=== PATIENT | female | born 1935 | race Caucasian/White ===

== ENCOUNTER → 2017-03-16 | Outpatient (CLI) | payer MEDICARE, OTHER ==
[2017-03-17 11:25] LABS: ALANINE AMINOTRANSFERASE 33 U/L (9-52); ALBUMIN 4.5 g/dL (3.5-5.0); ALKALINE PHOSPHATASE 106 U/L (38-126); ASPARTATE AMINO TRANSFERASE 22 U/L (14-36); BILIRUBIN,DIRECT 0.3 mg/dL (0.0-0.4); BILIRUBIN,TOTAL 0.6 mg/dL (0.2-1.3); CHOLESTEROL 207.41 mg/dL (0-200); Direct HDL 64 mg/dL (>40); TOTAL PROTEIN 7.5 g/dL (6.3-8.2); TRIGLYCERIDES 169 mg/dL (<150)
[2017-03-17 11:36] LABS: DIRECT LDL 112 mg/dL (<100)
[2017-03-17 11:39] LABS: VLDL CHOLESTEROL 33.8 mg/dL (10-31)
== END ==
LOC: OD 14:00
PROVIDERS: ATTEND Specialist
DX: E78.4 Other hyperlipidemia (principal); I10 Essential (primary) hypertension; I25.2 Old myocardial infarction; I34.0 Nonrheumatic mitral (valve) insufficiency; I42.8 Other cardiomyopathies; I73.9 Peripheral vascular disease, unspecified; E78.5 Hyperlipidemia, unspecified; Z79.899 Other long term (current) drug therapy; R07.9 Chest pain, unspecified; R06.00 Dyspnea, unspecified; I25.10 Atherosclerotic heart disease of native coronary artery without angina pectoris
CPT/HCPCS: 36415; 80061; 80076

== ENCOUNTER → 2017-05-05 | Outpatient (CLI) | payer MEDICARE, OTHER ==
[2017-05-05 09:20] LABS: ABSOLUTE EOSINOPHILS # (AUTO) 0.2 10^3/uL (0.0-0.6); ABSOLUTE LYMPHOCYTES (AUTO) 1.2 10^3/uL (0.5-4.7); ABSOLUTE MONOCYTES (AUTO) 0.5 10^3/uL (0.1-1.4); ABSOLUTE NEUT (AUTO) 4.2 10^3/uL (1.7-8.2); BASOPHILS % (AUTO) 0.8 % (0-2); EOSINOPHILS % (AUTO) 2.6 % (0-6); HEMATOCRIT 39.9 % (36.0-47.0); HEMOGLOBIN 12.8 g/dL (12.0-15.5); HGB HCT DIFFERENCE -1.5; LYMPHOCYTES % (AUTO) 19.3 % (13-45); MEAN CORPUSCULAR HEMOGLOBIN 28.6 pg (27.0-33.4); MEAN CORPUSCULAR HGB CONC 32.1 g/dL (32.0-36.0); MEAN CORPUSCULAR VOLUME 89 fl (80-97); MONOCYTES % (AUTO) 8.5 % (3-13); RED BLOOD COUNT 4.47 10^6/uL (3.72-5.28); RED CELL DISTRIBUTION WIDTH 14.6 % (11.5-14.0); SEGMENTED NEUTROPHILS % (AUTO) 68.8 % (42-78); WHITE BLOOD COUNT 6.2 10^3/uL (4.0-10.5)
[2017-05-05 09:52] LABS: ALANINE AMINOTRANSFERASE 21 U/L (9-52); ALBUMIN 3.9 g/dL (3.5-5.0); ALKALINE PHOSPHATASE 108 U/L (38-126); ANION GAP 10 (5-19); ASPARTATE AMINO TRANSFERASE 19 U/L (14-36); BILIRUBIN,DIRECT 0.4 mg/dL (0.0-0.4); BILIRUBIN,TOTAL 0.6 mg/dL (0.2-1.3); BLOOD UREA NITROGEN 18 mg/dL (7-20); CALCIUM 9.2 mg/dL (8.4-10.2); CARBON DIOXIDE 29 mmol/L (22-30); CHLORIDE 107 mmol/L (98-107); CHOLESTEROL 192.66 mg/dL (0-200); CREATININE RESULT 0.66 mg/dL (0.52-1.25); Direct HDL 52 mg/dL (>40); GLUCOSE 95 mg/dL (75-110); POTASSIUM 3.8 mmol/L (3.6-5.0); SODIUM 145.8 mmol/L (137-145); TOTAL PROTEIN 6.7 g/dL (6.3-8.2); TRIGLYCERIDES 131 mg/dL (<150)
[2017-05-05 10:03] LABS: DIRECT LDL 115 mg/dL (<100)
== END ==
LOC: OD 08:25
PROVIDERS: ATTEND Internal Medicine
DX: E78.2 Mixed hyperlipidemia (principal); R53.83 Other fatigue
CPT/HCPCS: 36415; 80053; 80061; 84443; 85025

== ENCOUNTER → 2017-07-19 | Outpatient (CLI) | payer MEDICARE, OTHER ==
[2017-07-19 14:59] LABS: ABSOLUTE EOSINOPHILS # (AUTO) 0.1 10^3/uL (0.0-0.6); ABSOLUTE LYMPHOCYTES (AUTO) 1.2 10^3/uL (0.5-4.7); ABSOLUTE MONOCYTES (AUTO) 0.5 10^3/uL (0.1-1.4); ABSOLUTE NEUT (AUTO) 3.4 10^3/uL (1.7-8.2); BASOPHILS % (AUTO) 0.9 % (0-2); EOSINOPHILS % (AUTO) 2.1 % (0-6); HEMATOCRIT 38.6 % (36.0-47.0); HEMOGLOBIN 12.9 g/dL (12.0-15.5); HGB HCT DIFFERENCE 0.1; LYMPHOCYTES % (AUTO) 23.6 % (13-45); MEAN CORPUSCULAR HEMOGLOBIN 28.8 pg (27.0-33.4); MEAN CORPUSCULAR HGB CONC 33.3 g/dL (32.0-36.0); MEAN CORPUSCULAR VOLUME 86 fl (80-97); RED BLOOD COUNT 4.46 10^6/uL (3.72-5.28); RED CELL DISTRIBUTION WIDTH 14.9 % (11.5-14.0); SEGMENTED NEUTROPHILS % (AUTO) 64.4 % (42-78); WHITE BLOOD COUNT 5.3 10^3/uL (4.0-10.5)
[2017-07-19 15:04] LABS: PARTIAL THROMBOPLASTIN TIME 27.8 SEC (23.5-35.8); PROTHROMBIN TIME 13.8 SEC (11.4-15.4)
[2017-07-19 15:31] LABS: ANION GAP 13 (5-19); BLOOD UREA NITROGEN 23 mg/dL (7-20); CARBON DIOXIDE 24 mmol/L (22-30); CHLORIDE 109 mmol/L (98-107); CREATININE RESULT 0.71 mg/dL (0.52-1.25); GLUCOSE 87 mg/dL (75-110); MAGNESIUM 1.7 mg/dL (1.6-2.3); POTASSIUM 4.6 mmol/L (3.6-5.0); SODIUM 146.2 mmol/L (137-145)
== END ==
LOC: OD 13:39
PROVIDERS: ATTEND Specialist
DX: E78.4 Other hyperlipidemia (principal); I34.0 Nonrheumatic mitral (valve) insufficiency; R07.9 Chest pain, unspecified; I10 Essential (primary) hypertension; I25.2 Old myocardial infarction; I73.9 Peripheral vascular disease, unspecified; R06.00 Dyspnea, unspecified; Z79.899 Other long term (current) drug therapy
CPT/HCPCS: 36415; 80051; 82565; 82947; 83735; 84520; 85025; 85610; 85730

== ENCOUNTER 2017-11-14 12:50 | Observation (INO) | payer MEDICARE, OTHER ==
[2017-11-14] MEDS ORDERED: ASPIRIN 81 MG TABLET, CHEWABLE PO ONE (13:18)
[2017-11-14] MEDS ORDERED: DILTIAZEM HCL INJ 25 MG/5 ML VIAL IV ONE (13:27)
[2017-11-14] MEDS ORDERED: NORMAL SALINE 1000 ML 1,000 ML IV PRN (13:27)
--- NOTE | 2017-11-14 13:28 | ER Document Report ---
ED General - General Chief Complaint: Chest Pain Stated Complaint: CHEST PAIN, DIZZY Time Seen by Provider: 11/14/17 13:18 Mode of Arrival: Ambulatory Information source: Patient Notes: 82-year-old female history of chest pain on nitroglycerin Nitropatch presents with complaints of chest pain sensation this earlier today. Patient notes she has not been feeling well for the past week. She denies any fevers or chills denies any nausea vomiting admits to some shortness of breath. Upon arrival patient is noted to be in A. fib RVR, she denies any history of atrial fibrillation TRAVEL OUTSIDE OF THE [place] IN LAST 30 DAYS: No - HPI Onset: Last week Onset/Duration: Intermittent Quality of pain: Pressure Severity: Mild Pain Level: 1 Associated symptoms: Chest pain, Other Exacerbated by: Denies Relieved by: Denies Similar symptoms previously: Yes Recently seen / treated by doctor: Yes - Related Data Allergies/Adverse Reactions: No Known Allergies Allergy (Verified 04/29/15 10:31) Past Medical History - Social History Smoking Status: Never Smoker Cigarette use (# per day): No Chew tobacco use (# tins/day): No Smoking Education Provided: No Family History: Reviewed & Not Pertinent - Past Medical History Cardiac Medical History: Reports: Hx Heart Attack, Hx Hypertension - cardiovascular disease/ bp medications Pulmonary Medical History: Denies: Hx Asthma Neurological Medical History: Denies: Hx Cerebrovascular Accident, Hx Seizures GI Medical History: Denies: Hx Hepatitis, Hx Hiatal Hernia, Hx Ulcer Psychiatric Medical History: Reports: Hx Depression Infectious Medical History: Denies: Hx Hepatitis Past Surgical History: Reports: Hx Cardiac Surgery - mitral valve repair,, Hx Cholecystectomy, Hx Hysterectomy, Hx Open Heart Surgery - at least 15 yrs ago ( approx 1984). Denies: Hx Mastectomy, Hx Pacemaker. Comment Only: Hx Vascular Surgery - endarterectomy, subclavian bypass, fem fem bypass Review of Systems - Review of Systems Notes: REVIEW OF SYSTEMS: CONSTITUTIONAL : Denies fever, chills, or sweats. Denies recent illness. EENT: Denies eye, ear, throat, or mouth pain or symptoms. Denies nasal or sinus congestion or discharge. Denies throat, tongue, or mouth swelling or difficulty swallowing. CARDIOVASCULAR: Admits to chest pain RESPIRATORY: Denies cough, cold, or chest congestion. Denies shortness of breath, difficulty breathing, or wheezing. GASTROINTESTINAL: Denies abdominal pain or distention. Denies nausea, vomiting , or diarrhea. Denies blood in vomitus, stools, or per rectum. Denies black, tarry stools. Denies constipation. GENITOURINARY: Denies difficulty urinating, painful urination, burning, frequency, blood in urine, or discharge. FEMALE GENITOURINARY: Denies vaginal bleeding, heavy or abnormal periods, irregular periods. Denies vaginal discharge or odor. MUSCULOSKELETAL: Denies back or neck pain or stiffness. Denies joint pain or swelling. SKIN: Denies rash, lesions or sores. HEMATOLOGIC : Denies easy bruising or bleeding. LYMPHATIC: Denies swollen, enlarged glands. NEUROLOGICAL: Denies confusion or altered mental status. Denies passing out or loss of consciousness. Denies dizziness or lightheadedness. Denies headache. Denies weakness or paralysis or loss of use of either side. Denies problems with gait or speech. Denies sensory loss, numbness, or tingling. Denies seizures. PSYCHIATRIC: Denies anxiety or stress. Denies depression, suicidal ideation, or homicidal ideation. ALL OTHER SYSTEMS REVIEWED AND NEGATIVE. PHYSICAL EXAMINATION: GENERAL: Well-appearing, well-nourished and in no acute distress. HEAD: Atraumatic, normocephalic. EYES: Pupils equal round and reactive to light, extraocular movements intact, conjunctiva are normal. ENT: Nares patent, oropharynx clear without exudates. Moist mucous membranes. NECK: Normal range of motion, supple without lymphadenopathy LUNGS: Breath sounds clear to auscultation bilaterally and equal. No wheezes rales or rhonchi. HEART: A. fib RVR ABDOMEN: Soft, nontender, nondistended abdomen. No guarding, no rebound. No masses appreciated. Female : deferred Musculoskeletal: Normal range of motion, no pitting or edema. No cyanosis. NEUROLOGICAL: Cranial nerves grossly intact. Normal speech, normal gait. Normal sensory, motor exams PSYCH: Normal mood, normal affect. SKIN: Warm, Dry, normal turgor, no rashes or lesions noted. Dictation was performed using [employer] voice recognition software Physical Exam - Vital signs Vitals: Temp Pulse Resp BP Pulse Ox 97.3 F 111 H 18 84/49 L 100 11/14/17 13:09 11/14/17 13:09 11/14/17 13:09 11/14/17 13:09 11/14/17 13:09 Course - Re-evaluation Re-evalutation: 11/14/17 14:04 Patient was in A. fib RVR upon arrival heart rate in the 140s, Cardizem bolus has been ordered, prior to the medication being given the patient converted back to the 70s, no history of A. fib 11/14/17 15:06 Patient blood pressure is improved, overall looks well cardiac enzyme was negative I will admit the patient to the hospitalist service - Vital Signs Vital signs: Temp Pulse Resp BP Pulse Ox 97.3 F 111 H 14 96/70 L 98 11/14/17 13:09 11/14/17 13:09 11/14/17 14:03 11/14/17 14:03 11/14/17 13:18 - Laboratory Result Diagrams: 11/14/17 13:42 11/14/17 13:42 Laboratory results interpreted by me: 11/14/17 11/14/17 13:42 13:42 RDW 15.7 H Seg Neutrophils % 78.1 H Lymphocytes % 12.6 L Chloride 111 H BUN 22 H - Diagnostic Test Radiology reviewed: Image reviewed, Reports reviewed - EKG Interpretation by Me EKG shows normal: [place], Intervals, QRS Complexes Rate: Tachycardia Rhythm: A.Fib Critical Care Note - Critical Care Note Total time excluding time spent on procedures (mins): 55 Comments: 55 minutes of critical care time spent in direct contact evaluating and reevaluating the patient, treating symptoms, reviewing labs and studies and speaking with family and consultants excluding any procedures Discharge - Discharge Clinical Impression: Atrial fibrillation Qualifiers: Atrial fibrillation type: paroxysmal Qualified Code(s): I48.0 - Paroxysmal atrial fibrillation Chest pain Qualifiers: Chest pain type: unspecified Qualified Code(s): R07.9 - Chest pain, unspecified Hypotension Qualifiers: Hypotension type: unspecified hypotension type Qualified Code(s): I95.9 - Hypotension, unspecified Condition: Fair Disposition: ADMITTED INPATIENT Admitting Provider: Hospitalist Unit Admitted: Telemetry Referrals: IVORY TRIVEDI MD [Primary Care Provider] - Follow up as needed
[2017-11-14 13:57] LABS: ABSOLUTE BASOPHILS # (AUTO) 0.1 10^3/uL (0.0-0.2); ABSOLUTE EOSINOPHILS # (AUTO) 0.1 10^3/uL (0.0-0.6); ABSOLUTE MONOCYTES (AUTO) 0.5 10^3/uL (0.1-1.4); ABSOLUTE NEUT (AUTO) 5.9 10^3/uL (1.7-8.2); BASOPHILS % (AUTO) 1.2 % (0-2); EOSINOPHILS % (AUTO) 0.9 % (0-6); HEMATOCRIT 40.4 % (36.0-47.0); HEMOGLOBIN 13.2 g/dL (12.0-15.5); LYMPHOCYTES % (AUTO) 12.6 % (13-45); MEAN CORPUSCULAR HEMOGLOBIN 27.8 pg (27.0-33.4); MEAN CORPUSCULAR HGB CONC 32.8 g/dL (32.0-36.0); MEAN CORPUSCULAR VOLUME 85 fl (80-97); MONOCYTES % (AUTO) 7.2 % (3-13); PLATELET COUNT 223 10^3/uL (150-450); RED BLOOD COUNT 4.77 10^6/uL (3.72-5.28); RED CELL DISTRIBUTION WIDTH 15.7 % (11.5-14.0); SEGMENTED NEUTROPHILS % (AUTO) 78.1 % (42-78); TOTAL CELLS COUNTED % (AUTO) 100 %; WHITE BLOOD COUNT 7.5 10^3/uL (4.0-10.5)
--- NOTE | 2017-11-14 14:07 | RADIOLOGY REPORT (SQ) ---
EXAM DESCRIPTION: CHEST SINGLE VIEW COMPLETED DATE/TIME: 11/14/2017 1:58 pm REASON FOR STUDY: chest pain COMPARISON: None. EXAM PARAMETERS: NUMBER OF VIEWS: One view. TECHNIQUE: Single frontal radiographic view of the chest acquired. RADIATION DOSE: NA LIMITATIONS: None. FINDINGS: LUNGS AND PLEURA: No opacities, masses or pneumothorax. No pleural effusion. MEDIASTINUM AND HILAR STRUCTURES: No masses. Contour normal. HEART AND VASCULAR STRUCTURES: The cardiac silhouette is at the upper limits of normal in size. BONES: No acute findings. HARDWARE: Patient is status post median sternotomy with valvular replacement OTHER: No other significant finding. IMPRESSION: NO ACUTE RADIOGRAPHIC FINDING IN THE CHEST. TECHNICAL DOCUMENTATION: JOB ID: [id number] [employer]- All Rights Reserved Reading location - IP/workstation name: [email or web address]
[2017-11-14 14:15] LABS: ALANINE AMINOTRANSFERASE 27 U/L (9-52); ALBUMIN 4.2 g/dL (3.5-5.0); ALKALINE PHOSPHATASE 118 U/L (38-126); ANION GAP 11 (5-19); ASPARTATE AMINO TRANSFERASE 25 U/L (14-36); BILIRUBIN,DIRECT 0.4 mg/dL (0.0-0.4); BILIRUBIN,TOTAL 0.5 mg/dL (0.2-1.3); BLOOD UREA NITROGEN 22 mg/dL (7-20); CALCIUM 9.7 mg/dL (8.4-10.2); CARBON DIOXIDE 22 mmol/L (22-30); CHLORIDE 111 mmol/L (98-107); CREATINE KINASE 35 U/L (30-135); GLUCOSE 101 mg/dL (75-110); POTASSIUM 4.2 mmol/L (3.6-5.0); SODIUM 143.6 mmol/L (137-145); TOTAL PROTEIN 7.1 g/dL (6.3-8.2)
[2017-11-14 14:27] LABS: CREATINE KINASE MB 0.82 ng/mL (<4.55)
[2017-11-14 14:51] LABS: TROPONIN I < 0.012 ng/mL
[2017-11-14] MEDS ORDERED: NITROGLYCERIN 0.4 MG/TAB 25 TAB/BOTTLE SL PRN (16:12)
[2017-11-14] MEDS ORDERED: ONDANSETRON HCL INJ/PF 4 MG/2 ML SDV IV PRN (16:12)
[2017-11-14] MEDS ORDERED: MAG HYDROX/AL HYDROX/SIMETH SUSP 30 ML UDCUP PO PRN (16:12)
--- NOTE | 2017-11-14 16:45 | PDOC H&P ---
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 Upon arrival to the emergency department she was found to be in A. fib with RVR at a rate of 140. The emergency department physician ordered IV diltiazem, ever , prior to receiving the medication the patient had spontaneously converted to a sinus rhythm with frequent PVCs. She reports resolution of chest pain that time. She denies previous similar episodes. 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 She states that they were in an argument last night and that she did not sleep well. Otherwise, she has had no recent illnesses and denies fever, chills, headaches, dizziness, dyspnea, orthopnea, abdominal pain, nausea vomiting and diarrhea. Evaluation in the emergency department an essentially normal laboratory workup and a normal chest x-ray. She is admitted to the hospitalist service for observational admission for chest pain. Past Medical History Cardiac Medical History: Reports: Myocardial Infarction, Hypertension - cardiovascular disease/ bp medications, Other - Claudication Denies: Pulmonary Embolism, Heart Murmur Pulmonary Medical History: Denies: Asthma, Chronic Obstructive Pulmonary Disease (COPD) EENT Medical History: Reports: None Neurological Medical History: Reports: None Denies: Seizures Endocrine Medical History: Reports: Hypothyroidism Renal/ Medical History: Reports: None Malignancy Medical History: Reports: None GI Medical History: Denies: Hepatitis, Hiatal Hernia Skin Medical History: Reports: None Psychiatric Medical History: Reports: Depression Traumatic Medical History: Reports: None Hematology: Denies: Anemia, Sickle Cell Disease Infectious Medical History: Reports: None Past Surgical History Past Surgical History: Reports: Cholecystectomy, Hysterectomy Denies: Amputation, Mastectomy, Pacemaker Comment Only: Vascular Surgery - endarterectomy, subclavian bypass, fem fem bypass Social History Information Source: Patient Lives with: Family Smoking Status: Never Smoker Frequency of Alcohol Use: None Hx Recreational Drug Use: No Drugs: None Hx Prescription Drug Abuse: No - Advance Directive Resuscitation Status: Full Code Family History Family History: Reviewed & Not Pertinent Parental Family History Reviewed: Yes Children Family History Reviewed: Yes Sibling(s) Family History Reviewed.: Yes Medication/Allergy Allergies/Adverse Reactions: No Known Allergies Allergy (Verified 11/14/17 15:19) Review of Systems Constitutional: PRESENT: fatigue. ABSENT: chills, fever(s), headache(s), weight gain, weight loss Eyes: ABSENT: visual disturbances Ears: ABSENT: hearing changes Cardiovascular: PRESENT: chest pain, palpitations. ABSENT: dyspnea on exertion , edema, orthropnea Respiratory: ABSENT: cough, hemoptysis Gastrointestinal: ABSENT: abdominal pain, constipation, diarrhea, hematemesis, hematochezia, nausea, vomiting Genitourinary: ABSENT: dysuria, hematuria Musculoskeletal: ABSENT: joint swelling Integumentary: ABSENT: rash, wounds Neurological: PRESENT: weakness, other - Near syncope. ABSENT: abnormal gait, abnormal speech, confusion, dizziness, focal weakness, syncope Psychiatric: ABSENT: anxiety, depression, homidical ideation, suicidal ideation Endocrine: ABSENT: cold intolerance, heat intolerance, polydipsia, polyuria Hematologic/Lymphatic: ABSENT: easy bleeding, easy bruising Physical Exam Vital Signs: Temp Pulse Resp BP Pulse Ox 97.3 F 111 H 18 100/75 91 L 11/14/17 13:09 11/14/17 13:09 11/14/17 16:01 11/14/17 16:01 11/14/17 16:01 General appearance: PRESENT: no acute distress, well-developed, well-nourished Head exam: PRESENT: atraumatic, normocephalic Eye exam: PRESENT: conjunctiva pink, EOMI, PERRLA. ABSENT: scleral icterus Ear exam: PRESENT: normal external ear exam Mouth exam: PRESENT: moist, tongue midline Neck exam: ABSENT: carotid bruit, JVD, lymphadenopathy, thyromegaly Respiratory exam: PRESENT: clear to auscultation shay. ABSENT: rales, rhonchi, wheezes Cardiovascular exam: PRESENT: RRR, +S1, +S2. ABSENT: diastolic murmur, rubs, systolic murmur Pulses: PRESENT: normal dorsalis pedis pul Vascular exam: PRESENT: normal capillary refill GI/Abdominal exam: PRESENT: normal bowel sounds, soft. ABSENT: distended, guarding, mass, organolmegaly, rebound, tenderness Rectal exam: PRESENT: deferred Extremities exam: PRESENT: full ROM. ABSENT: calf tenderness, clubbing, pedal edema Neurological exam: PRESENT: alert, awake, oriented to person, oriented to place , oriented to time, oriented to situation, CN II-XII grossly intact. ABSENT: motor sensory deficit Psychiatric exam: PRESENT: anxious, appropriate affect, normal mood. ABSENT: homicidal ideation, suicidal ideation Skin exam: PRESENT: dry, intact, warm. ABSENT: cyanosis, rash Results Impressions: Chest X-Ray 11/14/17 13:18 IMPRESSION: NO ACUTE RADIOGRAPHIC FINDING IN THE CHEST. Assessment & Plan - Diagnosis (1) Chest pain Qualifiers: Chest pain type: unspecified Qualified Code(s): R07.9 - Chest pain, unspecified Is this a current diagnosis for this admission?: Yes Plan: The patient presented with a chest complaint described as pressure radiating to her neck associated with near syncope. She does have a positive cardiac history. Pain may have been related to A. fib with RVR versus acute coronary syndrome. Chest score of moderate probability. The patient reports that she recently had a nuclear stress test at Dr. Boyer's office but she does not know the results; will ask nursing to assist in obtaining records. She is admitted on continuous cardiac telemetry. We will trend troponins. We will obtain an echocardiogram. She will continue her home dose Plavix. Will start on daily aspirin 81 mg. We will plan for stress testing if unable to obtain records. (2) Atrial fibrillation Qualifiers: Atrial fibrillation type: paroxysmal Qualified Code(s): I48.0 - Paroxysmal atrial fibrillation Is this a current diagnosis for this admission?: Yes Plan: The patient presented in A. fib with RVR at rate of 140 which spontaneously converted to a normal sinus rhythm with frequent PVCs. TSH is normal. The patient is placed on Toprol-XL 12.5 mg twice daily. She will be monitored on continuous cardiac telemetry. She does have a CHADS2-vasc score of 3; high risk with recommendation for oral anticoagulation. However, the patient tells me that she has a history of GI bleeding requiring transfusion in the past. Bleed score: Risk is intermediate with a estimated yearly risk of major bleed being 2.5%. Will need to discuss risk/benefits of chronic anticoagulation therapy thoroughly with patient. Continue Plavix and daily aspirin. Cardiology has been consulted; appreciate their evaluation recommendations. (3) Hyperlipidemia Is this a current diagnosis for this admission?: Yes Plan: Simvastatin 20 mg daily. (4) Depression Is this a current diagnosis for this admission?: Yes Plan: Will continue home medications once reconciled. (5) Hypotension Qualifiers: Hypotension type: unspecified hypotension type Qualified Code(s): I95.9 - Hypotension, unspecified Is this a current diagnosis for this admission?: Yes Plan: Secondary to Afib w/RVR. Improved following conversion to NSR. Pt states that she has a dx of orthostatic hypotension. Will monitor closely. She has received a 2L NS bolus by ED; will hold on further maintenance IV fluids as she is unaware of possible CHF diagnosis. Have decreased Nitro-Dur transdermal patch from 0.2mg/Hr to 0.1mg/Hr. - Time Time Spent: 50 to 70 Minutes Medications reviewed and adjusted accordingly: Yes Anticipated discharge: Home Within: within 24 hours
[2017-11-14] MEDS: NITROGLYCERIN 2.5 MG (0.1 MG/HR) PATCH.TD24 TD SCH (18:33)
[2017-11-14] MEDS: SIMVASTATIN 10 MG TABLET PO SCH (18:33)
[2017-11-14] MEDS ORDERED: MAGNESIUM SULFATE/D5W 1 GM/100 ML RTUPB IV ONE (19:00)
[2017-11-14] MEDS ORDERED: METOPROLOL TARTRATE 25 MG TABLET PO SCH (22:00)
[2017-11-14] MEDS: METOPROLOL SUCCINATE 25 MG TAB.SR.24H PO SCH (22:00)
[2017-11-14] MEDS: FAMOTIDINE 20 MG TABLET PO SCH (22:00)
--- NOTE | 2017-11-14 23:40 | EKG REPORT ---
SEVERITY:- ABNORMAL ECG - ATRIAL FIBRILLATION LEFT AXIS DEVIATION LVH WITH SECONDARY REPOLARIZATION ABNORMALITY BORDERLINE PROLONGED QT INTERVAL : Confirmed by: Chavo Mccabe 14-Nov-2017 23:39:16
[2017-11-15 04:42] LABS: ABSOLUTE BASOPHILS # (AUTO) 0.1 10^3/uL (0.0-0.2); ABSOLUTE EOSINOPHILS # (AUTO) 0.1 10^3/uL (0.0-0.6); ABSOLUTE LYMPHOCYTES (AUTO) 1.5 10^3/uL (0.5-4.7); ABSOLUTE MONOCYTES (AUTO) 0.7 10^3/uL (0.1-1.4); ABSOLUTE NEUT (AUTO) 5.2 10^3/uL (1.7-8.2); BASOPHILS % (AUTO) 0.7 % (0-2); EOSINOPHILS % (AUTO) 1.6 % (0-6); HEMATOCRIT 35.7 % (36.0-47.0); HEMOGLOBIN 11.7 g/dL (12.0-15.5); MEAN CORPUSCULAR HEMOGLOBIN 27.8 pg (27.0-33.4); MEAN CORPUSCULAR HGB CONC 32.6 g/dL (32.0-36.0); MEAN CORPUSCULAR VOLUME 85 fl (80-97); MONOCYTES % (AUTO) 8.9 % (3-13); PLATELET COUNT 195 10^3/uL (150-450); RED CELL DISTRIBUTION WIDTH 16.3 % (11.5-14.0); SEGMENTED NEUTROPHILS % (AUTO) 68.8 % (42-78); TOTAL CELLS COUNTED % (AUTO) 100 %; WHITE BLOOD COUNT 7.5 10^3/uL (4.0-10.5)
[2017-11-15 05:05] LABS: ANION GAP 10 (5-19); BLOOD UREA NITROGEN 17 mg/dL (7-20); CALCIUM 8.5 mg/dL (8.4-10.2); CARBON DIOXIDE 20 mmol/L (22-30); CHLORIDE 114 mmol/L (98-107); CHOLESTEROL 195.12 mg/dL (0-200); GLUCOSE 80 mg/dL (75-110); POTASSIUM 3.7 mmol/L (3.6-5.0); SODIUM 144.1 mmol/L (137-145); TRIGLYCERIDES 140 mg/dL (<150)
[2017-11-15 05:16] LABS: DIRECT LDL 130 mg/dL (<100)
[2017-11-15] MEDS: CLOPIDOGREL BISULFATE 75 MG TABLET PO SCH (09:32)
[2017-11-15] MEDS: DOCUSATE SODIUM 100 MG CAPSULE PO SCH (09:32)
[2017-11-15] MEDS: ASPIRIN 81 MG TABLET, ENT COATED PO SCH (09:32)
[2017-11-15] MEDS: FAMOTIDINE 20 MG TABLET PO SCH ×2 (09:32→21:43)
--- NOTE | 2017-11-15 09:32 | EKG REPORT ---
SEVERITY:- OTHERWISE NORMAL ECG - SINUS RHYTHM VENTRICULAR PREMATURE COMPLEX : Confirmed by: Chavo Mccabe 15-Nov-2017 09:31:39
[2017-11-15] MEDS: METOPROLOL SUCCINATE 25 MG TAB.SR.24H PO SCH ×2 (09:33→16:13)
[2017-11-15] MEDS: LISINOPRIL 10 MG TABLET PO SCH (09:33)
[2017-11-15] MEDS ORDERED: LISINOPRIL 5 MG TABLET PO SCH (10:00)
--- NOTE | 2017-11-15 17:14 | PDOC PROGRESS REPORT ---
Subjective Progress Note for:: 11/15/17 Subjective:: Patient is a 82-year-old female that was admitted with chest pain. She was also found to have multiple PVCs and she has been seen by Dr. Mccabe. Echocardiogram is pending today and patient is scheduled for stress test in a.m. She denies any significant complaints. Reason For Visit: CHEST PAIN,PAF Physical Exam Vital Signs: Temp Pulse Resp BP Pulse Ox 98.0 F 72 21 H 124/75 94 11/15/17 07:26 11/15/17 14:17 11/15/17 07:26 11/15/17 07:26 11/15/17 07:26 Intake & Output 11/14/17 11/15/17 11/16/17 06:59 06:59 06:59 Intake Total 775 Balance 775 Weight 56.3 kg General appearance: PRESENT: no acute distress Head exam: PRESENT: atraumatic, normocephalic Neck exam: ABSENT: carotid bruit, JVD, lymphadenopathy, thyromegaly Respiratory exam: PRESENT: clear to auscultation shay. ABSENT: rales, rhonchi, wheezes Cardiovascular exam: PRESENT: irregular rhythm, +S1, +S2 Pulses: PRESENT: normal dorsalis pedis pul GI/Abdominal exam: PRESENT: normal bowel sounds, soft. ABSENT: distended, guarding, mass, organolmegaly, rebound, tenderness Rectal exam: PRESENT: deferred Extremities exam: PRESENT: full ROM. ABSENT: calf tenderness, clubbing, pedal edema Neurological exam: PRESENT: alert, awake, oriented to place, oriented to time, oriented to situation Psychiatric exam: PRESENT: appropriate affect, normal mood. ABSENT: homicidal ideation, suicidal ideation Results Laboratory Results: 11/15/17 04:20 11/15/17 04:20 11/15/17 11/15/17 04:20 04:20 WBC 7.5 RBC 4.20 Hgb 11.7 L Hct 35.7 L MCV 85 MCH 27.8 MCHC 32.6 RDW 16.3 H Plt Count 195 Seg Neutrophils % 68.8 Lymphocytes % 20.0 Monocytes % 8.9 Eosinophils % 1.6 Basophils % 0.7 Absolute Neutrophils 5.2 Absolute Lymphocytes 1.5 Absolute Monocytes 0.7 Absolute Eosinophils 0.1 Absolute Basophils 0.1 Sodium 144.1 Potassium 3.7 Chloride 114 H Carbon Dioxide 20 L Anion Gap 10 BUN 17 Creatinine 0.58 Est GFR ( Amer) > 60 Est GFR (Non-Af Amer) > 60 Glucose 80 Calcium 8.5 Triglycerides 140 Cholesterol 195.12 LDL Cholesterol Direct 130 H VLDL Cholesterol 28.0 HDL Cholesterol 47 11/14/17 11/14/17 11/15/17 16:53 22:11 04:20 Troponin I < 0.012 < 0.012 < 0.012 Impressions: Chest X-Ray 11/14/17 13:18 IMPRESSION: NO ACUTE RADIOGRAPHIC FINDING IN THE CHEST. Assessment & Plan - Plan Summary Plan Summary: 1,Chest pain probably related to her palpitations. Stress test was scheduled for tomorrow and if this is negative patient can likely be discharged home 2. Atrial fibrillation with a rapid ventricular response. She apparently converted spontaneously to sinus rhythm but she remains with frequent PVCs 3. Hyperlipidemia chronic on simvastatin 4. Hypotension probably associated with atrial fibrillation. Resolved 5.PVC's - cont to monitor
[2017-11-15] MEDS: NITROGLYCERIN 2.5 MG (0.1 MG/HR) PATCH.TD24 TD SCH (17:18)
[2017-11-15] MEDS: SIMVASTATIN 10 MG TABLET PO SCH (17:19)
--- NOTE | 2017-11-15 18:32 | XCELERA REPORT ---
[address] [address] Transthoracic Echocardiogram Report Name: MAINE OLIVEIRA Age: 82 yrs Gender: Female : 1935 Patient Status: Inpatient Patient Location: [address] [place] [address] Study Date: 11/15/2017 01:40 PM Height: 59 in Weight: 124 lb BSA: 1.5 m2 Procedure: A complete two-dimensional transthoracic echocardiogram was performed (2D, M-mode, spectral and color flow Doppler). The study was technically difficult with many images being suboptimal in quality. Reason For Study: Chest pain Ordering Physician: WES STEPHENC Performed By: Catherine Banda Interpretation Summary Left ventricular systolic function is mildly reduced. The Ejection Fraction estimate is 40-45% There is borderline concentric left ventricular hypertrophy. The left ventricle is grossly normal size. Doppler measurements suggest pseudonormalized left ventricular relaxation, which is associated with grade II/IV or mild to moderate diastolic dysfunction Regional wall motion abnormalities cannot be excluded due to limited visualization. The right ventricular systolic function is normal. The left atrium is moderately dilated. The right atrium is normal in size There is moderate mitral leaflet calcification. There is moderate to severe mitral annular calcification. There is moderate mitral stenosis There is a mild amount of mitral regurgitation No aortic regurgitation is present. There is no aortic valve stenosis There is a trace or physiologic amount of tricuspid regurgitation Tricuspid regurgitation jet envelope not well defined to measure RV systolic pressure accurately. The inferior vena cava appeared normal and decreased > 50% with respiration (RAP 5-10 mmHg) There is no pericardial effusion. MMode/2D Measurements & Calculations RVDd: 2.2 cm LVIDd: 5.2 cm FS: 17.2 % EPSS: 1.5 cm IVSd: 1.00 cm LVIDs: 4.3 cm EDV(Teich): 131.3 ml LVPWd: 0.96 cm ESV(Teich): 84.5 ml EF(Teich): 35.7 % Ao root diam: 2.6 cm LVOT diam: 1.8 cm Ao root area: 5.5 cm2 LVOT area: 2.7 cm2 LA dimension: 4.1 cm Doppler Measurements & Calculations MV E max huan: MV V2 max: MV P1/2t max huan: Ao V2 max: 160.4 cm/sec 208.5 cm/sec 161.0 cm/sec 128.6 cm/sec MV A max huan: MV max PG: MV P1/2t: 94.3 msec Ao max P.0 cm/sec 17.4 mmHg MVA(P1/2t): 2.3 cm2 6.6 mmHg MV E/A: 2.2 MV V2 mean: MV dec slope: Ao V2 mean: 96.7 cm/sec 500.4 cm/sec2 93.4 cm/sec MV mean PG: Ao mean P.9 mmHg 3.8 mmHg MV V2 VTI: Ao V2 VTI: 30.6 cm 51.4 cm QUINTEN(I,D): 1.9 cm2 MVA(VTI): 1.2 cm2 QUINTEN(V,D): 1.8 cm2 LV V1 max PG: SV(LVOT): 59.1 mlPA V2 max: PI end-d huan: 3.0 mmHg 76.5 cm/sec 161.9 cm/sec LV V1 mean PG: PA max P.3 mmHg 1.7 mmHg LV V1 max: 86.4 cm/sec LV V1 mean: 62.2 cm/sec LV V1 VTI: 22.1 cm LV dP/dt: 909.0 mmHg/s TR max huan: 239.8 cm/sec TR max P.0 mmHg Left Ventricle The left ventricle is grossly normal size. There is borderline concentric left ventricular hypertrophy. Left ventricular systolic function is mildly reduced. The Ejection Fraction estimate is 40-45%. Doppler measurements suggest pseudonormalized left ventricular relaxation, which is associated with grade II/IV or mild to moderate diastolic dysfunction. Regional wall motion abnormalities cannot be excluded due to limited visualization. Right Ventricle The right ventricle is grossly normal size. There is normal right ventricular wall thickness. The right ventricular systolic function is normal. Atria The right atrium is normal in size. The left atrium is moderately dilated. Interarterial septum not well visualized and not well dopplered. Cannot comment on ASD/PFO presence. Mitral Valve There is moderate mitral leaflet calcification. There is moderate to severe mitral annular calcification. There is moderate mitral stenosis. There is a mild amount of mitral regurgitation. Aortic Valve The aortic valve is not well visualized secondary to technical limitations. There is no aortic valve stenosis. No aortic regurgitation is present. Tricuspid Valve The tricuspid valve is not well visualized secondary to technical limitations. There is no tricuspid stenosis. There is a trace or physiologic amount of tricuspid regurgitation. Tricuspid regurgitation jet envelope not well defined to measure RV systolic pressure accurately. Great Vessels The aortic root is not well visualized. The inferior vena cava appeared normal and decreased > 50% with respiration (RAP 5-10 mmHg). Effusions There is no pericardial effusion. : JULIANA STEPHEN > Chavo Mccabe
[2017-11-16] MEDS ORDERED: OLANZAPINE 5 MG TABLET PO PRN (02:15)
--- NOTE | 2017-11-16 08:59 | EKG REPORT ---
SEVERITY:- ABNORMAL ECG - SINUS RHYTHM PROBABLE LVH WITH SECONDARY REPOL ABNRM : Confirmed by: Chavo Mccabe 16-Nov-2017 08:58:59
[2017-11-16] MEDS: METOPROLOL SUCCINATE 25 MG TAB.SR.24H PO SCH ×3 (11:27→21:20)
[2017-11-16] MEDS: ASPIRIN 81 MG TABLET, ENT COATED PO SCH (11:28)
[2017-11-16] MEDS: FAMOTIDINE 20 MG TABLET PO SCH ×2 (11:28→21:21)
[2017-11-16] MEDS: DOCUSATE SODIUM 100 MG CAPSULE PO SCH (11:28)
[2017-11-16] MEDS: CLOPIDOGREL BISULFATE 75 MG TABLET PO SCH (11:29)
[2017-11-16] MEDS: LISINOPRIL 10 MG TABLET PO SCH (11:29)
--- NOTE | 2017-11-16 11:38 | PDOC CONSULTATION ---
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 Upon arrival to the emergency department she was found to be in A. fib with RVR at a rate of 140. The emergency department physician ordered IV diltiazem, ever , prior to receiving the medication the patient had spontaneously converted to a sinus rhythm with frequent PVCs. She reports resolution of chest pain that time. She denies previous similar episodes. 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 She states that they were in an argument last night and that she did not sleep well. Otherwise, she has had no recent illnesses and denies fever, chills, headaches, dizziness, dyspnea, orthopnea, abdominal pain, nausea vomiting and diarrhea. Evaluation in the emergency department an essentially normal laboratory workup and a normal chest x-ray. She is admitted to the hospitalist service for observational admission for chest pain. This history obtained by the hospitalist was reviewed and confirmed. Patient tells me in addition that she has a history of mitral valve repair. She has a questionable history of stent placement in her heart in the coronaries. Patient denied any exertional chest pain. Patient has noted some generalized weakness. Patient denied prior history of strokes or mini strokes. Past Medical History Cardiac Medical History: Reports: Myocardial Infarction, Hypertension - cardiovascular disease/ bp medications, Other - Claudication Denies: Pulmonary Embolism, Heart Murmur Pulmonary Medical History: Denies: Asthma, Chronic Obstructive Pulmonary Disease (COPD) EENT Medical History: Reports: None Neurological Medical History: Reports: None Denies: Seizures Endocrine Medical History: Reports: None, Hypothyroidism Renal/ Medical History: Reports: None Malignancy Medical History: Reports: None GI Medical History: Denies: Hepatitis, Hiatal Hernia Skin Medical History: Reports: None Psychiatric Medical History: Reports: Depression Traumatic Medical History: Reports: None Hematology: Denies: Anemia, Sickle Cell Disease Infectious Medical History: Reports: None Past Surgical History Past Surgical History: Reports: Cholecystectomy, Hysterectomy, Valve Replacement - Mitral valve repair Denies: Amputation, Mastectomy, Pacemaker Comment Only: Vascular Surgery - endarterectomy, subclavian bypass, fem fem bypass Social History Information Source: Patient Lives with: Family Smoking Status: Never Smoker Frequency of Alcohol Use: None Hx Recreational Drug Use: No Drugs: None Hx Prescription Drug Abuse: No - Advance Directive Resuscitation Status: Full Code Surrogate healthcare decision maker:: Patient's is the surrogate decision-maker Family History Family History: Hypertension Parental Family History Reviewed: Yes Children Family History Reviewed: Yes Sibling(s) Family History Reviewed.: Yes Medication/Allergy Home Medications: Atenolol [Tenormin 50 mg Tablet] 50 mg PO DAILY 11/14/17 Cholecalciferol (Vitamin D3) [Vitamin D3 1000 Unit Tablet] 2,000 unit PO DAILY 11/14/17 Clopidogrel Bisulfate [Plavix 75 mg Tablet] 75 mg PO DAILY 11/14/17 Hyoscyamine Sulfate [Levsin 0.125 Tablet] 0.125 mg SL Q6HP PRN 11/14/17 Lisinopril [Prinivil 5 mg Tablet] 2.5 mg PO QPM 11/14/17 Lisinopril [Prinivil 5 mg Tablet] 5 mg PO QAM 11/14/17 Nitroglycerin [Nitro-Dur 5 mg (0.2 mg/Hr) Transdermal Patch] 1 patch TOP DAILY 11/14/17 Rosuvastatin Calcium [Crestor] 5 mg PO QHS 11/14/17 Felodipine [Plendil] 5 mg PO DAILY 11/16/17 Meclizine HCl 12.5 mg PO Q12H PRN 11/16/17 Aspirin [Ecotrin 81 mg EC Tablet] 81 mg PO DAILY tabec 11/19/17 Lidocaine [Lidoderm 5% (700 mg) Transdermal Patch] 1 patch TP DAILY PRN 30 Days #30 adh..patch 11/19/17 Sertraline HCl [Zoloft 50 mg Tablet] 100 mg PO DAILY tablet 11/19/17 Allergies/Adverse Reactions: No Known Allergies Allergy (Verified 11/14/17 15:19) Review of Systems Review of Systems: Please see history of present illness and past medical history as wall. Constitutional: No fever or chills reported. Head : No recent chronic headaches, recent head injury. Eyes: No recent eye pain, diplopia, redness, discharge, acute visual changes. Ears: No recent chronic ear pain, acute hearing loss, ear discharge. Oral cavity: No recent ulcerations, bleeding, oral cavity discomfort. Neck: No recent acute neck pain reported. Hematologic: No recent easy bruising or bleeding or hematologic malignancy reported. Lymphatic: No recent lymphatic malignancy, chronic lymphadenopathy reported yet Cardiovascular system review: See history of present illness. Respiratory system review: No recent chronic cough, hemoptysis, blood clots in the lungs reported. Mild Shortness of breath on exertion Gastrointestinal system review: Negative for any recent acute or chronic abdominal pain, hematemesis, melena, recent change in bowel habits. Genitourinary system review: No recent acute or chronic hematuria, flank pain, UTI etc. reported. Skin system review: Negative for any recent abnormal bruising, no rash, no pruritus reported. Neurologic: No prior history of strokes, mini strokes, seizure disorder. Psychologic: No history of major psychosis or major depression reported. Musculoskeletal: Minor aches and pains reported. No acute joint swelling reported. Endocrine: No recent polyuria, polydipsia, recent heat or cold intolerance. Physical Exam Vital Signs: Temp Pulse Resp BP Pulse Ox 98.3 F 71 18 118/55 L 96 11/14/17 20:00 11/14/17 20:00 11/14/17 20:00 11/14/17 20:00 11/14/17 20:00 Exam: GENERAL: well-nourished and in no acute distress. Alert and oriented x3 HEAD: Atraumatic, normocephalic. EYES: Pupils equal round and reactive to light, extraocular movements intact, sclera anicteric, conjunctiva are normal. ENT: TMs normal, nares patent, oropharynx clear without exudates. Moist mucous membranes. No oral ulcerations or bleeding gums noted NECK: supple without lymphadenopathy. Trachea is central. No cervical or axillary lymphadenopathy noted. Carotids are 2+, JVD WNL LUNGS: Respiration seems nonlabored, no significant accessory muscle action noted. Breath sounds clear to auscultation bilaterally and equal noted. No wheezes rales or rhonchi noted. No significant dullness noted on percussion. CHEST: Palpation of the chest wall shows no significant chest wall tenderness. No other significant abnormalities noted. 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 ABDOMEN: Soft, no significant tenderness appreciated, normoactive bowel sounds. No guarding, no rebound. No rigidity noted . No masses appreciated. EXTREMITIES: Pedal pulses are 1-2+, no calf tenderness noted. No clubbing or cyanosis. Negative pedal edema noted NEUROLOGICAL: Focused neurological exam showed no significant neurologic deficit. Normal speech, no focal weakness appreciated. PSYCH: Normal mood, normal affect. Judgment and insight within normal limits. SKIN: No significant ecchymosis, skin is noted to be warm. MUSCULOSKELETAL EXAM: No significant acute joint swelling noted. Results Laboratory Results: 11/14/17 16:53 Troponin I < 0.012 EKG Comments: Atrial fibrillation with rapid ventricular response. Minor nonspecific ST-T wave changes noted. Impressions: Chest X-Ray 11/14/17 13:18 IMPRESSION: NO ACUTE RADIOGRAPHIC FINDING IN THE CHEST. Assessment & Plan - Diagnosis (1) Atrial fibrillation Qualifiers: Atrial fibrillation type: paroxysmal Qualified Code(s): I48.0 - Paroxysmal atrial fibrillation Is this a current diagnosis for this admission?: Yes (2) Chest pain Qualifiers: Chest pain type: unspecified Qualified Code(s): R07.9 - Chest pain, unspecified Is this a current diagnosis for this admission?: Yes (3) Hyperlipidemia Is this a current diagnosis for this admission?: Yes (4) Hypotension Qualifiers: Hypotension type: unspecified hypotension type Qualified Code(s): I95.9 - Hypotension, unspecified Is this a current diagnosis for this admission?: Yes (5) S/P MVR (mitral valve repair) Is this a current diagnosis for this admission?: Yes (6) Hypertension Qualifiers: Hypertension type: essential hypertension Qualified Code(s): I10 - Essential (primary) hypertension Is this a current diagnosis for this admission?: Yes - Notes Notes: Atrial fibrillation paroxysmal: Patient converted spontaneously to sinus rhythm. Currently on aspirin and Plavix therapy. Patient does have history of mitral valve repair. Patient would benefit from chronic anticoagulation if there are no contraindication. However this decision may be best left to patient's public health sanitarian and office correspondent. If Eliquis is used, the correct dose would be 2.5 mg p.o. twice daily. In the absence of mechanical mitral valve and significant mitral stenosis, Eliquis should be adequate. Will discuss this further with the patient. At this point agree either continuing Cardizem/beta-blockers for both rate control should patient go back into atrial fibrillation. Patient may benefit from a event monitor after discharge to look for any recurrence of atrial fibrillation. Chest pain: Most likely precipitated by atrial fibrillation. Patient has significant peripheral vascular disease. Therefore would be a candidate for nuclear stress test. This will be scheduled. Dyslipidemia: Recommend high potency statin therapy. Hypotension: Resolved by normal saline bolus. Patient was possibly volume depleted. Atrial fibrillation could have contributed to it. Hypertension: Resume patient's home antihypertensive once blood pressure has stabilized. LUNA inhibitor/ARB preferred in presence of PVD and possible underlying CAD. Status post mitral valve repair: A 2D echocardiogram ordered will be reviewed. Patient to report any further problems. - Time Time Spent: 30 to 50 Minutes - CODE STATUS was discussed, patient remains full code. Surrogate decision-maker unchanged. Multiple medical problems were addressed. More than 50% of the time spent coordinating care, discussing management plans with involved caregivers. Management plans discussed with involved personnels. Medical decision making was of moderate to high complexity , patient's has multiple comorbidities. Medications reviewed and adjusted accordingly: Yes
--- NOTE | 2017-11-16 11:47 | PDOC PROGRESS REPORT ---
Subjective Progress Note for:: 11/15/17 Subjective:: Patient seems to be doing better with gradual improvement. Pt is denying any chest arm or neck discomfort. Patient denying any PND, orthopnea. Patient denied any sustained palpitations, dizziness, syncope, near syncope. Patient denying any fever chills. Patient denying any other significant discomfort. Patient is maintaining sinus rhythm. Review of systems: Rest review of systems negative. Medications: Medications have been reviewed. Reason For Visit: CHEST PAIN,PAF Physical Exam Vital Signs: Temp Pulse Resp BP Pulse Ox 97.5 F 70 16 101/77 97 11/15/17 15:23 11/15/17 15:23 11/15/17 15:23 11/15/17 15:23 11/15/17 15:23 Intake & Output 11/14/17 11/15/17 11/16/17 06:59 06:59 06:59 Intake Total 775 360 Balance 775 360 Weight 56.3 kg Exam: GENERAL: well-nourished and in no acute distress. Alert and oriented x3 HEAD: Atraumatic, normocephalic. EYES: Pupils equal round and reactive to light, extraocular movements intact, sclera anicteric, conjunctiva are normal. ENT: TMs normal, nares patent, oropharynx clear without exudates. Moist mucous membranes. No oral ulcerations or bleeding gums noted NECK: supple without lymphadenopathy. Trachea is central. No cervical or axillary lymphadenopathy noted. Carotids are 2+, JVD WNL LUNGS: Respiration seems nonlabored, no significant accessory muscle action noted. Breath sounds clear to auscultation bilaterally and equal noted. No wheezes rales or rhonchi noted. No significant dullness noted on percussion. CHEST: Palpation of the chest wall shows no significant chest wall tenderness. No other significant abnormalities noted. 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 ABDOMEN: Soft, no significant tenderness appreciated, normoactive bowel sounds. No guarding, no rebound. No rigidity noted . No masses appreciated. EXTREMITIES: Pedal pulses are 1-2+, no calf tenderness noted. No clubbing or cyanosis. negative pedal edema noted NEUROLOGICAL: Focused neurological exam showed no significant neurologic deficit. Normal speech, no focal weakness appreciated. PSYCH: Normal mood, normal affect. Judgment and insight within normal limits. SKIN: No significant ecchymosis, skin is noted to be warm. MUSCULOSKELETAL EXAM: No significant acute joint swelling noted. Results Laboratory Results: 11/15/17 04:20 11/15/17 04:20 11/15/17 11/15/17 04:20 04:20 WBC 7.5 RBC 4.20 Hgb 11.7 L Hct 35.7 L MCV 85 MCH 27.8 MCHC 32.6 RDW 16.3 H Plt Count 195 Seg Neutrophils % 68.8 Lymphocytes % 20.0 Monocytes % 8.9 Eosinophils % 1.6 Basophils % 0.7 Absolute Neutrophils 5.2 Absolute Lymphocytes 1.5 Absolute Monocytes 0.7 Absolute Eosinophils 0.1 Absolute Basophils 0.1 Sodium 144.1 Potassium 3.7 Chloride 114 H Carbon Dioxide 20 L Anion Gap 10 BUN 17 Creatinine 0.58 Est GFR ( Amer) > 60 Est GFR (Non-Af Amer) > 60 Glucose 80 Calcium 8.5 Triglycerides 140 Cholesterol 195.12 LDL Cholesterol Direct 130 H VLDL Cholesterol 28.0 HDL Cholesterol 47 11/14/17 11/14/17 11/15/17 16:53 22:11 04:20 Troponin I < 0.012 < 0.012 < 0.012 EKG Comments: Twelve-lead EKG reviewed shows patient maintaining sinus rhythm. Impressions: Chest X-Ray 11/14/17 13:18 IMPRESSION: NO ACUTE RADIOGRAPHIC FINDING IN THE CHEST. Assessment & Plan - Diagnosis (1) Atrial fibrillation Qualifiers: Atrial fibrillation type: paroxysmal Qualified Code(s): I48.0 - Paroxysmal atrial fibrillation Is this a current diagnosis for this admission?: Yes (2) Chest pain Qualifiers: Chest pain type: unspecified Qualified Code(s): R07.9 - Chest pain, unspecified Is this a current diagnosis for this admission?: Yes (3) Hyperlipidemia Is this a current diagnosis for this admission?: Yes (4) Hypertension Qualifiers: Hypertension type: essential hypertension Qualified Code(s): I10 - Essential (primary) hypertension Is this a current diagnosis for this admission?: Yes (5) Hypotension Qualifiers: Hypotension type: unspecified hypotension type Qualified Code(s): I95.9 - Hypotension, unspecified Is this a current diagnosis for this admission?: Yes (6) S/P MVR (mitral valve repair) Is this a current diagnosis for this admission?: Yes - Notes Notes: Atrial fibrillation paroxysmal: Patient converted spontaneously to sinus rhythm. So far there has been no recurrences. Currently on aspirin and Plavix therapy. Patient does have history of mitral valve repair. Patient would benefit from chronic anticoagulation if there are no contraindication. 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 If Eliquis is used, the correct dose would be 2.5 mg p.o. twice daily. In the absence of mechanical mitral valve and significant mitral stenosis, Eliquis should be adequate. Will discuss this further with the patient. At this point agree either continuing Cardizem/beta-blockers for both rate control should patient go back into atrial fibrillation. Patient may benefit from a event monitor after discharge to look for any recurrence of atrial fibrillation. Chest pain: Most likely precipitated by atrial fibrillation. Patient has significant peripheral vascular disease. Therefore would be a candidate for nuclear stress test. Nuclear stress test scheduled. Dyslipidemia: Recommend high potency statin therapy. Hypotension: Resolved by normal saline bolus. Patient was possibly volume depleted. Atrial fibrillation could have contributed to it. Hypertension: Resume patient's home antihypertensive once blood pressure has stabilized. LUNA inhibitor/ARB preferred in presence of PVD and possible underlying CAD. Status post mitral valve repair: 2D echocardiogram reviewed. It shows residual mitral stenosis in a previously repaired valve, which is felt to be mild to moderate. Patient to report any further problems. - Time Time with patient: Greater than 35 minutes - CODE STATUS was discussed, patient remains full code. Surrogate decision-maker unchanged. Multiple medical problems were addressed. More than 50% of the time spent coordinating care, discussing management plans with involved caregivers. Management plans discussed with involved personnels. Medical decision making was of moderate to high complexity, patient's has multiple comorbidities. Medications reviewed and adjusted accordingly: Yes
--- NOTE | 2017-11-16 12:59 | DRAGON STRESS TEST REPORT ---
INTRAVENOUS LEXISCAN CARDIOLITE STRESS TEST USING SINGLE PHOTON EMMISION COMPUTERIZED TOMOGRAPHIC. DATE OF PROCEDURE: November 16, 2017, INDICATION : Chest pain CARDIAC RISK FACTORS: Peripheral vascular disease, hypertension, dyslipidemia, atrial fibrillation with rapid response on presentation RESTING EKG: Sinus rhythm, nonspecific ST-T wave changes possibly LVH related, APCs and VPCs noted. STRESS EKG: No significant ST segment changes noted with LexiScan bolus REASON FOR TERMINATION: Protocol. PROCEDURE REPORT: Baseline heart rate 94 beats per minute with blood pressure of 127/67. Patient had no significant complaints. Patient was bolused with Lexiscan 0.4 mg intravenously followed by saline bolus. Heart rate at 2 minutes post bolus 106 with a blood pressure of 137/61. 3 minutes post bolus heart rate 100 with blood pressure of 135/59. No significant EKG changes were noted. Patient had no significant complaints during the procedure or postprocedure. Patient injected with Aminophyllin 75 mg at 3 minutes or later after Lexiscan bolus. CONCLUSIONS: Normal EKG and hemodynamic response to IV LexiScan. NUCLEAR DATA: At rest the patient was given 10.82 millicuries of technetium 99 sestamibi injected intravenously. As per protocol rest gated SPECT images were obtained. On day of stress test, the patient was given intravenous LexiScan at a dose of 0.4 mg in 5 mL intravenously, followed by flush with normal saline. Subsequently the stress dose of 30.8 millicuries of technetium 99 sestamibi was injected intravenously. As per protocol stress gated images were obtained. NUCLEAR INTERPRETATION: Both raw and processed data were used for interpretation. Visual, qualitative, computer-generated quantitative data was used. There was good myocardial uptake of technetium compound. Motion artifact and soft tissue attenuations were noted. Increased visceral uptake was noted. No definitive areas of transient perfusion defect noted, No definitive areas of fixed perfusion defect or scars noted. EKG gated imaging showed LV EF at 26 %, rest and stress gated EF similar visually. T. I D. ratio was 1.13. Lung heart ratio noted to be within normal limits 0.30. No significant extracardiac and abnormal radiotracer activities were noted. RV free wall uptake was noted to be WNL. IMPRESSION: Also refer to comments under nuclear interpretation. Also test results needs to be interpreted in the context of pretest probability. 1. No definitive areas of transient perfusion defect noted. 2. There is no definitive scintigraphic evidence of myocardial infarction/scar. 3. EKG gated imaging shows left ventricular ejection fraction of approx. 26 %. Possibly falsely low EF but correlate with echocardiogram derived LVEF. 4. Clinical correlation requested as occasionally single vessel disease or balanced ischemia could be missed. In approximately 10% of the cases Lexiscan may not cause adequate vasodilatory stress. RECOMMENDATIONS: Aggressive risk factor modification and medical management. Further evaluation may be needed if continued symptoms or other high risk indicators are noted on clinical evaluation. Close cardiology follow-up is also recommended. Clinical correlation with echocardiogram derived ejection fraction. Inability to exercise by itself can lead to increased cardiovascular event risks. Consider cardiology consultation and or follow-up if clinically indicated. I am available for cardiology evaluation and consultation if requested by the first officer and flight instructor, unless patient already has a cigar tobacco rehandler. PARAM
--- NOTE | 2017-11-16 14:25 | PDOC PROGRESS REPORT ---
Subjective Progress Note for:: 11/16/17 Subjective:: Patient's nurse describes delirium overnight with visual hallucinations. Patient has just returned from Cardiolite testing, patient awake and alert and hypomanic, quite talkative in no acute distress. Patient denies pain. Reason For Visit: CHEST PAIN,PAF Physical Exam Vital Signs: Temp Pulse Resp BP Pulse Ox 97.5 F 98 18 142/74 H 96 11/16/17 07:26 11/16/17 07:26 11/16/17 07:26 11/16/17 07:26 11/16/17 07:26 Intake & Output 11/15/17 11/16/17 11/17/17 11:59 11:59 11:59 Intake Total 775 505 Balance 775 505 Weight 56.3 kg 56.3 kg General appearance: PRESENT: cooperative, mild distress, other - Hypomanic Head exam: PRESENT: atraumatic, normocephalic Eye exam: PRESENT: conjunctiva pink, EOMI, PERRLA. ABSENT: scleral icterus Ear exam: PRESENT: normal external ear exam Mouth exam: PRESENT: moist, tongue midline Neck exam: ABSENT: carotid bruit, JVD, lymphadenopathy, thyromegaly Respiratory exam: PRESENT: clear to auscultation shay. ABSENT: rales, rhonchi, wheezes Cardiovascular exam: PRESENT: RRR, tachycardia. ABSENT: diastolic murmur, rubs , systolic murmur Vascular exam: PRESENT: normal capillary refill GI/Abdominal exam: PRESENT: normal bowel sounds, soft. ABSENT: distended, guarding, mass, organolmegaly, rebound, tenderness Rectal exam: PRESENT: deferred Extremities exam: PRESENT: full ROM. ABSENT: calf tenderness, clubbing, pedal edema Neurological exam: PRESENT: alert, altered, awake, oriented to person, oriented to place, oriented to time, CN II-XII grossly intact. ABSENT: motor sensory deficit Psychiatric exam: PRESENT: manic Focused psych exam: PRESENT: euphoric, restlessness Skin exam: PRESENT: dry, intact, warm. ABSENT: cyanosis, rash Results Laboratory Results: 11/15/17 04:20 11/15/17 04:20 11/14/17 11/14/17 11/15/17 16:53 22:11 04:20 Troponin I < 0.012 < 0.012 < 0.012 Impressions: Chest X-Ray 11/14/17 13:18 IMPRESSION: NO ACUTE RADIOGRAPHIC FINDING IN THE CHEST. 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 Trial trazodone - Time Time Spent with patient: 25-34 minutes - Inpatient Certification Medical Necessity: Need Close Monitoring Due to Risk of Patient Decompensation
[2017-11-16] MEDS ORDERED: (PENDING PHARMACY ID) (Sertraline Hcl [Zoloft] 50 MG) PO SCH (14:45)
--- NOTE | 2017-11-16 14:59 | PDOC PROGRESS REPORT ---
Subjective Reason For Visit: CHEST PAIN,PAF Physical Exam Vital Signs: Temp Pulse Resp BP Pulse Ox 97.5 F 98 18 142/74 H 96 11/16/17 07:26 11/16/17 07:26 11/16/17 07:26 11/16/17 07:26 11/16/17 07:26 Intake & Output 11/15/17 11/16/17 11/17/17 11:59 11:59 11:59 Intake Total 775 505 Balance 775 505 Weight 56.3 kg 56.3 kg Results Laboratory Results: 11/15/17 04:20 11/15/17 04:20 11/14/17 11/14/17 11/15/17 16:53 22:11 04:20 Troponin I < 0.012 < 0.012 < 0.012 Impressions: Chest X-Ray 11/14/17 13:18 IMPRESSION: NO ACUTE RADIOGRAPHIC FINDING IN THE CHEST. 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 Trial trazodone continue Zoloft Patient's pharmacy confirms Zoloft and atenolol prescription not filled leading to the most likely explanation of decompensated atrial fibrillation and Depression (3) Chest pain Qualifiers: Chest pain type: unspecified Qualified Code(s): R07.9 - Chest pain, unspecified Is this a current diagnosis for this admission?: Yes Plan: Cardiolite stress test and cardiac workup is negative. Continue Plavix, aspirin and increased Coreg dose. - Time Time Spent with patient: 15-24 minutes
[2017-11-16] MEDS ORDERED: SERTRALINE HCL 50 MG TABLET PO ONE (15:30)
[2017-11-16] MEDS ORDERED: REGADENOSON INJ 0.4 MG/5 ML DISP.SYRIN IV ONE (15:50)
[2017-11-16] MEDS ORDERED: AMINOPHYLLINE INJ/PF 250 MG/10 ML SDV IV ONE (15:50)
[2017-11-16] MEDS: NITROGLYCERIN 2.5 MG (0.1 MG/HR) PATCH.TD24 TD SCH (17:58)
[2017-11-16] MEDS: TRAZODONE HCL 50 MG TABLET PO SCH (17:59)
--- NOTE | 2017-11-16 20:18 | PDOC PROGRESS REPORT ---
Subjective Progress Note for:: 11/16/17 Subjective:: Pt is denying any chest arm or neck discomfort. Patient denying any PND, orthopnea. Patient denied any sustained palpitations, dizziness, syncope, near syncope. Patient denying any fever chills. Patient denying any other significant discomfort. Patient is maintaining sinus rhythm. Telemetry strips were reviewed. No atrial fibrillation noted but patient has APCs and VPCs. Patient today underwent nuclear stress test without any complications. Review of systems: Rest review of systems negative. Medications: Medications have been reviewed. Reason For Visit: CHEST PAIN,PAF Physical Exam Vital Signs: Temp Pulse Resp BP Pulse Ox 98.3 F 96 20 141/78 H 99 11/16/17 16:00 11/16/17 16:00 11/16/17 16:00 11/16/17 16:00 11/16/17 16:00 Intake & Output 11/15/17 11/16/17 11/17/17 06:59 06:59 06:59 Intake Total 775 505 540 Balance 775 505 540 Weight 56.3 kg 56.3 kg Exam: GENERAL: well-nourished and in no acute distress. Alert and oriented x3 HEAD: Atraumatic, normocephalic. EYES: Pupils equal round and reactive to light, extraocular movements intact, sclera anicteric, conjunctiva are normal. ENT: TMs normal, nares patent, oropharynx clear without exudates. Moist mucous membranes. No oral ulcerations or bleeding gums noted NECK: supple without lymphadenopathy. Trachea is central. No cervical or axillary lymphadenopathy noted. Carotids are 2+, JVD WNL LUNGS: Respiration seems nonlabored, no significant accessory muscle action noted. Breath sounds clear to auscultation bilaterally and equal noted. No wheezes rales or rhonchi noted. No significant dullness noted on percussion. CHEST: Palpation of the chest wall shows no significant chest wall tenderness. No other significant abnormalities noted. HEART: [place] [facility], No PSH, 1/6 SHAYY aortic area, 1/6 herman systolic murmur mitral area, no rubs, no gallops. ABDOMEN: Soft, no significant tenderness appreciated, normoactive bowel sounds. No guarding, no rebound. No rigidity noted . No masses appreciated. EXTREMITIES: Pedal pulses are 1-2+, no calf tenderness noted. No clubbing or cyanosis. Negative pedal edema noted NEUROLOGICAL: Focused neurological exam showed no significant neurologic deficit. Normal speech, no focal weakness appreciated. PSYCH: Normal mood, normal affect. I am told that patient has been noted to be wandering on the floor. SKIN: No significant ecchymosis, skin is noted to be warm. MUSCULOSKELETAL EXAM: No significant acute joint swelling noted. Results Laboratory Results: 11/15/17 04:20 11/15/17 04:20 11/14/17 11/14/17 11/15/17 16:53 22:11 04:20 Troponin I < 0.012 < 0.012 < 0.012 EKG Comments: Telemetry strips shows sinus rhythm with occasional APCs and VPCs. Impressions: Chest X-Ray 11/14/17 13:18 IMPRESSION: NO ACUTE RADIOGRAPHIC FINDING IN THE CHEST. Assessment & Plan - Diagnosis (1) Atrial fibrillation Qualifiers: Atrial fibrillation type: paroxysmal Qualified Code(s): I48.0 - Paroxysmal atrial fibrillation Is this a current diagnosis for this admission?: Yes (2) Chest pain Qualifiers: Chest pain type: unspecified Qualified Code(s): R07.9 - Chest pain, unspecified Is this a current diagnosis for this admission?: Yes (3) Hyperlipidemia Is this a current diagnosis for this admission?: Yes (4) Hypertension Qualifiers: Hypertension type: essential hypertension Qualified Code(s): I10 - Essential (primary) hypertension Is this a current diagnosis for this admission?: Yes (5) Hypotension Qualifiers: Hypotension type: unspecified hypotension type Qualified Code(s): I95.9 - Hypotension, unspecified Is this a current diagnosis for this admission?: Yes (6) S/P MVR (mitral valve repair) Is this a current diagnosis for this admission?: Yes - Notes Notes: Atrial fibrillation paroxysmal: Patient converted spontaneously to sinus rhythm. So far there has been no recurrences. Currently on aspirin and Plavix therapy. Patient does have history of mitral valve repair. Patient would benefit from chronic anticoagulation if there are no contraindication. However this decision may be best left to patient's floor refinisher and nailhead setter. If Eliquis is used, the correct dose would be 2.5 mg p.o. twice daily. In the absence of mechanical mitral valve and significant mitral stenosis, Eliquis should be adequate. Will discuss this further with the patient. At this point agree either continuing Cardizem/beta-blockers for both rate control should patient go back into atrial fibrillation. I have discussed chronic anticoagulation therapy with the patient. Patient does not want to start chronic anticoagulation at this point but will discuss this with her primary floor refinisher. At this point therefore continue aspirin and Plavix. Chest pain: Most likely precipitated by atrial fibrillation. Patient has significant peripheral vascular disease. Therefore would be a candidate for nuclear stress test. Nuclear stress test was performed and was negative for pharmacologic stress-induced ischemia. These results were discussed in detail. Dyslipidemia: Recommend high potency statin therapy. Hypotension: Resolved by normal saline bolus. Patient was possibly volume depleted. Atrial fibrillation could have contributed to it. This is no longer an active problem. Hypertension: Resume patient's home antihypertensive once blood pressure has stabilized. LUNA inhibitor/ARB preferred in presence of PVD and possible underlying CAD. Status post mitral valve repair: 2D echocardiogram reviewed. It shows residual mitral stenosis in a previously repaired valve, which is felt to be mild to moderate. - Time Time Spent with patient: Patient was seen multiple times. Total time exceeds 40 minutes. In the morning nuclear stress test procedure, risks benefits, alternatives were discussed. Patient seen during the stress test. Patient also seen after stress test when results were discussed with the patient in detail. Patient's questions were answered. Nuclear stress test results were discussed with the patient. Patient was informed that no definitive evidence of pharmacologic stress- induced ischemia noted. No definite fixed defects were noted. Patient informed that occasionally significant single vessel disease or balanced ischemia could be missed. However based on the current study results, would recommend aggressive risk factor modification and medical therapy. It may also be worthwhile to consider evaluation or empiric management of other causes of chest pain. Should no other cause be found and if persistent in having chest pain, then cardiac catheterization should be considered. Right now, recommendations are for aggressive risk factor modification and medical management. Time with patient: Greater than 35 minutes - CODE STATUS was discussed, patient remains full code. Surrogate decision-maker unchanged. Multiple medical problems were addressed. More than 50% of the time spent coordinating care, discussing management plans with involved caregivers. Management plans discussed with involved personnels. Medical decision making was of moderate to high complexity, patient's has multiple comorbidities.
[2017-11-16] MEDS: SIMVASTATIN 10 MG TABLET PO SCH (20:23)
[2017-11-17] MEDS: TRAZODONE HCL 50 MG TABLET PO SCH ×2 (06:27→17:06)
[2017-11-17] MEDS: METOPROLOL SUCCINATE 25 MG TAB.SR.24H PO SCH ×3 (06:27→17:06)
[2017-11-17] MEDS: DOCUSATE SODIUM 100 MG CAPSULE PO SCH (09:45)
[2017-11-17] MEDS: LISINOPRIL 10 MG TABLET PO SCH (09:45)
[2017-11-17] MEDS: FAMOTIDINE 20 MG TABLET PO SCH ×2 (09:45→21:51)
[2017-11-17] MEDS: ASPIRIN 81 MG TABLET, ENT COATED PO SCH (09:45)
[2017-11-17] MEDS: CLOPIDOGREL BISULFATE 75 MG TABLET PO SCH (09:45)
[2017-11-17] MEDS ORDERED: SERTRALINE HCL 50 MG TABLET PO SCH (10:00)
--- NOTE | 2017-11-17 13:56 | PDOC PROGRESS REPORT ---
Subjective Progress Note for:: 11/17/17 Subjective:: Pt is denying any chest arm or neck discomfort. Patient denying any PND, orthopnea. Patient denied any sustained palpitations, dizziness, syncope, near syncope. Patient denying any fever chills. Patient denying any other significant discomfort. Patient is maintaining sinus rhythm. Telemetry strips were reviewed. No atrial fibrillation noted but patient has APCs and VPCs. Nuclear stress test results were again reviewed with the patient. Review of systems: Rest review of systems negative. Medications: Medications have been reviewed. Reason For Visit: CHEST PAIN,PAF Physical Exam Vital Signs: Temp Pulse Resp BP Pulse Ox 98.2 F 95 18 115/53 L 93 11/17/17 08:00 11/17/17 08:00 11/17/17 08:00 11/17/17 08:00 11/17/17 08:00 Intake & Output 11/16/17 11/17/17 11/18/17 06:59 06:59 06:59 Intake Total 505 540 Balance 505 540 Weight 56.3 kg 57.2 kg Exam: GENERAL: well-nourished and in no acute distress. Alert and oriented x3. Patient did seem somewhat lethargic. HEAD: Atraumatic, normocephalic. EYES: Pupils equal round and reactive to light, extraocular movements intact, sclera anicteric, conjunctiva are normal. ENT: TMs normal, nares patent, oropharynx clear without exudates. Moist mucous membranes. No oral ulcerations or bleeding gums noted NECK: supple without lymphadenopathy. Trachea is central. No cervical or axillary lymphadenopathy noted. Carotids are 2+, JVD WNL LUNGS: Respiration seems nonlabored, no significant accessory muscle action noted. Breath sounds clear to auscultation bilaterally and equal noted. No wheezes rales or rhonchi noted. No significant dullness noted on percussion. CHEST: Palpation of the chest wall shows no significant chest wall tenderness. No other significant abnormalities noted. HEART: [place] [facility], No PSH, 1/6 SHAYY aortic area, 1/6 herman systolic murmur mitral area, no rubs, no gallops. ABDOMEN: Soft, no significant tenderness appreciated, normoactive bowel sounds. No guarding, no rebound. No rigidity noted . No masses appreciated. EXTREMITIES: Pedal pulses are 1-2+, no calf tenderness noted. No clubbing or cyanosis.trace to 1+ pedal edema noted NEUROLOGICAL: Focused neurological exam showed no significant neurologic deficit. Normal speech, no focal weakness appreciated. PSYCH: Normal mood, normal affect. SKIN: No significant ecchymosis, skin is noted to be warm. MUSCULOSKELETAL EXAM: No significant acute joint swelling noted. Results Laboratory Results: 11/15/17 04:20 11/15/17 04:20 11/14/17 11/14/17 11/15/17 16:53 22:11 04:20 Troponin I < 0.012 < 0.012 < 0.012 Impressions: Chest X-Ray 11/14/17 13:18 IMPRESSION: NO ACUTE RADIOGRAPHIC FINDING IN THE CHEST. Assessment & Plan - Diagnosis (1) Atrial fibrillation Qualifiers: Atrial fibrillation type: paroxysmal Qualified Code(s): I48.0 - Paroxysmal atrial fibrillation Is this a current diagnosis for this admission?: Yes (2) Chest pain Qualifiers: Chest pain type: unspecified Qualified Code(s): R07.9 - Chest pain, unspecified Is this a current diagnosis for this admission?: Yes (3) Hyperlipidemia Is this a current diagnosis for this admission?: Yes (4) Hypertension Qualifiers: Hypertension type: essential hypertension Qualified Code(s): I10 - Essential (primary) hypertension Is this a current diagnosis for this admission?: Yes (5) Hypotension Qualifiers: Hypotension type: unspecified hypotension type Qualified Code(s): I95.9 - Hypotension, unspecified Is this a current diagnosis for this admission?: Yes (6) S/P MVR (mitral valve repair) Is this a current diagnosis for this admission?: Yes - Notes Notes: Atrial fibrillation paroxysmal: Patient converted spontaneously to sinus rhythm. So far there has been no recurrences. Currently on aspirin and Plavix therapy. Patient does have history of mitral valve repair. Patient would benefit from chronic anticoagulation if there are no contraindication. Patient does not want to start chronic anticoagulation at this point but will discuss this with her primary wet press tender on discharge regarding this. At this point therefore continue aspirin and Plavix. Chest pain: Most likely precipitated by atrial fibrillation. Patient has significant peripheral vascular disease. Therefore would be a candidate for nuclear stress test. Nuclear stress test was performed and was negative for pharmacologic stress-induced ischemia. These results were discussed in detail. Dyslipidemia: Recommend high potency statin therapy. Hypotension: Resolved by normal saline bolus. Patient was possibly volume depleted. Atrial fibrillation could have contributed to it. This is no longer an active problem. Hypertension: Resume patient's home antihypertensive once blood pressure has stabilized. LUNA inhibitor/ARB preferred in presence of PVD and possible underlying CAD. Status post mitral valve repair: 2D echocardiogram reviewed. It shows residual mitral stenosis in a previously repaired valve, which is felt to be mild to moderate. Nuclear stress test results again were reviewed with the patient. At this point patient seems relatively stable. Will sign off. Please reconsult if needed. - Time Time with patient: 15-25 minutes - CODE STATUS was discussed, patient remains full code. Surrogate decision-maker unchanged. Multiple medical problems were addressed. More than 50% of the time spent coordinating care, discussing management plans with involved caregivers. Management plans discussed with involved personnels. Medical decision making was of moderate to high complexity , patient's has multiple comorbidities. Medications reviewed and adjusted accordingly: Yes
--- NOTE | 2017-11-17 16:16 | PDOC PROGRESS REPORT ---
Subjective Subjective:: Patient's nurse describes less delirium overnight with visual hallucinations. patient awake and alert and hypomanic, quite talkative in no acute distress. Patient denies pain. Patient reluctant to interact with . expresses anger and hostility towards staff. Reason For Visit: CHEST PAIN,PAF Physical Exam Vital Signs: Temp Pulse Resp BP Pulse Ox 98.5 F 101 H 18 132/54 H 93 11/17/17 12:00 11/17/17 14:00 11/17/17 12:00 11/17/17 12:00 11/17/17 12:00 Intake & Output 11/16/17 11/17/17 11/18/17 11:59 11:59 11:59 Intake Total 505 540 Balance 505 540 Weight 56.3 kg 57.2 kg General appearance: PRESENT: no acute distress, cooperative, disheveled, well- developed, well-nourished Head exam: PRESENT: atraumatic, normocephalic Eye exam: PRESENT: conjunctiva pink, EOMI, PERRLA. ABSENT: scleral icterus Ear exam: PRESENT: normal external ear exam Mouth exam: PRESENT: moist, tongue midline Neck exam: ABSENT: carotid bruit, JVD, lymphadenopathy, thyromegaly Respiratory exam: PRESENT: clear to auscultation shay. ABSENT: rales, rhonchi, wheezes Cardiovascular exam: PRESENT: RRR. ABSENT: diastolic murmur, rubs, systolic murmur Pulses: PRESENT: normal dorsalis pedis pul Vascular exam: PRESENT: normal capillary refill GI/Abdominal exam: PRESENT: normal bowel sounds, soft. ABSENT: distended, guarding, mass, organolmegaly, rebound, tenderness Rectal exam: PRESENT: deferred Extremities exam: PRESENT: full ROM. ABSENT: calf tenderness, clubbing, pedal edema Neurological exam: PRESENT: alert, altered, awake, oriented to person, CN II- XII grossly intact. ABSENT: motor sensory deficit Psychiatric exam: PRESENT: manic. ABSENT: homicidal ideation, suicidal ideation Focused psych exam: PRESENT: delusional, euphoric Skin exam: PRESENT: dry, intact, warm. ABSENT: cyanosis, rash Results Laboratory Results: 11/15/17 04:20 11/15/17 04:20 11/14/17 11/14/17 11/15/17 16:53 22:11 04:20 Troponin I < 0.012 < 0.012 < 0.012 Impressions: Chest X-Ray 11/14/17 13:18 IMPRESSION: NO ACUTE RADIOGRAPHIC FINDING IN THE CHEST. Assessment & Plan - Diagnosis (1) Atrial fibrillation Qualifiers: Atrial fibrillation type: paroxysmal Qualified Code(s): I48.0 - Paroxysmal atrial fibrillation Is this a current diagnosis for this admission?: Yes Plan: Rate controlled on Coreg 25 every 12 hours, pharmacy reveals patient not filling Coreg prescription. 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 Trial trazodone continue Zoloft (3) Chest pain Qualifiers: Chest pain type: unspecified Qualified Code(s): R07.9 - Chest pain, unspecified Is this a current diagnosis for this admission?: Yes Plan: Cardiolite stress test and cardiac workup is negative. Continue Plavix, aspirin and increased Coreg dose. - Time Time Spent with patient: 15-24 minutes
[2017-11-17] MEDS: NITROGLYCERIN 2.5 MG (0.1 MG/HR) PATCH.TD24 TD SCH (17:06)
[2017-11-17] MEDS: ATORVASTATIN CALCIUM 40 MG TABLET PO SCH (21:51)
[2017-11-18] MEDS: TRAZODONE HCL 50 MG TABLET PO SCH ×2 (06:08→19:00)
[2017-11-18] MEDS: METOPROLOL SUCCINATE 25 MG TAB.SR.24H PO SCH ×2 (06:09→19:01)
[2017-11-18] MEDS: SERTRALINE HCL 50 MG TABLET PO SCH (10:21)
[2017-11-18] MEDS: CLOPIDOGREL BISULFATE 75 MG TABLET PO SCH (10:21)
[2017-11-18] MEDS: LISINOPRIL 10 MG TABLET PO SCH (10:21)
[2017-11-18] MEDS: FAMOTIDINE 20 MG TABLET PO SCH ×2 (10:21→22:10)
[2017-11-18] MEDS: DOCUSATE SODIUM 100 MG CAPSULE PO SCH (10:22)
[2017-11-18] MEDS: ASPIRIN 81 MG TABLET, ENT COATED PO SCH (10:22)
[2017-11-18] MEDS ORDERED: ACETAMINOPHEN 325 MG TABLET PO PRN (11:49)
[2017-11-18] MEDS ORDERED: KETOROLAC TROMETHAMINE INJ/PF 30 MG/1 ML SDV IV ONE (12:58)
[2017-11-18] MEDS ORDERED: LIDOCAINE 5% (700 MG) TRANSDERMAL ADH..PATCH TP ONE (14:00)
--- NOTE | 2017-11-18 18:26 | PDOC PROGRESS REPORT ---
Subjective Progress Note for:: 11/18/17 Reason For Visit: 82-year-old female admitted for chest pain and rapid atrial fibrillation. She was started on Coreg 25 mg twice daily. Apparently she was not feeling it as prescribed. Her rapid A. fib resolved. She underwent a stress test which showed no ischemia or infarction. Her hospital stay was complicated by delirium , which also resolved. Physical Exam Vital Signs: Temp Pulse Resp BP Pulse Ox 97.8 F 91 18 123/80 96 11/18/17 12:00 11/18/17 12:00 11/18/17 12:00 11/18/17 12:00 11/18/17 12:00 Intake & Output 11/17/17 11/18/17 11/19/17 06:59 06:59 06:59 Intake Total 540 1705 Balance 540 1705 Weight 57.2 kg 57.3 kg General appearance: PRESENT: no acute distress Head exam: PRESENT: atraumatic, normocephalic Eye exam: PRESENT: EOMI, PERRLA Respiratory exam: PRESENT: clear to auscultation shay. ABSENT: rales, rhonchi, wheezes Cardiovascular exam: PRESENT: irregular rhythm. ABSENT: tachycardia GI/Abdominal exam: PRESENT: normal bowel sounds, soft. ABSENT: distended, guarding, mass, organolmegaly, rebound, tenderness Musculoskeletal exam: PRESENT: ambulatory Neurological exam: PRESENT: alert, awake, oriented to person, oriented to place , oriented to time, oriented to situation, CN II-XII grossly intact. ABSENT: motor sensory deficit Skin exam: PRESENT: dry, intact, warm. ABSENT: cyanosis, rash Results Laboratory Results: 11/15/17 04:20 11/15/17 04:20 11/14/17 11/14/17 11/15/17 16:53 22:11 04:20 Troponin I < 0.012 < 0.012 < 0.012 Impressions: Chest X-Ray 11/14/17 13:18 IMPRESSION: NO ACUTE RADIOGRAPHIC FINDING IN THE CHEST. Assessment & Plan - Diagnosis (1) Atrial fibrillation Qualifiers: Atrial fibrillation type: paroxysmal Qualified Code(s): I48.0 - Paroxysmal atrial fibrillation Is this a current diagnosis for this admission?: Yes Plan: Rate is controlled on Coreg 25 mg every 12 hours. (2) Chest pain Qualifiers: Chest pain type: unspecified Qualified Code(s): R07.9 - Chest pain, unspecified Is this a current diagnosis for this admission?: Yes Plan: Workup was unrevealing. (3) Delirium Is this a current diagnosis for this admission?: Yes Plan: Resolved. (4) Hypertension Qualifiers: Hypertension type: essential hypertension Qualified Code(s): I10 - Essential (primary) hypertension Is this a current diagnosis for this admission?: Yes Plan: BP okay. Continue current meds. - Time Time Spent with patient: 15-24 minutes Medications reviewed and adjusted accordingly: Yes Anticipated discharge: Home Within: within 24 hours - Inpatient Certification Based on my medical assessment, after consideration of the patient's comorbidities, presenting symptoms, or acuity I expect that the services needed warrant INPATIENT care.: Yes I certify that my determination is in accordance with my understanding of Medicare's requirements for reasonable and necessary INPATIENT services [42 CFR 412.3e].: Yes Medical Necessity: Need Close Monitoring Due to Risk of Patient Decompensation
[2017-11-18] MEDS ORDERED: KETOROLAC TROMETHAMINE INJ/PF 30 MG/1 ML SDV IV PRN (18:27)
[2017-11-18] MEDS: NITROGLYCERIN 2.5 MG (0.1 MG/HR) PATCH.TD24 TD SCH (19:03)
[2017-11-18] MEDS: ATORVASTATIN CALCIUM 40 MG TABLET PO SCH (22:10)
[2017-11-19] MEDS: TRAZODONE HCL 50 MG TABLET PO SCH (05:55)
[2017-11-19] MEDS: METOPROLOL SUCCINATE 25 MG TAB.SR.24H PO SCH (05:55)
[2017-11-19 08:30] VITALS: BP 129/51
[2017-11-19] MEDS ORDERED: LIDOCAINE 5% (700 MG) TRANSDERMAL ADH..PATCH TP SCH (10:00)
[2017-11-19] MEDS: ASPIRIN 81 MG TABLET, ENT COATED PO SCH (10:23)
[2017-11-19] MEDS: CLOPIDOGREL BISULFATE 75 MG TABLET PO SCH (10:23)
[2017-11-19] MEDS: DOCUSATE SODIUM 100 MG CAPSULE PO SCH (10:24)
[2017-11-19] MEDS: FAMOTIDINE 20 MG TABLET PO SCH (10:24)
[2017-11-19] MEDS: LISINOPRIL 10 MG TABLET PO SCH (10:25)
[2017-11-19] MEDS: SERTRALINE HCL 50 MG TABLET PO SCH (10:25)
== END 2017-11-19 11:35 | disposition home health service (06) ==
LOC: ER 12:50 → EH 15:33 → INTOOBSV 15:33 → 5 16:41
PROVIDERS: ADMIT Family Medicine; ATTEND Family Medicine
DX: R07.9 Chest pain, unspecified (principal); I10 Essential (primary) hypertension; E78.4 Other hyperlipidemia; I25.10 Atherosclerotic heart disease of native coronary artery without angina pectoris; I25.2 Old myocardial infarction; E03.9 Hypothyroidism, unspecified; I48.0 Paroxysmal atrial fibrillation; F32.9 Major depressive disorder, single episode, unspecified; I95.9 Hypotension, unspecified
CPT/HCPCS: 93005 ×3; 99291; 96360; 36415 ×2; 82553; 82550; 83735; 84443; 85025 ×2; 80048; 80053; 84484 ×2; 80061; 93306; 93017; 71045; 78452; 93010 ×3; G0378 ×6; A9500; J2785; A9270 ×44; J1885; J3490 ×11; J3475; J7030; J0280; Q9969

== ENCOUNTER 2018-01-13 14:43 | Emergency (ER) | payer MEDICARE, OTHER ==
[2018-01-13] MEDS ORDERED: PANTOPRAZOLE SODIUM 40 MG VIAL IV ONE (16:32)
[2018-01-13] MEDS ORDERED: NORMAL SALINE 1000 ML 1,000 ML IV ONE (16:32)
--- NOTE | 2018-01-13 16:32 | ER Document Report ---
ED General - General Chief Complaint: Rectal Bleeding Stated Complaint: RECTAL BLEEDING Time Seen by Provider: 01/13/18 16:01 Mode of Arrival: Ambulatory Information source: Patient Notes: 82-year-old female presents with complaints of rectal bleeding. Patient notes that she was recently placed on Xarelto after a heart cath one half weeks ago and [facility]. Patient denies any chest pain admits to some abdominal pain denies any history of rectal bleeding recently but did have some bleeding when she was on Coumadin in the past TRAVEL OUTSIDE OF THE [place] IN LAST 30 DAYS: No - HPI Onset: Just prior to arrival Onset/Duration: Sudden Quality of pain: Cramping Severity: Mild Pain Level: 1 Associated symptoms: Other Exacerbated by: Denies Relieved by: Denies Similar symptoms previously: Yes Recently seen / treated by doctor: Yes Notes: Patient last took Xarelto last night - Related Data Allergies/Adverse Reactions: No Known Allergies Allergy (Verified 01/13/18 14:45) Past Medical History - Social History Smoking Status: Never Smoker Cigarette use (# per day): No Chew tobacco use (# tins/day): No Smoking Education Provided: No Family History: Hypertension - Past Medical History Cardiac Medical History: Reports: Hx Heart Attack, Hx Hypertension - cardiovascular disease/ bp medications Denies: Hx Pulmonary Embolism, Hx Heart Murmur Pulmonary Medical History: Denies: Hx Asthma, Hx COPD Neurological Medical History: Denies: Hx Cerebrovascular Accident, Hx Seizures Endocrine Medical History: Reports: Hx Hypothyroidism Renal/ Medical History: Denies: Hx Peritoneal Dialysis GI Medical History: Denies: Hx Hepatitis, Hx Hiatal Hernia, Hx Ulcer Psychiatric Medical History: Reports: Hx Depression Infectious Medical History: Denies: Hx Hepatitis Past Surgical History: Reports: Hx Cardiac Surgery - mitral valve repair,, Hx Cholecystectomy, Hx Hysterectomy, Hx Open Heart Surgery - at least 15 yrs ago ( approx 1984), Hx Valve Replacement - Mitral valve repair. Denies: Hx Mastectomy , Hx Pacemaker. Comment Only: Hx Vascular Surgery - endarterectomy, subclavian bypass, fem fem bypass Review of Systems - Review of Systems Notes: REVIEW OF SYSTEMS: CONSTITUTIONAL : Denies fever, chills, or sweats. Denies recent illness. EENT: Denies eye, ear, throat, or mouth pain or symptoms. Denies nasal or sinus congestion or discharge. Denies throat, tongue, or mouth swelling or difficulty swallowing. CARDIOVASCULAR: Denies chest pain. Denies palpitations or racing or irregular heart beat. Denies ankle edema. RESPIRATORY: Denies cough, cold, or chest congestion. Denies shortness of breath, difficulty breathing, or wheezing. GASTROINTESTINAL: Admits to bright red blood per rectum GENITOURINARY: Denies difficulty urinating, painful urination, burning, frequency, blood in urine, or discharge. FEMALE GENITOURINARY: Denies vaginal bleeding, heavy or abnormal periods, irregular periods. Denies vaginal discharge or odor. MUSCULOSKELETAL: Denies back or neck pain or stiffness. Denies joint pain or swelling. SKIN: Denies rash, lesions or sores. HEMATOLOGIC : Denies easy bruising or bleeding. LYMPHATIC: Denies swollen, enlarged glands. NEUROLOGICAL: Denies confusion or altered mental status. Denies passing out or loss of consciousness. Denies dizziness or lightheadedness. Denies headache. Denies weakness or paralysis or loss of use of either side. Denies problems with gait or speech. Denies sensory loss, numbness, or tingling. Denies seizures. PSYCHIATRIC: Denies anxiety or stress. Denies depression, suicidal ideation, or homicidal ideation. ALL OTHER SYSTEMS REVIEWED AND NEGATIVE. PHYSICAL EXAMINATION: GENERAL: Well-appearing, well-nourished and in no acute distress. HEAD: Atraumatic, normocephalic. EYES: Pupils equal round and reactive to light, extraocular movements intact, conjunctiva are normal. ENT: Nares patent, oropharynx clear without exudates. Moist mucous membranes. NECK: Normal range of motion, supple without lymphadenopathy LUNGS: Breath sounds clear to auscultation bilaterally and equal. No wheezes rales or rhonchi. HEART: Regular rate and rhythm without murmurs ABDOMEN: Soft, nontender, nondistended abdomen. No guarding, no rebound. No masses appreciated. Large amount of bright red blood per rectum Female : deferred Musculoskeletal: Normal range of motion, no pitting or edema. No cyanosis. NEUROLOGICAL: Cranial nerves grossly intact. Normal speech, normal gait. Normal sensory, motor exams PSYCH: Normal mood, normal affect. SKIN: Warm, Dry, normal turgor, no rashes or lesions noted. Dictation was performed using [employer] voice recognition software Physical Exam - Vital signs Vitals: Temp Pulse Resp BP Pulse Ox 97.3 F 97 16 111/79 96 05/18/18 14:56 01/13/18 14:56 01/13/18 14:56 01/13/18 14:56 01/13/18 14:56 Course - Re-evaluation Re-evalutation: Patient's presentation is most consistent with a acute GI bleed on Xarelto, lab work vital signs however are stable IV fluids started Protonix started 01/13/18 16:33 formerly [facility] paged 01/13/18 19:50 Patient has been reevaluated stable at this time she has been accepted for transfer and is awaiting transport - Vital Signs Vital signs: Temp Pulse Resp BP Pulse Ox 97.3 F 97 15 103/51 L 95 01/13/18 14:56 01/13/18 14:56 01/13/18 18:37 01/13/18 16:00 01/13/18 16:01 - Laboratory Result Diagrams: 01/13/18 15:35 01/13/18 15:35 Laboratory results interpreted by me: 01/13/18 01/13/18 01/13/18 15:35 15:35 15:35 Hgb 11.1 L Hct 34.7 L RDW 15.8 H PT 16.2 H Chloride 108 H BUN 28 H Discharge - Discharge 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
[2018-01-13 16:37] LABS: ABSOLUTE BASOPHILS # (AUTO) 0.1 10^3/uL (0.0-0.2); ABSOLUTE EOSINOPHILS # (AUTO) 0.2 10^3/uL (0.0-0.6); ABSOLUTE LYMPHOCYTES (AUTO) 1.4 10^3/uL (0.5-4.7); ABSOLUTE MONOCYTES (AUTO) 0.6 10^3/uL (0.1-1.4); ABSOLUTE NEUT (AUTO) 4.4 10^3/uL (1.7-8.2); EOSINOPHILS % (AUTO) 2.3 % (0-6); HEMATOCRIT 34.7 % (36.0-47.0); HEMOGLOBIN 11.1 g/dL (12.0-15.5); LYMPHOCYTES % (AUTO) 21.4 % (13-45); MEAN CORPUSCULAR HEMOGLOBIN 27.7 pg (27.0-33.4); MEAN CORPUSCULAR HGB CONC 32.1 g/dL (32.0-36.0); MEAN CORPUSCULAR VOLUME 86 fl (80-97); PLATELET COUNT 231 10^3/uL (150-450); RED BLOOD COUNT 4.02 10^6/uL (3.72-5.28); RED CELL DISTRIBUTION WIDTH 15.8 % (11.5-14.0); SEGMENTED NEUTROPHILS % (AUTO) 66.3 % (42-78); TOTAL CELLS COUNTED % (AUTO) 100 %; WHITE BLOOD COUNT 6.6 10^3/uL (4.0-10.5)
[2018-01-13] MEDS ORDERED: PANTOPRAZOLE SODIUM 40 MG VIAL IV PRN (16:37)
[2018-01-13 16:39] LABS: ALANINE AMINOTRANSFERASE 22 U/L (9-52); ALBUMIN 4.2 g/dL (3.5-5.0); ALKALINE PHOSPHATASE 96 U/L (38-126); ANION GAP 11 (5-19); ASPARTATE AMINO TRANSFERASE 22 U/L (14-36); BILIRUBIN,DIRECT 0.3 mg/dL (0.0-0.4); BILIRUBIN,TOTAL 0.3 mg/dL (0.2-1.3); BLOOD UREA NITROGEN 28 mg/dL (7-20); CALCIUM 9.6 mg/dL (8.4-10.2); CARBON DIOXIDE 25 mmol/L (22-30); CHLORIDE 108 mmol/L (98-107); GLUCOSE 81 mg/dL (75-110); POTASSIUM 4.7 mmol/L (3.6-5.0); SODIUM 144.2 mmol/L (137-145); TOTAL PROTEIN 6.9 g/dL (6.3-8.2)
[2018-01-13 17:18] LABS: INTERNATIONAL RATION (INR) 1.23; PROTHROMBIN TIME 16.2 SEC (11.4-15.4)
[2018-01-13 17:31] VITALS: BP 103/51
--- NOTE | 2018-01-13 22:39 | EKG REPORT ---
SEVERITY:- ABNORMAL ECG - SINUS ARRHYTHMIA, RATE 66-104 ABNRM R PROG, CONSIDER ASMI OR LEAD PLACEMENT : Confirmed by: Chavo Mccabe 13-Jan-2018 19:38:42
== END 2018-01-13 20:00 | disposition short-term general hospital (02) ==
LOC: ER 14:43
DX: K62.5 Hemorrhage of anus and rectum (principal); I10 Essential (primary) hypertension; E03.9 Hypothyroidism, unspecified; Z79.02 Long term (current) use of antithrombotics/antiplatelets; I25.2 Old myocardial infarction; Z90.49 Acquired absence of other specified parts of digestive tract; Z90.710 Acquired absence of both cervix and uterus
CPT/HCPCS: 93005; 99285; 96361; 96365; 36415; 85025; 85610; 80053; 93010; C9113; J7030; S0164

== ENCOUNTER → 2018-02-25 | Outpatient (CLI) | payer MEDICARE, OTHER ==
[2018-02-25 10:47] LABS: ABSOLUTE BASOPHILS # (AUTO) 0.1 10^3/uL (0.0-0.2); ABSOLUTE EOSINOPHILS # (AUTO) 0.3 10^3/uL (0.0-0.6); ABSOLUTE LYMPHOCYTES (AUTO) 1.1 10^3/uL (0.5-4.7); ABSOLUTE MONOCYTES (AUTO) 0.7 10^3/uL (0.1-1.4); ABSOLUTE NEUT (AUTO) 4.5 10^3/uL (1.7-8.2); BASOPHILS % (AUTO) 1.2 % (0-2); EOSINOPHILS % (AUTO) 4.9 % (0-6); HEMATOCRIT 33.3 % (36.0-47.0); HEMOGLOBIN 10.9 g/dL (12.0-15.5); LYMPHOCYTES % (AUTO) 16.1 % (13-45); MEAN CORPUSCULAR HEMOGLOBIN 26.6 pg (27.0-33.4); MEAN CORPUSCULAR HGB CONC 32.8 g/dL (32.0-36.0); MEAN CORPUSCULAR VOLUME 81 fl (80-97); MONOCYTES % (AUTO) 10.3 % (3-13); PLATELET COUNT 295 10^3/uL (150-450); RED BLOOD COUNT 4.12 10^6/uL (3.72-5.28); RED CELL DISTRIBUTION WIDTH 16.6 % (11.5-14.0); SEGMENTED NEUTROPHILS % (AUTO) 67.5 % (42-78); TOTAL CELLS COUNTED % (AUTO) 100 %; WHITE BLOOD COUNT 6.6 10^3/uL (4.0-10.5)
[2018-02-25 11:08] LABS: ALANINE AMINOTRANSFERASE 83 U/L (9-52); ALBUMIN 3.7 g/dL (3.5-5.0); ALKALINE PHOSPHATASE 198 U/L (38-126); ANION GAP 15 (5-19); ASPARTATE AMINO TRANSFERASE 106 U/L (14-36); BILIRUBIN,DIRECT 0.4 mg/dL (0.0-0.4); BILIRUBIN,TOTAL 0.5 mg/dL (0.2-1.3); BLOOD UREA NITROGEN 14 mg/dL (7-20); CALCIUM 8.9 mg/dL (8.4-10.2); CARBON DIOXIDE 23 mmol/L (22-30); CHLORIDE 112 mmol/L (98-107); CHOLESTEROL 159.56 mg/dL (0-200); GLUCOSE 103 mg/dL (75-110); POTASSIUM 4.2 mmol/L (3.6-5.0); SODIUM 149.6 mmol/L (137-145); TOTAL PROTEIN 6.2 g/dL (6.3-8.2); TRIGLYCERIDES 140 mg/dL (<150)
[2018-02-25 11:20] LABS: DIRECT LDL 85 mg/dL (<100)
== END ==
LOC: OD 09:42
PROVIDERS: ATTEND Internal Medicine
DX: E78.2 Mixed hyperlipidemia (principal); I10 Essential (primary) hypertension; R53.83 Other fatigue; E55.9 Vitamin D deficiency, unspecified
CPT/HCPCS: 36415; 80053; 80061; 82306; 84443; 85025

== ENCOUNTER 2018-03-13 19:11 | Emergency (ER) | payer OTHER, MEDICARE ==
[2018-03-13] MEDS ORDERED: ONDANSETRON 4 MG TAB.RAPDIS PO ONE (19:43)
--- NOTE | 2018-03-13 19:46 | ER Document Report ---
ED Medical Screen (RME) - General Chief Complaint: Rectal Bleeding Stated Complaint: BLOOD IN STOOL Time Seen by Provider: 03/13/18 19:41 Notes: RAPID MEDICAL EVALUATION DISCLOSURE I have seen this patient as part of a Rapid Medical Evaluation and, if applicable, placed any initially appropriate orders. The patient will be seen and fully evaluated, including a full history and physical exam, by a provider ( in Main ED or Fast Track) when a room becomes available. 83-year-old female PMH GI bleed here with complaints of bright red bloody stools that started today with associated nausea generalized weakness and lightheadedness (but denies abdominal pain vomiting diarrhea fevers chills). She has had the same episode several times this year. She does take Xarelto for cardiac reasons including previous [place]. She does not remember if they have have found the source of the bleeding from previous GI bleeds. EXAM Mild left upper quadrant TTP No peritoneal signs TRAVEL OUTSIDE OF THE [place] IN LAST 30 DAYS: No - Related Data Allergies/Adverse Reactions: acetaminophen [From Percocet] Allergy (Verified 03/13/18 19:12) oxycodone [From Percocet] Allergy (Verified 03/13/18 19:12) Past Medical History - Social History Frequency of alcohol use: None Drug Abuse: None - Past Medical History Cardiac Medical History: Reports: Hx Heart Attack, Hx Hypertension - cardiovascular disease/ bp medications Denies: Hx Pulmonary Embolism, Hx Heart Murmur Pulmonary Medical History: Denies: Hx Asthma, Hx COPD Neurological Medical History: Denies: Hx Cerebrovascular Accident, Hx Seizures Endocrine Medical History: Reports: Hx Hypothyroidism Renal/ Medical History: Denies: Hx Peritoneal Dialysis GI Medical History: Denies: Hx Hepatitis, Hx Hiatal Hernia, Hx Ulcer Psychiatric Medical History: Reports: Hx Depression Infectious Medical History: Denies: Hx Hepatitis Past Surgical History: Reports: Hx Cardiac Surgery - mitral valve repair,, Hx Cholecystectomy, Hx Hysterectomy, Hx Open Heart Surgery - at least 15 yrs ago ( approx 1984), Hx Valve Replacement - Mitral valve repair. Denies: Hx Mastectomy , Hx Pacemaker. Comment Only: Hx Vascular Surgery - endarterectomy, subclavian bypass, fem fem bypass - Immunizations History of Influenza Vaccine for 05/2017 - 10/2017 Season: Refused Physical Exam - Vital signs Vitals: Temp Pulse Resp BP Pulse Ox 97.9 F 91 15 110/55 L 93 03/13/18 19:16 03/13/18 19:16 03/13/18 19:16 03/13/18 19:16 03/13/18 19:16 Course - Vital Signs Vital signs: Temp Pulse Resp BP Pulse Ox 97.9 F 91 15 110/55 L 93 03/13/18 19:16 03/13/18 19:16 03/13/18 19:16 03/13/18 19:16 03/13/18 19:16 Doctor's Discharge - Discharge Referrals: IVORY TRIVEDI MD [Primary Care Provider] - Follow up as needed
--- NOTE | 2018-03-13 20:32 | ER Document Report ---
ED General - General Chief Complaint: Rectal Bleeding Stated Complaint: BLOOD IN STOOL Time Seen by Provider: 03/13/18 19:41 Mode of Arrival: Ambulatory Information source: Patient, [facility] Records, Outside Facility Records Notes: 83-year-old female with hypertension, atrial fibrillation (on Xarelto) IBS, coronary artery disease presents with complaint of bright red blood per rectum that started today. Patient states that earlier this morning she experienced some mild abdominal cramping, nausea and then and proceeded to have a bloody bowel movement. Patient states that her stool was initially dark in color but the blood was bright red. Patient has had prior similar symptoms and has been admitted recently to [facility] for lower GI bleeding. She states she has had an endoscopy and colonoscopy just recently. She reports that these were normal. Patient currently has no abdominal pain. She denies any chest pain, shortness of breath. TRAVEL OUTSIDE OF THE [place] IN LAST 30 DAYS: No - HPI Onset: This morning Onset/Duration: Gradual, Gone Quality of pain: Cramping Associated symptoms: Nausea. denies: Diarrhea, Vomiting, Shortness of breath Exacerbated by: Denies Relieved by: Denies Similar symptoms previously: Yes Recently seen / treated by doctor: Yes - Related Data Allergies/Adverse Reactions: acetaminophen [From Percocet] Allergy (Verified 03/13/18 19:12) oxycodone [From Percocet] Allergy (Verified 03/13/18 19:12) Past Medical History - General Information source: Patient - Social History Smoking Status: Former Smoker Frequency of alcohol use: None Drug Abuse: None Lives with: Spouse/Significant other Family History: Hypertension Patient has suicidal ideation: No Patient has homicidal ideation: No - Past Medical History Cardiac Medical History: Reports: Hx Heart Attack, Hx Hypertension - cardiovascular disease/ bp medications Denies: Hx Pulmonary Embolism, Hx Heart Murmur Pulmonary Medical History: Denies: Hx Asthma, Hx COPD Neurological Medical History: Denies: Hx Cerebrovascular Accident, Hx Seizures Endocrine Medical History: Reports: Hx Hypothyroidism Renal/ Medical History: Denies: Hx Peritoneal Dialysis GI Medical History: Denies: Hx Hepatitis, Hx Hiatal Hernia, Hx Ulcer Psychiatric Medical History: Reports: Hx Depression Infectious Medical History: Denies: Hx Hepatitis Past Surgical History: Reports: Hx Cardiac Surgery - mitral valve repair,, Hx Cholecystectomy, Hx Hysterectomy, Hx Open Heart Surgery - at least 15 yrs ago ( approx 1984), Hx Valve Replacement - Mitral valve repair. Denies: Hx Mastectomy , Hx Pacemaker. Comment Only: Hx Vascular Surgery - endarterectomy, subclavian bypass, fem fem bypass Review of Systems - Review of Systems Notes: REVIEW OF SYSTEMS: CONSTITUTIONAL : Denies fever, chills, or sweats. Denies recent illness. Denies weight loss, recent hospitalizations. EENT: Denies visual changes, eye pain. Denies nasal or sinus congestion or discharge. Denies sore throat, oral lesions, difficulty swallowing. CARDIOVASCULAR: Denies chest pain. Denies palpitations. Denies lower extremity edema. RESPIRATORY: Denies cough, cold, or chest congestion. Denies shortness of breath, wheezing. GASTROINTESTINAL: Denies abdominal pain or distention. Denies vomiting, or diarrhea. Denies blood in vomitus, Denies constipation. GENITOURINARY: Denies difficulty urinating, painful urination, frequency, blood in urine, or vaginal discharge. MUSCULOSKELETAL: Denies back or neck pain or stiffness. Denies joint pain or swelling. SKIN: Denies rash, lesions or sores. HEMATOLOGIC : Denies easy bruising or bleeding. LYMPHATIC: Denies swollen glands. NEUROLOGICAL: Denies confusion or altered mental status. Denies passing out or loss of consciousness. Denies dizziness or lightheadedness. Denies headache. Denies weakness or paralysis. Denies problems difficulty with ambulation, slurred speech. Denies sensory loss, numbness, or tingling. Denies seizures. PSYCHIATRIC: Denies anxiety or stress. Denies depression, suicidal ideation, or homicidal ideation. Denies visual or auditory hallucinations. Physical Exam - Vital signs Vitals: Temp Pulse Resp BP Pulse Ox 97.9 F 91 15 110/55 L 93 03/13/18 19:16 03/13/18 19:16 03/13/18 19:16 03/13/18 19:16 03/13/18 19:16 Interpretation: No: Tachycardic, Febrile - Notes Notes: PHYSICAL EXAMINATION: GENERAL: Well-appearing, well-nourished and in no acute distress. HEAD: Atraumatic, normocephalic. EYES: Pupils equal round and reactive to light, extraocular movements intact, conjunctiva are normal. ENT: Nares patent, oropharynx clear without exudates. Moist mucous membranes. NECK: Normal range of motion, supple without lymphadenopathy LUNGS: Breath sounds clear to auscultation bilaterally and equal. No wheezes rales or rhonchi. HEART: Regular rate and rhythm without murmurs ABDOMEN: Soft, nontender, nondistended abdomen. No guarding, no rebound. No masses appreciated. Rectal: Brown stool, bright red gross blood, Female : deferred Musculoskeletal: Normal range of motion, no pitting or edema. No cyanosis. NEUROLOGICAL: Cranial nerves grossly intact. Normal speech, normal gait. Normal sensory, motor exams PSYCH: Normal mood, normal affect. SKIN: Warm, Dry, normal turgor, no rashes or lesions noted. Course - Re-evaluation Re-evalutation: Laboratory 03/13/18 03/13/18 03/13/18 20:24 20:24 20:24 WBC 6.6 RBC 3.09 L Hgb 7.8 L Hct 24.2 L MCV 78 L MCH 25.3 L MCHC 32.4 RDW 17.5 H Plt Count 335 Seg Neutrophils % 69.0 Lymphocytes % 17.0 Monocytes % 10.4 Eosinophils % 2.2 Basophils % 1.4 Absolute Neutrophils 4.6 Absolute Lymphocytes 1.1 Absolute Monocytes 0.7 Absolute Eosinophils 0.1 Absolute Basophils 0.1 PT Cancelled INR Cancelled APTT Cancelled Sodium 143.3 Potassium 4.4 Chloride 106 Carbon Dioxide 24 Anion Gap 13 BUN 25 H Creatinine 0.93 Est GFR ( Amer) > 60 Est GFR (Non-Af Amer) 57 L Glucose 102 Calcium 9.0 Total Bilirubin 0.6 Direct Bilirubin 0.2 Neonat Total Bilirubin Not Reportable Neonat Direct Bilirubin Not Reportable Neonat Indirect Bili Not Reportable AST 18 ALT 21 Alkaline Phosphatase 101 Total Protein 6.4 Albumin 3.7 Lipase 140.9 Stool Occult Blood Blood Type Antibody Screen Crossmatch 03/13/18 03/13/18 03/13/18 20:41 21:15 21:15 WBC RBC Hgb Hct MCV MCH MCHC RDW Plt Count Seg Neutrophils % Lymphocytes % Monocytes % Eosinophils % Basophils % Absolute Neutrophils Absolute Lymphocytes Absolute Monocytes Absolute Eosinophils Absolute Basophils PT 14.9 INR 1.11 APTT 20.9 L Sodium Potassium Chloride Carbon Dioxide Anion Gap BUN Creatinine Est GFR ( Amer) Est GFR (Non-Af Amer) Glucose Calcium Total Bilirubin Direct Bilirubin Neonat Total Bilirubin Neonat Direct Bilirubin Neonat Indirect Bili AST ALT Alkaline Phosphatase Total Protein Albumin Lipase Stool Occult Blood POSITIVE Blood Type A POSITIVE Antibody Screen NEGATIVE Crossmatch See Detail 2 units of PRBCs ordered. 03/13/18 20:32 [facility] contacted to inquire about patient's recent endoscopy and colonoscopy. 03/13/18 22:32 03/13/18 22:38 83-year-old female on Xarelto presents with bright red blood per rectum that started earlier today. Upon arrival vitals were reviewed. Patient is afebrile , hypotensive but not tachycardic. She does appear pale but not toxic. Exam is significant for bright red blood on rectal exam. Patient found to have a hemoglobin of 7.8. This is a three-point drop in her hemoglobin from lab work that was obtained on February 25, 2018 where her hemoglobin was 10.9. Blood consent obtained. 2 units of PRBCs were ordered. Patient would like to be transferred back to [facility] since that is where she has been receiving her GI care. Patient accepted by Dr. Shaun Del Rio. 03/13/18 22:39 03/13/18 22:42 - Vital Signs Vital signs: Temp Pulse Resp BP Pulse Ox 97.9 F 91 17 99/64 L 95 03/13/18 19:16 03/13/18 19:16 03/13/18 22:12 03/13/18 22:12 03/13/18 22:12 - Laboratory Result Diagrams: 03/13/18 20:24 03/13/18 20:24 Laboratory results interpreted by me: 03/13/18 03/13/18 03/13/18 20:24 20:24 21:15 RBC 3.09 L Hgb 7.8 L Hct 24.2 L MCV 78 L MCH 25.3 L RDW 17.5 H APTT 20.9 L BUN 25 H Est GFR (Non-Af Amer) 57 L Crossmatch 03/13/18 21:15 RBC Hgb Hct MCV MCH RDW APTT BUN Est GFR (Non-Af Amer) Crossmatch See Detail Critical Care Note - Critical Care Note Total time excluding time spent on procedures (mins): 30 - minutes of critical care time spent in direct contact evaluating and reevaluating the patient, treating symptoms, reviewing labs and studies and speaking with family and consultants excluding any procedures Discharge - Discharge Clinical Impression: Lower GI bleed, Bright red blood per rectum Anemia Qualifiers: Anemia type: unspecified type Qualified Code(s): D64.9 - Anemia, unspecified Atrial fibrillation Qualifiers: Atrial fibrillation type: chronic Qualified Code(s): I48.2 - Chronic atrial fibrillation Hypotension Qualifiers: Hypotension type: unspecified hypotension type Qualified Code(s): I95.9 - Hypotension, unspecified Condition: Good Disposition: [facility] Referrals: IVORY TRIVEDI MD [Primary Care Provider] - Follow up as needed
[2018-03-13 20:43] LABS: ABSOLUTE BASOPHILS # (AUTO) 0.1 10^3/uL (0.0-0.2); ABSOLUTE EOSINOPHILS # (AUTO) 0.1 10^3/uL (0.0-0.6); ABSOLUTE LYMPHOCYTES (AUTO) 1.1 10^3/uL (0.5-4.7); ABSOLUTE MONOCYTES (AUTO) 0.7 10^3/uL (0.1-1.4); ABSOLUTE NEUT (AUTO) 4.6 10^3/uL (1.7-8.2); BASOPHILS % (AUTO) 1.4 % (0-2); EOSINOPHILS % (AUTO) 2.2 % (0-6); HEMATOCRIT 24.2 % (36.0-47.0); MEAN CORPUSCULAR HEMOGLOBIN 25.3 pg (27.0-33.4); MEAN CORPUSCULAR HGB CONC 32.4 g/dL (32.0-36.0); MEAN CORPUSCULAR VOLUME 78 fl (80-97); MONOCYTES % (AUTO) 10.4 % (3-13); PLATELET COUNT 335 10^3/uL (150-450); RED BLOOD COUNT 3.09 10^6/uL (3.72-5.28); RED CELL DISTRIBUTION WIDTH 17.5 % (11.5-14.0); TOTAL CELLS COUNTED % (AUTO) 100 %; WHITE BLOOD COUNT 6.6 10^3/uL (4.0-10.5)
[2018-03-13 20:45] LABS: HEMOGLOBIN 7.8 g/dL (12.0-15.5)
[2018-03-13 20:57] LABS: ALANINE AMINOTRANSFERASE 21 U/L (9-52); ALBUMIN 3.7 g/dL (3.5-5.0); ALKALINE PHOSPHATASE 101 U/L (38-126); ANION GAP 13 (5-19); ASPARTATE AMINO TRANSFERASE 18 U/L (14-36); BILIRUBIN,DIRECT 0.2 mg/dL (0.0-0.4); BILIRUBIN,TOTAL 0.6 mg/dL (0.2-1.3); BLOOD UREA NITROGEN 25 mg/dL (7-20); CARBON DIOXIDE 24 mmol/L (22-30); CHLORIDE 106 mmol/L (98-107); GLUCOSE 102 mg/dL (75-110); LIPASE 140.9 U/L (23-300); POTASSIUM 4.4 mmol/L (3.6-5.0); SODIUM 143.3 mmol/L (137-145); TOTAL PROTEIN 6.4 g/dL (6.3-8.2)
[2018-03-13] MEDS ORDERED: NORMAL SALINE 250 ML IV PRN ×2 (21:07)
[2018-03-13] MEDS ORDERED: FUROSEMIDE INJ/PF 20 MG/2 ML SDV IV PRN (21:07)
[2018-03-13] MEDS ORDERED: DIPHENHYDRAMINE HCL 25 MG CAPSULE PO PRN (21:07)
[2018-03-13 21:36] LABS: INTERNATIONAL RATION (INR) 1.11; PARTIAL THROMBOPLASTIN TIME 20.9 SEC (23.5-35.8); PROTHROMBIN TIME 14.9 SEC (11.4-15.4)
[2018-03-13 23:03] VITALS: BP 88/55
== END 2018-03-13 23:11 | disposition short-term general hospital (02) ==
LOC: ER 19:11
DX: K92.2 Gastrointestinal hemorrhage, unspecified (principal); D64.9 Anemia, unspecified; I48.2 Chronic atrial fibrillation; Z79.01 Long term (current) use of anticoagulants; I95.9 Hypotension, unspecified; I10 Essential (primary) hypertension; I25.10 Atherosclerotic heart disease of native coronary artery without angina pectoris; R11.0 Nausea; Z88.6 Allergy status to analgesic agent; Z88.5 Allergy status to narcotic agent; Z87.891 Personal history of nicotine dependence
CPT/HCPCS: 99291; 86900; 86901; 36415; 36430; 86850; 83690; 85025; 85610; 85730; 82272; 80053; 86920; P9016; S0119

== ENCOUNTER 2018-03-18 12:52 | Emergency (ER) | payer OTHER, MEDICARE ==
--- NOTE | 2018-03-18 13:26 | ER Document Report ---
ED Medical Screen (RME) - General Chief Complaint: Contusion Stated Complaint: RIGHT ARM PAIN Time Seen by Provider: 03/18/18 13:10 TRAVEL OUTSIDE OF THE [place] IN LAST 30 DAYS: No - HPI Notes: 03/18/18 13:25 Patient hypotensive in triage area states lightheaded and dizzy placed in the wheelchair. Patient was alert and oriented upon my evaluation recently transferred to [facility] due to GI bleeding released on has a history of atrial fibrillation and is on Xarelto. Patient has 2 hematomas that do not look to be expanding bilateral antecubital fossa is from previous venipunctures due to her hospitalizations. Patient states restarted her Xarelto today. Denies any rectal bleeding - Related Data Allergies/Adverse Reactions: acetaminophen [From Percocet] Allergy (Verified 03/18/18 12:58) oxycodone [From Percocet] Allergy (Verified 03/18/18 12:58) Past Medical History - Social History Chew tobacco use (# tins/day): No Frequency of alcohol use: None Drug Abuse: None - Past Medical History Cardiac Medical History: Reports: Hx Heart Attack, Hx Hypertension - cardiovascular disease/ bp medications Denies: Hx Pulmonary Embolism, Hx Heart Murmur Pulmonary Medical History: Denies: Hx Asthma, Hx COPD Neurological Medical History: Denies: Hx Cerebrovascular Accident, Hx Seizures Endocrine Medical History: Reports: Hx Hypothyroidism Renal/ Medical History: Denies: Hx Peritoneal Dialysis GI Medical History: Denies: Hx Hepatitis, Hx Hiatal Hernia, Hx Ulcer Psychiatric Medical History: Reports: Hx Depression Infectious Medical History: Denies: Hx Hepatitis Past Surgical History: Reports: Hx Cardiac Surgery - mitral valve repair,, Hx Cholecystectomy, Hx Hysterectomy, Hx Open Heart Surgery - at least 15 yrs ago ( approx 1984), Hx Valve Replacement - Mitral valve repair. Denies: Hx Mastectomy , Hx Pacemaker. Comment Only: Hx Vascular Surgery - endarterectomy, subclavian bypass, fem fem bypass - Immunizations History of Influenza Vaccine for 05/2017 - 10/2017 Season: Refused Review of Systems - Review of Systems Constitutional: Weakness, Other - Arm pain Physical Exam - Vital signs Vitals: Temp Pulse Resp BP Pulse Ox 97.5 F 89 20 78/42 L 95 03/18/18 13:06 03/18/18 13:06 03/18/18 13:06 03/18/18 13:06 03/18/18 13:06 - General Notes: Bilateral antecubital hematomas nonpulsatile Course - Vital Signs Vital signs: Temp Pulse Resp BP Pulse Ox 97.5 F 89 20 78/42 L 95 03/18/18 13:06 03/18/18 13:06 03/18/18 13:06 03/18/18 13:06 03/18/18 13:06 Doctor's Discharge - Discharge Referrals: IVORY TRIVEDI MD [Primary Care Provider] - Follow up as needed
[2018-03-18] MEDS ORDERED: NORMAL SALINE 500 ML IV ONE (13:31)
--- NOTE | 2018-03-18 14:09 | ER Document Report ---
ED General - General Chief Complaint: Contusion Stated Complaint: RIGHT ARM PAIN Time Seen by Provider: 03/18/18 13:10 Mode of Arrival: Ambulatory Information source: Patient TRAVEL OUTSIDE OF THE [place] IN LAST 30 DAYS: No - HPI Patient complains to provider of: Right arm hematoma, dizziness Onset/Duration: Persistent Quality of pain: Achy Associated symptoms: None Notes: Patient is an 83-year-old female who presents to the emergency room complaining of right arm hematoma that occurred when she received a blood transfusion last week secondary to GI bleed, the IV infiltrated and caused the hematoma, she is concerned that she is having some pain and swelling there and that the ecchymosis has not yet been absorbed, however she was noted to be quite hypotensive and dizzy in triage area, she denies any abdominal pain, new GI bleeding today, no dysuria or hematuria, denies any pain elsewhere - Related Data Allergies/Adverse Reactions: acetaminophen [From Percocet] Allergy (Verified 03/18/18 12:58) oxycodone [From Percocet] Allergy (Verified 03/18/18 12:58) Past Medical History - General Information source: Patient - Social History Smoking Status: Unknown if Ever Smoked Chew tobacco use (# tins/day): No Frequency of alcohol use: None Drug Abuse: None Family History: Hypertension Patient has suicidal ideation: No Patient has homicidal ideation: No - Past Medical History Cardiac Medical History: Reports: Hx Heart Attack, Hx Hypertension - cardiovascular disease/ bp medications Denies: Hx Pulmonary Embolism, Hx Heart Murmur Pulmonary Medical History: Denies: Hx Asthma, Hx COPD Neurological Medical History: Denies: Hx Cerebrovascular Accident, Hx Seizures Endocrine Medical History: Reports: Hx Hypothyroidism Renal/ Medical History: Denies: Hx Peritoneal Dialysis GI Medical History: Denies: Hx Hepatitis, Hx Hiatal Hernia, Hx Ulcer Psychiatric Medical History: Reports: Hx Depression Infectious Medical History: Denies: Hx Hepatitis Past Surgical History: Reports: Hx Cardiac Surgery - mitral valve repair,, Hx Cholecystectomy, Hx Hysterectomy, Hx Open Heart Surgery - at least 15 yrs ago ( approx 1984), Hx Valve Replacement - Mitral valve repair. Denies: Hx Mastectomy , Hx Pacemaker. Comment Only: Hx Vascular Surgery - endarterectomy, subclavian bypass, fem fem bypass Review of Systems - Review of Systems Constitutional: No symptoms reported EENT: No symptoms reported Cardiovascular: Dizziness Respiratory: No symptoms reported Gastrointestinal: No symptoms reported Genitourinary: No symptoms reported Female Genitourinary: No symptoms reported Musculoskeletal: No symptoms reported Skin: See HPI Hematologic/Lymphatic: No symptoms reported Neurological/Psychological: No symptoms reported -: Yes All other systems reviewed and negative Physical Exam - Vital signs Vitals: Temp Pulse Resp BP Pulse Ox 97.5 F 89 20 78/42 L 95 03/18/18 13:06 03/18/18 13:06 03/18/18 13:06 03/18/18 13:06 03/18/18 13:06 Interpretation: Normal, Hypotensive - General General appearance: Appears well, Alert - HEENT Head: Normocephalic, Atraumatic Eyes: Normal Pupils: PERRL - Respiratory Respiratory status: No respiratory distress Chest status: Nontender Breath sounds: Normal Chest palpation: Normal - Cardiovascular Rhythm: Regular Heart sounds: Normal auscultation Murmur: No - Abdominal Inspection: Normal Distension: No distension Bowel sounds: Normal Tenderness: Nontender Organomegaly: No organomegaly - Back Back: Normal, Nontender - Extremities General upper extremity: Normal ROM, Normal temperature General lower extremity: Normal inspection, Nontender, Normal color, Normal ROM , Normal temperature, Normal weight bearing. No: Opal's sign Elbow: Other - Bilateral antecubital spaces with a large purplish discolored ecchymosis, distal sensation is motor is intact with bilateral 2+ radial pulses and brisk capillary refill - Neurological Neuro grossly intact: Yes Cognition: Normal Orientation: AAOx4 [place] Coma Scale Eye Opening: Spontaneous [place] Coma Scale Verbal: Oriented [place] Coma Scale Motor: Obeys Commands [place] Coma Scale Total: 15 Speech: Normal Motor strength normal: LUE, RUE, LLE, RLE Sensory: Normal - Psychological Associated symptoms: Normal affect, Normal mood - Skin Skin Temperature: Warm Skin Moisture: Dry Skin Color: Normal Course - Re-evaluation Re-evalutation: 03/18/18 17:11 Patient resting comfortably, reports feeling much better, blood pressure is improved, symptoms likely secondary to her having a nitroglycerin patch on for 12 hours a day, she was advised to discontinue using this and she just did not primary care provider or return if symptoms worsen, patient acknowledges understanding and agreement with this plan - Vital Signs Vital signs: Temp Pulse Resp BP Pulse Ox 97.8 F 89 16 98/59 L 96 03/18/18 16:46 03/18/18 13:06 03/18/18 16:46 03/18/18 16:02 03/18/18 16:46 - Laboratory Result Diagrams: 03/18/18 14:06 03/18/18 14:06 Laboratory results interpreted by me: 03/18/18 03/18/18 03/18/18 14:06 14:06 14:06 Hgb 11.0 L Hct 33.6 L MCH 26.6 L RDW 18.1 H PT 15.7 H Sodium 145.5 H Est GFR (Non-Af Amer) 53 L AST 43 H Alkaline Phosphatase 238 H - EKG Interpretation by Me EKG shows normal: Sinus rhythm Rate: Normal Rhythm: NSR Discharge - Discharge Clinical Impression: Dizziness Hematoma of arm Qualifiers: Encounter type: sequela Laterality: unspecified laterality Qualified Code(s): S40.029S - Contusion of unspecified upper arm, sequela Hypotension Qualifiers: Hypotension type: hypotension due to drug Qualified Code(s): I95.2 - Hypotension due to drugs Condition: Stable Disposition: HOME, SELF-CARE Instructions: Hematoma ([facility]), Dizziness ([facility]), Hypotension ([facility]) Additional Instructions: Follow up with 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 Return to the emergency room immediately if symptoms worsen or any additional concerns. Referrals: IVORY TRIVEDI MD [Primary Care Provider] - Follow up as needed
[2018-03-18 14:22] LABS: ABSOLUTE EOSINOPHILS # (AUTO) 0.1 10^3/uL (0.0-0.6); ABSOLUTE LYMPHOCYTES (AUTO) 1.3 10^3/uL (0.5-4.7); ABSOLUTE MONOCYTES (AUTO) 0.8 10^3/uL (0.1-1.4); ABSOLUTE NEUT (AUTO) 6.6 10^3/uL (1.7-8.2); BASOPHILS % (AUTO) 0.3 % (0-2); EOSINOPHILS % (AUTO) 1.4 % (0-6); HEMATOCRIT 33.6 % (36.0-47.0); LYMPHOCYTES % (AUTO) 14.5 % (13-45); MEAN CORPUSCULAR HEMOGLOBIN 26.6 pg (27.0-33.4); MEAN CORPUSCULAR HGB CONC 32.7 g/dL (32.0-36.0); MEAN CORPUSCULAR VOLUME 81 fl (80-97); MONOCYTES % (AUTO) 8.9 % (3-13); PLATELET COUNT 373 10^3/uL (150-450); RED BLOOD COUNT 4.13 10^6/uL (3.72-5.28); RED CELL DISTRIBUTION WIDTH 18.1 % (11.5-14.0); SEGMENTED NEUTROPHILS % (AUTO) 74.9 % (42-78); TOTAL CELLS COUNTED % (AUTO) 100 %; WHITE BLOOD COUNT 8.9 10^3/uL (4.0-10.5)
[2018-03-18 14:38] LABS: INTERNATIONAL RATION (INR) 1.19; PROTHROMBIN TIME 15.7 SEC (11.4-15.4)
[2018-03-18 14:39] LABS: PARTIAL THROMBOPLASTIN TIME 34.1 SEC (23.5-35.8)
[2018-03-18 14:40] LABS: ALANINE AMINOTRANSFERASE 51 U/L (9-52); ALBUMIN 4.1 g/dL (3.5-5.0); ALKALINE PHOSPHATASE 238 U/L (38-126); ANION GAP 17 (5-19); ASPARTATE AMINO TRANSFERASE 43 U/L (14-36); BILIRUBIN,DIRECT 0.3 mg/dL (0.0-0.4); BLOOD UREA NITROGEN 20 mg/dL (7-20); CALCIUM 9.5 mg/dL (8.4-10.2); CARBON DIOXIDE 23 mmol/L (22-30); CHLORIDE 106 mmol/L (98-107); GLUCOSE 100 mg/dL (75-110); POTASSIUM 4.3 mmol/L (3.6-5.0); SODIUM 145.5 mmol/L (137-145); TOTAL PROTEIN 7.1 g/dL (6.3-8.2)
[2018-03-18] MEDS ORDERED: NORMAL SALINE 1000 ML 1,000 ML IV ONE (16:03)
[2018-03-18 17:34] VITALS: BP 106/63
--- NOTE | 2018-03-18 21:58 | EKG REPORT ---
SEVERITY:- ABNORMAL ECG - SINUS RHYTHM LVH WITH SECONDARY REPOLARIZATION ABNORMALITY BORDERLINE PROLONGED QT INTERVAL CONSIDER INF AK AGE INDETERMINATE : Confirmed by: Chavo Mccabe 18-Mar-2018 21:57:54
== END 2018-03-18 17:34 | disposition home or self-care (01) ==
LOC: ER 12:52
DX: R42 Dizziness and giddiness (principal); I95.2 Hypotension due to drugs; S40.0 Contusion of shoulder and upper arm; X58.XXXS Exposure to other specified factors, sequela; Z88.6 Allergy status to analgesic agent; I25.2 Old myocardial infarction; I10 Essential (primary) hypertension; E03.9 Hypothyroidism, unspecified; Z90.49 Acquired absence of other specified parts of digestive tract; Z90.710 Acquired absence of both cervix and uterus
CPT/HCPCS: 93005; 99284; 96360; 86900; 86901; 36415; 86850; 85025; 85610; 85730; 80053; 84484; 93010; J7030; J7040

== ENCOUNTER → 2018-04-13 | Outpatient (CLI) | payer MEDICARE, OTHER ==
[2018-04-13 13:09] LABS: ABSOLUTE EOSINOPHILS # (AUTO) 0.2 10^3/uL (0.0-0.6); ABSOLUTE LYMPHOCYTES (AUTO) 1.1 10^3/uL (0.5-4.7); ABSOLUTE MONOCYTES (AUTO) 0.4 10^3/uL (0.1-1.4); ABSOLUTE NEUT (AUTO) 3.7 10^3/uL (1.7-8.2); BASOPHILS % (AUTO) 0.7 % (0-2); EOSINOPHILS % (AUTO) 3.4 % (0-6); HEMATOCRIT 27.2 % (36.0-47.0); HEMOGLOBIN 8.7 g/dL (12.0-15.5); LYMPHOCYTES % (AUTO) 19.2 % (13-45); MEAN CORPUSCULAR HEMOGLOBIN 24.6 pg (27.0-33.4); MEAN CORPUSCULAR HGB CONC 31.9 g/dL (32.0-36.0); MONOCYTES % (AUTO) 8.2 % (3-13); PLATELET COUNT 274 10^3/uL (150-450); RED BLOOD COUNT 3.53 10^6/uL (3.72-5.28); RED CELL DISTRIBUTION WIDTH 17.5 % (11.5-14.0); SEGMENTED NEUTROPHILS % (AUTO) 68.5 % (42-78); TOTAL CELLS COUNTED % (AUTO) 100 %; WHITE BLOOD COUNT 5.5 10^3/uL (4.0-10.5)
[2018-04-13 13:38] LABS: MEAN CORPUSCULAR VOLUME 77 fl (80-97)
[2018-04-13 13:39] LABS: ALANINE AMINOTRANSFERASE 15 U/L (9-52); ALBUMIN 3.6 g/dL (3.5-5.0); ALKALINE PHOSPHATASE 83 U/L (38-126); ANION GAP 12 (5-19); ASPARTATE AMINO TRANSFERASE 18 U/L (14-36); BILIRUBIN,DIRECT 0.2 mg/dL (0.0-0.4); BILIRUBIN,TOTAL 0.3 mg/dL (0.2-1.3); BLOOD UREA NITROGEN 16 mg/dL (7-20); CALCIUM 8.8 mg/dL (8.4-10.2); CARBON DIOXIDE 25 mmol/L (22-30); CHLORIDE 109 mmol/L (98-107); GLUCOSE 123 mg/dL (75-110); POTASSIUM 4.2 mmol/L (3.6-5.0); SODIUM 145.9 mmol/L (137-145); TOTAL PROTEIN 6.3 g/dL (6.3-8.2)
[2018-04-14 07:42] LABS: HEPATITIS A AB IGM Negative (Negative); HEPATITIS B CORE AB IGM Negative (Negative); HEPATITS B SURFACE ANTIGEN Negative (Negative)
[2018-04-14 16:24] LABS: HEPATITIS C VIRUS ANTIBODY <0.1 s/co ratio (0.0-0.9)
== END ==
LOC: OD 11:21
PROVIDERS: ATTEND Internal Medicine
DX: I10 Essential (primary) hypertension (principal); D50.0 Iron deficiency anemia secondary to blood loss (chronic); R94.5 Abnormal results of liver function studies
CPT/HCPCS: 36415; 80053; 80074; 82728; 85025

== ENCOUNTER 2019-01-24 09:53 | Inpatient (IN) | payer MEDICARE, OTHER ==
[2019-01-24 10:29] LABS: HEMATOCRIT 46.7 % (36.0-47.0); HEMOGLOBIN 14.4 g/dL (12.0-15.5); MEAN CORPUSCULAR HEMOGLOBIN 27.6 pg (27.0-33.4); MEAN CORPUSCULAR HGB CONC 30.8 g/dL (32.0-36.0); MEAN CORPUSCULAR VOLUME 90 fl (80-97); RED BLOOD COUNT 5.21 10^6/uL (3.72-5.28); RED CELL DISTRIBUTION WIDTH 17.1 % (11.5-14.0); WHITE BLOOD COUNT 20.8 10^3/uL (4.0-10.5)
[2019-01-24] MEDS ORDERED: FUROSEMIDE INJ/PF 20 MG/2 ML SDV IV ONE ×3 (10:38→22:33)
--- NOTE | 2019-01-24 10:45 | RADIOLOGY REPORT (SQ) ---
EXAM DESCRIPTION: CHEST SINGLE VIEW COMPLETED DATE/TIME: 01/24/2019 10:28 am REASON FOR STUDY: Dyspnea, rales, A. fib RVR COMPARISON: 11/14/2017 EXAM PARAMETERS: NUMBER OF VIEWS: One view. TECHNIQUE: Single frontal radiographic view of the chest acquired. RADIATION DOSE: NA LIMITATIONS: None. FINDINGS: LUNGS AND PLEURA: Lungs demonstrate bilateral interstitial opacities with associated Kerle y B-lines and peribronchial opacities. No dense focal consolidation. No large effusion. No pneumot horax. MEDIASTINUM AND HILAR STRUCTURES: No discrete mass. HEART AND VASCULAR STRUCTURES: Normal heart size. Aortic atherosclerosis. Evidence of aortic valvul ar prostheses. BONES: No acute findings. Median sternotomy changes. HARDWARE: Median sternotomy hardware. Aortic valvular prostheses. OTHER: No other significant finding. IMPRESSION: Bilateral peribronchial and interstitial opacities, likely edema. No large effusion. N o dense consolidation. TECHNICAL DOCUMENTATION: JOB ID: [id number] [employer]- All Rights Reserved Reading location - IP/workstation name: [email or web address]
[2019-01-24 10:47] LABS: ALANINE AMINOTRANSFERASE 89 U/L (9-52); ALBUMIN 3.7 g/dL (3.5-5.0); ALKALINE PHOSPHATASE 145 U/L (38-126); ASPARTATE AMINO TRANSFERASE 90 U/L (14-36); BILIRUBIN,DIRECT 0.5 mg/dL (0.0-0.4); BLOOD UREA NITROGEN 34 mg/dL (7-20); CALCIUM 8.7 mg/dL (8.4-10.2); CARBON DIOXIDE 14 mmol/L (22-30); CHLORIDE 113 mmol/L (98-107); CREATINE KINASE 33 U/L (30-135); GLUCOSE 186 mg/dL (75-110); POTASSIUM 4.3 mmol/L (3.6-5.0); SODIUM 146.6 mmol/L (137-145); TOTAL PROTEIN 6.5 g/dL (6.3-8.2)
[2019-01-24 10:47] LABS: ARTERIAL BLOOD BASE EXCESS -14.2 mmol/L; ARTERIAL BLOOD FIO2 75%; ARTERIAL BLOOD H2CO3 1.08 mmol/L (1.05-1.35); ARTERIAL BLOOD HCO3 13.2 mmol/L (20-24); ARTERIAL BLOOD O2 SATURATION 98.1 % (94-98); ARTERIAL BLOOD PO2 136.7 mmHg (80-100); ARTERIAL BLOOD TOTAL CO2 14.3 mmol/L (21-25)
[2019-01-24 10:48] LABS: ARTERIAL BLOOD PH 7.18 (7.35-7.45)
[2019-01-24 10:50] LABS: ANION GAP 19 (5-19)
[2019-01-24 10:55] LABS: CREATINE KINASE MB 2.16 ng/mL (<4.55)
[2019-01-24 10:57] LABS: ABSOLUTE LYMPHOCYTES# (MANUAL) 2.9 10^3/uL (0.5-4.7); ABSOLUTE MONOCYTES # (MANUAL) 2.1 10^3/uL (0.1-1.4); ABSOLUTE NEUTROPHILS# (MANUAL) 15.6 10^3/uL (1.7-8.2); BAND NEUTROPHILS % (MANUAL) 1 % (3-5); BASOPHILS % (MANUAL) 1 % (0-2); EOSINOPHILS % (MANUAL) 0 % (0-6); LYMPHOCYTES % (MANUAL) 14 % (13-45); MONOCYTES % (MANUAL) 10 % (3-13); SEGMENTED NEUTROPHILS % (MAN) 74 % (42-78); TOTAL CELLS COUNTED 100
[2019-01-24 11:00] LABS: ANISOCYTOSIS 1+; PLATELET CLUMPS PRESENT; POLYCHROMASIA SLIGHT
[2019-01-24 11:01] LABS: PLATELET COMMENT ADEQUATE; PLATELET COUNT 398 10^3/uL (150-450)
[2019-01-24 11:07] LABS: TROPONIN I 0.088 ng/mL
--- NOTE | 2019-01-24 11:44 | ER Document Report ---
Entered by DANIELLE MONTERROSO SCRIBE 01/24/19 1046 Acting as scribe for:VANIA WEBSTER MD ED General - General Stated Complaint: WEAKNESS Mode of Arrival: Medic Information source: Patient, Emergency Med Personnel Notes: Patient is an 84 year old female with HTN, HLD, hypothyroidism, depression and a history of TX and mitral valve repair presents to the emergency department via EMS complaining of weakness. According to EMS, patient called them complaining of generalized weakness and nausea. Upon EMS arrival to the scene, the patient appeared to be in SVT with a heart rate of 170 bpm. EMS administered 6 mg of adenosine followed by 12 mg of adenosine which converted the patient to A. fib with a heart rate of approximately 110 bpm. EMS reports after rhythm change patient developed wheezing and rales and was placed on BiPAP. They further report patient was maintaining an oxygen saturation of 94% on BiPAP. Patient's blood pressure is 118 systolic. Prior to administering adenosine, EMS administer 1 L of normal saline. Patient is currently on Xarelto. I did attempted to clarify the history with the spouse and the patient. She has been feeling tired and weak for greater than 1 week. The cyanotic appearance to her skin she reports has been present for at least a month. 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 She does have a history of irritable bowel syndrome and her spouse thought that may be all that was happening. She further reports that she has been nauseous since Tuesday but has not had any abdominal pain except for the lower abdominal cramping she gets from time to time. According to the spouse and patient, the lower abdominal cramping was worse today. The reason he called 911 today was because he was tired of seeing her feeling like she has been feeling for the past few days. She was not aware of her fast heart rate. At this point is difficult to know how long her heart rate had been in the 170 range. If it had been fast for several days and she was suffering from a low flow state, that could explain her laboratory abnormalities and her abdominal cramping. However her examination suggested that she was possibly volume depleted, but according to EMS all of her respiratory problems started after she received 1 L of normal saline. The chest x-ray is read as most likely edema. TRAVEL OUTSIDE OF THE [place] IN LAST 30 DAYS: No - Related Data Allergies/Adverse Reactions: acetaminophen [From Percocet] Allergy (Verified 03/18/18 12:58) oxycodone [From Percocet] Allergy (Verified 03/18/18 12:58) Past Medical History - General Information source: Patient, Emergency Med Personnel - Social History Smoking Status: Former Smoker Cigarette use (# per day): No Chew tobacco use (# tins/day): No Smoking Education Provided: No Frequency of alcohol use: None Family History: Hypertension - Past Medical History Cardiac Medical History: Reports: Hx Atrial Fibrillation, Hx Heart Attack, Hx Hypercholesterolemia, Hx Hypertension - cardiovascular disease/ bp medications, Hx Peripheral Vascular Disease Endocrine Medical History: Reports: Hx Hypothyroidism GI Medical History: Reports: Other - GI bleed with transfusion 2017 Psychiatric Medical History: Reports: Hx Depression Past Surgical History: Reports: Hx Cardiac Surgery, Hx Cholecystectomy, Hx Hysterectomy, Hx Open Heart Surgery - at least 15 yrs ago (approx 1984), Hx Valve Replacement - Mitral valve repair, Hx Vascular Surgery - endarterectomy, left subclavian bypass, right fem bypass Review of Systems - Review of Systems Constitutional: No symptoms reported, See HPI, Weakness EENT: No symptoms reported Cardiovascular: See HPI Respiratory: See HPI Gastrointestinal: No symptoms reported Genitourinary: No symptoms reported Female Genitourinary: No symptoms reported Musculoskeletal: No symptoms reported Skin: No symptoms reported Hematologic/Lymphatic: No symptoms reported Neurological/Psychological: No symptoms reported -: Yes All other systems reviewed and negative Physical Exam - Vital signs Vitals: Resp Pulse Ox 39 H 96 01/24/19 10:06 01/24/19 10:06 - Notes Notes: GENERAL: Alert, interacts well. Mild respiratory distress. HEAD: Normocephalic, atraumatic. EYES: Pupils equal, round, and reactive to light. Extraocular movements intact. ENT: Oral mucosa moist, tongue midline. NECK: Full range of motion. Supple. Trachea midline. LUNGS: Tachypneic. On BiPAP, 97% oxygen saturation. Diffuse rales and wheezes. Mild respiratory distress. HEART: Tachycardic. No murmurs, gallops, or rubs. ABDOMEN: Soft, non-tender. Non-distended. Bowel sounds present in all 4 quadrants. No guarding, rigidity, or rebound. EXTREMITIES: Moves all 4 extremities spontaneously. No edema, radial and dorsalis pedis pulses 2/4 bilaterally. No cyanosis. NEUROLOGICAL: Alert and oriented x3. Normal speech. PSYCH: Normal affect, normal mood. SKIN: Cyanotic appearance of BUE, BLE and chest, warm to the touch. Course - Re-evaluation Re-evalutation: 01/24/19 14:41 The patient just went into a sinus tachycardia with a rate of about 190, the nurses claim it had been over 200. The complexes are similar to the complexes seen when the rate was in the 90s. This does appear to be in SVT. She will be given a Gunner again to see if it will slow the rate like it did with EMS, and we will give an amp of sodium bicarb due to her known metabolic acidosis. - Vital Signs Vital signs: Temp Pulse Resp BP Pulse Ox 98.5 F 39 H 143/103 H 98 01/24/19 10:42 01/24/19 10:19 01/24/19 10:19 01/24/19 10:19 - Laboratory Result Diagrams: 01/24/19 10:09 01/24/19 10:09 Laboratory results interpreted by me: 01/24/19 01/24/19 01/24/19 10:09 10:09 10:09 WBC 20.8 H MCHC 30.8 L RDW 17.1 H Band Neutrophils % 1 L Abs Neuts (Manual) 15.6 H Abs Monocytes (Manual) 2.1 H ABG pH ABG pO2 ABG HCO3 ABG Total CO2 ABG O2 Saturation Sodium 146.6 H Chloride 113 H Carbon Dioxide 14 L BUN 34 H Est GFR ( Amer) 52 L Est GFR (Non-Af Amer) 43 L Glucose 186 H Lactic Acid Direct Bilirubin 0.5 H AST 90 H ALT 89 H Alkaline Phosphatase 145 H NT-Pro-B Natriuret Pep 40769 H Urine Protein Ur Leukocyte Esterase Urine Ascorbic Acid 01/24/19 01/24/19 01/24/19 10:24 12:10 12:45 WBC MCHC RDW Band Neutrophils % Abs Neuts (Manual) Abs Monocytes (Manual) ABG pH 7.18 L* ABG pO2 136.7 H ABG HCO3 13.2 L ABG Total CO2 14.3 L ABG O2 Saturation 98.1 H Sodium Chloride Carbon Dioxide BUN Est GFR ( Amer) Est GFR (Non-Af Amer) Glucose Lactic Acid 9.6 H Direct Bilirubin AST ALT Alkaline Phosphatase NT-Pro-B Natriuret Pep Urine Protein 30 H Ur Leukocyte Esterase MODERATE H Urine Ascorbic Acid 40 H - Diagnostic Test Radiology reviewed: Image reviewed, Reports reviewed - Chest x-ray shows bilateral peribronchial interstitial opacities, likely edema. - EKG Interpretation by Me EKG shows normal: Sinus rhythm, [place], Intervals, QRS Complexes, ST-T Waves Rate: Tachycardia - 120 Rhythm: PVC's [place]/QRS: Left axis deviation, IVCD Voltage: Consistant with LVH When compared to previous EKG there are: Previous EKG unavailable - Consults Dr. Hamilton Time consulted: 13:50 Consulted provider: will come to ER Critical Care Note - Critical Care Note Total time excluding time spent on procedures (mins): 55 Discharge - Discharge Clinical Impression: Pulmonary vascular congestion, Interstitial infiltrates, Metabolic acidosis Sepsis Qualifiers: Sepsis type: sepsis due to unspecified organism Qualified Code(s): A41.9 - Sepsis, unspecified organism Leukocytosis Qualifiers: Leukocytosis type: unspecified Qualified Code(s): D72.829 - Elevated white blood cell count, unspecified Condition: Fair Disposition: ADMITTED INPATIENT Admitting Provider: Alfonso (Hospitalist) Unit Admitted: ICU Scribe Attestation: 01/24/19 12:48 I personally performed the services described in the documentation, reviewed and edited the documentation which was dictated to the scribe in my presence, and it accurately records my words and actions. I personally performed the services described in the documentation, reviewed and edited the documentation which was dictated to the scribe in my presence, and it accurately records my words and actions.
[2019-01-24] MEDS ORDERED: LEVOFLOXACIN 750 MG/D5W RTU 750 MG/150 ML RTUPB IV ONE (12:15)
[2019-01-24] MEDS ORDERED: ONDANSETRON HCL INJ/PF 4 MG/2 ML SDV IV ONE (12:19)
[2019-01-24 13:09] LABS: APPEARANCE,URINE CLOUDY; BILIRUBIN,URINE NEGATIVE (NEGATIVE); COLOR,URINE YELLOW; GLUCOSE, URINE NEGATIVE (NEGATIVE); KETONES,URINE NEGATIVE (NEGATIVE); LEUKOCYTE ESTERASE,URINE MODERATE (NEGATIVE); NITRITE,URINE NEGATIVE (NEGATIVE); PROTEIN,URINE 30 mg/dL (NEGATIVE); URINE SPECIFIC GRAVITY 1.017; UROBILINOGEN,URINE NEGATIVE mg/dL (<2.0)
[2019-01-24 14:20] LABS: AMYLASE 31 U/L (30-110)
[2019-01-24] MEDS ORDERED: ADENOSINE INJ/PF 6 MG/2 ML SDV IV ONE ×2 (14:37→14:43)
[2019-01-24] MEDS ORDERED: SODIUM BICARBONATE 8.4% INJ 50 MEQ/50 ML DISP.SYRIN IV ONE (14:40)
[2019-01-24] MEDS ORDERED: SODIUM BICARBONATE 8.4% INJ 50 MEQ/50 ML DISP.SYRIN ONE (14:41)
[2019-01-24] MEDS ORDERED: DILTIAZEM HCL INJ 25 MG/5 ML VIAL ONE (14:44)
[2019-01-24] MEDS ORDERED: ONDANSETRON HCL INJ/PF 4 MG/2 ML SDV IV PRN (14:59)
[2019-01-24] MEDS ORDERED: LEVALBUTEROL HCL NEB 0.63 MG/3 ML AMPUL NEB PRN (14:59)
[2019-01-24] MEDS ORDERED: ACETAMINOPHEN 650 MG SUPP.RECT PR PRN (14:59)
[2019-01-24] MEDS ORDERED: NORMAL SALINE 1000 ML 1,000 ML IV PRN ×2 (14:59→16:46)
[2019-01-24] MEDS ORDERED: DEXTROSE 5%-WATER 500 ML with AMIODARONE HCL 900 MG IV PRN ×2 (15:06)
[2019-01-24] MEDS ORDERED: PIPERACILLIN/TAZOBACTAM 3.375 GM VIAL IV SCH (15:15)
--- NOTE | 2019-01-24 15:36 | RADIOLOGY REPORT (SQ) ---
EXAM DESCRIPTION: CTA CHEST COMPLETED DATE/TIME: 01/24/2019 3:12 pm REASON FOR STUDY: Dyspnea, tachycardia, metabolic acidosis COMPARISON: Chest films 01/24/2019, 11/14/2017 TECHNIQUE: CT scan of the chest performed using helical scanning technique with dynamic intravenous contrast injection. Images reviewed with lung, soft tissue and bone windows. Reconstructed coronal and sagittal MPR images reviewed. Additional 3 dimensional post-processing performed to develop Maximal Intensity Projection images (WI P). All images stored on PACS. All CT scanners at this facility use dose modulation, iterative reconstruction, and/or weight based d osing when appropriate to reduce radiation dose to as low as reasonably achievable (ALARA). [facility]: Dose Right [facility]: CareDose [facility]: Dose Right [facility]: Teradose 4D [facility]: DoubleBeam CONTRAST TYPE AND DOSE: contrast/concentration: Isovue 350.00 mg/ml; Total Contrast Delivered: 62.0 ml; Total Saline Delivered: 80.0 ml Contrast bolus optimized for the pulmonary arteries. Not diagnostic for the aorta. RENAL FUNCTION: Creatinine 1.2 RADIATION DOSE: CT Rad equipment meets quality standard of care and radiation dose reduction techniq ues were employed. CTDIvol: 17.9 - 23.2 mGy. DLP: 670 mGy-cm. . LIMITATIONS: None. FINDINGS: LUNGS AND PLEURA: Diffuse bilateral airspace disease, worrisome for alveolar and interstit ial edema. Trace bilateral pleural effusions are present. Pneumonia could not be excluded. No pneu mothorax AORTA AND GREAT VESSELS: No aneurysm. Contrast bolus not optimized for the aorta. HEART: No pericardial effusion. Heavily calcified left coronary artery. Old sternotomy and mitral va lve replacement. PULMONARY ARTERIES: No emboli visualized in the main pulmonary arteries or the segmental branches. HILAR AND MEDIASTINAL STRUCTURES: No identified masses or abnormal nodes. HARDWARE: Old sternotomy and mitral valve replacement UPPER ABDOMEN: Post cholecystectomy THYROID AND OTHER SOFT TISSUES: No masses. No adenopathy. BONES: No acute or significant finding. 3D MIPS: Confirm above findings. OTHER: No other significant finding. IMPRESSION: No CTA evidence of acute pulmonary emboli. Diffuse bilateral airspace disease with trace bilateral pleural effusions likely fluid overload or co ngestive failure COMMENT: Quality ID # [id number]: Final reports with documentation of one or more dose reduction techniques (e.g., Automated exposure control, adjustment of the mA and/or kV according to patient size, use of iterative reconstruction technique) TECHNICAL DOCUMENTATION: JOB ID: [id number] [employer]- All Rights Reserved Reading location - IP/workstation name: [email or web address]
--- NOTE | 2019-01-24 15:42 | PDOC H&P ---
History of Present Illness Admission Date/PCP: 01/24/19 15:16 IVORY TRIVEDI MD Patient complains of: Weakness palpitations and nausea History of Present Illness: MAINE OILVEIRA is a 84 year old female with history of hypertension, mitral valve repair on Xarelto, history of [place], depression, hypothyroidism brought to the emergency room with weakness of 1 week history called the EMS this morning with complaint of increasing pain and nausea associated with abdominal cramps for the last 1 week. is unable to tell why EMS was called today if the symptoms are going on for the last 1 week is is a poor historian. The ER physician tried his best to get information and I tried to get information from the the patient's but unsuccessful. Patient was given 1 L of IV fluids by the EMS and also given 6 units of 1807 followed by 12 units of adenosine for SVT. Heart rate initially came down to 110 in the emergency room the work-up shows questionable pulmonary edema on the lactic acid level of 9.6 with a WBC of 20,400 pH of 7.18 but no signs of infection no fever. The ER physician give 20 mg of IV Lasix. Is highly likely that patient is in septic shock. Discussed the case with Dr. Jefferson's recommendation is to start on vasopressin, amiodarone drip and treat with broad-spectrum antibiotic therapy for sepsis. Past Medical History Cardiac Medical History: Reports: Atrial Fibrillation, Myocardial Infarction, Hyperlipidema, Hypertension - cardiovascular disease/ bp medications, Peripheral Vascular Disease Denies: Pulmonary Embolism, Heart Murmur Pulmonary Medical History: Denies: Asthma, Chronic Obstructive Pulmonary Disease (COPD) Neurological Medical History: Denies: Seizures Endocrine Medical History: Reports: Hypothyroidism GI Medical History: Reports: Other - GI bleed with transfusion 2017 Denies: Hepatitis, Hiatal Hernia Psychiatric Medical History: Reports: Depression Hematology: Denies: Anemia, Sickle Cell Disease Past Surgical History Past Surgical History: Reports: Cholecystectomy, Hysterectomy, Valve Replacement - Mitral valve repair, Vascular Surgery - endarterectomy, left subclavian bypass, right fem bypass Denies: Amputation, Mastectomy, Pacemaker Social History Information Source: Patient, Relative Smoking Status: Former Smoker Frequency of Alcohol Use: None Hx Recreational Drug Use: No Drugs: None Hx Prescription Drug Abuse: No - Advance Directive Resuscitation Status: Full Code Family History Family History: Hypertension Parental Family History Reviewed: Yes - Jamia history of hypertension. Children Family History Reviewed: Yes Sibling(s) Family History Reviewed.: Yes Medication/Allergy Allergies/Adverse Reactions: acetaminophen [From Percocet] Allergy (Verified 03/18/18 12:58) oxycodone [From Percocet] Allergy (Verified 03/18/18 12:58) Review of Systems Constitutional: PRESENT: fatigue, weakness. ABSENT: fever(s), headache(s) Eyes: ABSENT: visual disturbances Ears: ABSENT: hearing changes Nose, Mouth, and Throat: ABSENT: sore throat Cardiovascular: PRESENT: palpitations. ABSENT: chest pain, dyspnea on exertion, orthropnea Respiratory: PRESENT: dyspnea Gastrointestinal: PRESENT: abdominal pain, nausea. ABSENT: diarrhea Integumentary: ABSENT: rash, wounds Neurological: ABSENT: abnormal gait, abnormal speech, confusion, dizziness, focal weakness, syncope Psychiatric: PRESENT: anxiety Physical Exam Vital Signs: Temp Pulse Resp BP Pulse Ox 98.5 F 39 H 143/103 H 98 01/24/19 10:42 01/24/19 10:19 01/24/19 10:19 01/24/19 10:19 Intake & Output 01/23/19 01/24/19 01/25/19 06:59 06:59 06:59 Output Total 35 Balance -35 Weight 48 kg General appearance: PRESENT: disheveled, severe distress, thin Head exam: PRESENT: atraumatic Eye exam: PRESENT: PERRLA Mouth exam: PRESENT: moist, tongue midline Teeth exam: PRESENT: poor dentation Neck exam: ABSENT: carotid bruit, JVD, lymphadenopathy, thyromegaly Respiratory exam: PRESENT: decreased breath sounds, tachypnea Cardiovascular exam: PRESENT: tachycardia GI/Abdominal exam: PRESENT: normal bowel sounds, soft. ABSENT: distended, guarding, mass, organolmegaly, rebound, tenderness Rectal exam: PRESENT: deferred Neurological exam: PRESENT: alert, awake, oriented to person, oriented to place, oriented to time, oriented to situation, CN II-XII grossly intact. ABSENT: motor sensory deficit Psychiatric exam: PRESENT: anxious Results Laboratory Results: 01/24/19 10:09 01/24/19 10:09 01/24/19 01/24/19 01/24/19 10:09 10:09 10:09 WBC 20.8 H RBC 5.21 Hgb 14.4 Hct 46.7 MCV 90 MCH 27.6 MCHC 30.8 L RDW 17.1 H Plt Count 398 Seg Neutrophils % Not Reportable Lymphocytes % Not Reportable Monocytes % Not Reportable Eosinophils % Not Reportable Basophils % Not Reportable Absolute Neutrophils Not Reportable Absolute Lymphocytes Not Reportable Absolute Monocytes Not Reportable Absolute Eosinophils Not Reportable Absolute Basophils Not Reportable Carbonic Acid HCO3/H2CO3 Ratio ABG pH ABG pCO2 ABG pO2 ABG HCO3 ABG O2 Saturation ABG Base Excess FiO2 Sodium 146.6 H Potassium 4.3 Chloride 113 H Carbon Dioxide 14 L Anion Gap 19 BUN 34 H Creatinine 1.20 Est GFR ( Amer) 52 L Est GFR (Non-Af Amer) 43 L Glucose 186 H Lactic Acid Calcium 8.7 Total Bilirubin 1.0 AST 90 H ALT 89 H Alkaline Phosphatase 145 H Total Protein 6.5 Albumin 3.7 Amylase 31 Lipase 55.0 Urine Color Urine Appearance Urine pH Ur Specific [place] Urine Protein Urine Glucose (UA) Urine Ketones Urine Blood Urine Nitrite Ur Leukocyte Esterase Urine WBC (Auto) Urine RBC (Auto) 01/24/19 01/24/19 01/24/19 10:24 12:10 12:45 WBC RBC Hgb Hct MCV MCH MCHC RDW Plt Count Seg Neutrophils % Lymphocytes % Monocytes % Eosinophils % Basophils % Absolute Neutrophils Absolute Lymphocytes Absolute Monocytes Absolute Eosinophils Absolute Basophils Carbonic Acid 1.08 HCO3/H2CO3 Ratio 12:1 ABG pH 7.18 L* ABG pCO2 36.0 ABG pO2 136.7 H ABG HCO3 13.2 L ABG O2 Saturation 98.1 H ABG Base Excess -14.2 FiO2 75% Sodium Potassium Chloride Carbon Dioxide Anion Gap BUN Creatinine Est GFR ( Amer) Est GFR (Non-Af Amer) Glucose Lactic Acid 9.6 H Calcium Total Bilirubin AST ALT Alkaline Phosphatase Total Protein Albumin Amylase Lipase Urine Color YELLOW Urine Appearance CLOUDY Urine pH 5.0 Ur Specific [place] 1.017 Urine Protein 30 H Urine Glucose (UA) NEGATIVE Urine Ketones NEGATIVE Urine Blood NEGATIVE Urine Nitrite NEGATIVE Ur Leukocyte Esterase MODERATE H Urine WBC (Auto) 40 Urine RBC (Auto) 1 01/24/19 01/24/19 10:09 10:09 Creatine Kinase 33 CK-MB (CK-2) 2.16 Troponin I 0.088 NT-Pro-B Natriuret Pep 25100 H Impressions: Chest X-Ray 01/24/19 10:05 IMPRESSION: Bilateral peribronchial and interstitial opacities, likely edema. No large effusion. No dense consolidation. Assessment and Plan - Diagnosis (1) Sepsis Qualifiers: Sepsis type: sepsis due to unspecified organism Qualified Code(s): A41.9 - Sepsis, unspecified organism Is this a current diagnosis for this admission?: Yes Plan: 01/24/2019-patient is going to be admitted to ICU most likely she has sepsis. With lactic acid level of 9.6, WBC count of 20,400 and hypotensive with DEON indicating she is in septic shock. Started on vasopressin drip started on amiodarone for supraventricular tachycardia GI prophylaxis initiated started on Lovenox 55 mg subcu every 12 hours and stop Xarelto. Cardiac enzymes x3 requested start IV fluids 75 cc/h to watch for the fluid overload started on BiPAP. Hernandez's catheter was placed. Cardiac enzymes x3 are requested. Overall prognosis poor condition is critical wants her to be full code. cardiology consult was requested. She was started on IV vancomycin and IV Zosyn. Cultures sputum cultures urine cultures are going to be requested. (2) Metabolic acidosis Is this a current diagnosis for this admission?: Yes Plan: 01/24/2019-patient is in metabolic acidosis pH of 7.18 started on sodium bicarb drip. [place] acidosis most likely secondary to sepsis. (3) Leukocytosis Qualifiers: Leukocytosis type: unspecified Qualified Code(s): D72.829 - Elevated white blood cell count, unspecified Is this a current diagnosis for this admission?: Yes Plan: 01/24/2019-patient came in with a leukocytosis of 20,400. Most likely secondary to sepsis. (4) S/P MVR (mitral valve repair) Is this a current diagnosis for this admission?: No Plan: 01/24/2019-patient has history of mitral valve repair. Xarelto at home. Which was on hold I placed on Lovenox 55 mg subcu every 12 hours. (5) Hypotension Qualifiers: Hypotension type: hypotension due to drug Qualified Code(s): I95.2 - Hypotension due to drugs Is this a current diagnosis for this admission?: Yes Plan: 01/24/2019-patient was hypotensive most likely secondary to sepsis. Started on a vasopressin drip and started on IV fluids. (6) DEON (acute kidney injury) Is this a current diagnosis for this admission?: Yes Plan: 01/24/2019-patient admitted with serum creatinine 1.23 her baseline creatinine is 1.63. AK most likely secondary to sepsis. Start IV fluids at 75 cc/h. - Time Time Spent with patient: 35 or more minutes Medications reviewed and adjusted accordingly: Yes Anticipated discharge: SNF
[2019-01-24] MEDS ORDERED: VANCOMYCIN HCL INJ 1000 MG VIAL IV SCH (15:45)
[2019-01-24] MEDS ORDERED: AMIODARONE HCL 150 MG in DEXTROSE 5%-WATER 100 ML IV ONE (16:00)
[2019-01-24] MEDS ORDERED: VASOPRESSIN INJ 20 UNIT/1 ML VIAL ONE (16:26)
[2019-01-24] MEDS: DEXTROSE 5%-WATER 250 ML with VASOPRESSIN 100 UNIT IV PRN ×2 (16:38)
[2019-01-24] MEDS: DEXTROSE 5%-WATER 1000 ML 1,000 ML with SODIUM BICARBONATE 100 MEQ IV PRN ×2 (16:53)
[2019-01-24 17:49] LABS: CREATINE KINASE MB 4.39 ng/mL (<4.55)
[2019-01-24 18:04] LABS: TROPONIN I 0.246 ng/mL
--- NOTE | 2019-01-24 18:14 | Operative Report ---
Nonrecallable Operative Report DATE OF SURGERY: 01/24/19 PREOPERATIVE DIAGNOSIS: Hypotension, sepsis, phlebosclerosis POSTOPERATIVE DIAGNOSIS: Same as above OPERATION: 1. Ultrasound-guided central venous puncture. 2. Left internal jugular vein central line placement. SURGEON: CHINYERE ALEXANDRE ANESTHESIA: Local TISSUE REMOVED OR ALTERED: None COMPLICATIONS: None apparent ESTIMATED BLOOD LOSS: Minimal PROCEDURE: Drains/implants: Left internal jugular vein central line placed at 14 cm. Procedure in detail: After informed consent was obtained from the patient's , she was laid in the Trendelenburg position in the emergency department. The neck and chest were prepped and draped in a normal sterile fashion. An ultrasound was used to identify the left internal jugular vein. It was compressible with normal flow. Under direct ultrasonic guidance, the left internal jugular vein was cannulated. This was done after 1% lidocaine was infiltrated into the skin. Dark venous, nonpulsatile blood was returned in the syringe. The wire was inserted into the vein. The wire was confirmed to be within the lumen of the vein using the ultrasound device. Next, the catheter was slid over the wire using a modified Seldinger technique. The catheter was then aspirated and flushed x3. The catheter was sutured to the skin. A Biopatch was placed, and an occlusive dressing was secured. The patient tolerated the procedure well. All sponge, instrument, and needle counts were correct. Condition: Critical.
[2019-01-24] MEDS: PIPERACILLIN SODIUM/TAZOBACTAM 2.25 GM in NORMAL SALINE 50 ML IV SCH ×2 (18:20→23:33)
[2019-01-24] MEDS ORDERED: VANCOMYCIN HCL 750 MG in DEXTROSE 5%-WATER 250 ML IV SCH (19:00)
--- NOTE | 2019-01-24 19:14 | RADIOLOGY REPORT (SQ) ---
EXAM DESCRIPTION: CHEST SINGLE VIEW COMPLETED DATE/TIME: 01/24/2019 7:01 pm REASON FOR STUDY: c-line COMPARISON: 01/24/2019 EXAM PARAMETERS: NUMBER OF VIEWS: One view. TECHNIQUE: Single frontal radiographic view of the chest acquired. RADIATION DOSE: NA LIMITATIONS: None. FINDINGS: LUNGS AND PLEURA: Pulmonary edema is unchanged. There is increased opacification in the r etrocardiac area on the left. The medial aspect of the left hemidiaphragm is indistinct. MEDIASTINUM AND HILAR STRUCTURES: No masses. Contour normal. HEART AND VASCULAR STRUCTURES: Cardiomegaly. BONES: No acute findings. HARDWARE: Sternotomy wires. OTHER: No other significant finding. IMPRESSION: Cardiomegaly with pulmonary edema. Cannot exclude left lower lobe pneumonia. TECHNICAL DOCUMENTATION: JOB ID: [id number] [employer]- All Rights Reserved Reading location - IP/workstation name: [email or web address]
[2019-01-24] MEDS: PANTOPRAZOLE SODIUM 40 MG VIAL IV SCH (21:35)
[2019-01-24] MEDS ORDERED: ENOXAPARIN SODIUM INJ 60 MG/0.6 ML DISP.SYRIN SUBCUT SCH (22:00)
--- NOTE | 2019-01-24 22:14 | EKG REPORT ---
SEVERITY:- ABNORMAL ECG - SINUS RHYTHM VENTRICULAR PREMATURE COMPLEXES NONSPECIFIC IVCD WITH LAD : aTYPICAL lbbb LVH WITH SECONDARY REPOLARIZATION ABNORMALITY : Confirmed by: Josefina Jefferson MD 24-Jan-2019 22:13:52
[2019-01-24 23:14] LABS: CREATINE KINASE MB 10.1 ng/mL (<4.55)
[2019-01-24 23:17] LABS: TROPONIN I 0.221 ng/mL
[2019-01-25] MEDS ORDERED: DILTIAZEM HCL/D5W 125 MG/125 ML RTUINJ IV ONE (00:37)
[2019-01-25] MEDS: DILTIAZEM HCL/D5W 125 MG/125 ML RTUINJ IV PRN ×2 (01:00→17:17)
[2019-01-25 05:25] LABS: HEMATOCRIT 44.5 % (36.0-47.0); HEMOGLOBIN 14.7 g/dL (12.0-15.5); MEAN CORPUSCULAR HEMOGLOBIN 28.2 pg (27.0-33.4); PLATELET COUNT 262 10^3/uL (150-450); RED CELL DISTRIBUTION WIDTH 16.2 % (11.5-14.0); WHITE BLOOD COUNT 19.1 10^3/uL (4.0-10.5)
[2019-01-25 05:42] LABS: MEAN CORPUSCULAR VOLUME 86 fl (80-97)
[2019-01-25 05:51] LABS: ALBUMIN 3.2 g/dL (3.5-5.0); ALKALINE PHOSPHATASE 160 U/L (38-126); ANION GAP 14 (5-19); BILIRUBIN,DIRECT 0.5 mg/dL (0.0-0.4); BILIRUBIN,TOTAL 0.8 mg/dL (0.2-1.3); BLOOD UREA NITROGEN 47 mg/dL (7-20); CHLORIDE 102 mmol/L (98-107); CHOLESTEROL 189.17 mg/dL (0-200); GLUCOSE 161 mg/dL (75-110); POTASSIUM 3.4 mmol/L (3.6-5.0); SODIUM 141.1 mmol/L (137-145); TOTAL PROTEIN 5.7 g/dL (6.3-8.2); TRIGLYCERIDES 131 mg/dL (<150)
[2019-01-25] MEDS: PIPERACILLIN SODIUM/TAZOBACTAM 2.25 GM in NORMAL SALINE 50 ML IV SCH ×4 (05:58→23:32)
[2019-01-25 06:01] LABS: CREATINE KINASE MB 16.6 ng/mL (<4.55)
[2019-01-25 06:04] LABS: TROPONIN I 0.239 ng/mL
[2019-01-25 06:32] LABS: ALANINE AMINOTRANSFERASE 1242 U/L (9-52); ASPARTATE AMINO TRANSFERASE 1369 U/L (14-36)
[2019-01-25 06:33] LABS: CARBON DIOXIDE 25 mmol/L (22-30)
[2019-01-25 07:27] LABS: DIRECT LDL 90 mg/dL (<100)
[2019-01-25] MEDS: DEXTROSE 5%-WATER 1000 ML 1,000 ML with SODIUM BICARBONATE 100 MEQ IV PRN ×2 (07:30)
[2019-01-25] MEDS ORDERED: CHOLECALCIFEROL (D3) 1,000 UNIT TABLET PO SCH (10:00)
[2019-01-25] MEDS ORDERED: ENOXAPARIN SODIUM INJ 40 MG/0.4 ML DISP.SYRIN SUBCUT SCH (10:00)
[2019-01-25] MEDS ORDERED: SERTRALINE HCL 50 MG TABLET PO SCH (10:00)
[2019-01-25] MEDS: FERROUS SULFATE 325 MG TABLET PO SCH ×2 (10:28→17:18)
[2019-01-25] MEDS: PANTOPRAZOLE SODIUM 40 MG VIAL IV SCH ×2 (10:28→21:06)
[2019-01-25] MEDS ORDERED: DIGOXIN INJ 0.5 MG/2 ML AMPULE ONE (10:30)
--- NOTE | 2019-01-25 10:33 | RADIOLOGY REPORT (SQ) ---
EXAM DESCRIPTION: CHEST SINGLE VIEW COMPLETED DATE/TIME: 01/25/2019 10:17 am REASON FOR STUDY: Shortness of breath COMPARISON: 01/24/2019 NUMBER OF VIEWS: One view. TECHNIQUE: Single frontal radiographic image of the chest acquired. LIMITATIONS: None. FINDINGS: LUNGS AND PLEURA: Stable appearance. Central line remains in place. MEDIASTINUM AND HILAR STRUCTURES: Stable heart size and mediastinal structures. HEART AND VASCULAR STRUCTURES: Stable appearance. BONES: No acute findings. HARDWARE: Unchanged. OTHER: No other significant finding. IMPRESSION: STABLE APPEARANCE OF THE CHEST. TECHNICAL DOCUMENTATION: JOB ID: [id number] [employer]- All Rights Reserved Reading location - IP/workstation name: [email or web address]
[2019-01-25] MEDS: CYCLOSPORINE 0.05% OPH EMULSIO 0.4 ML DROPERETTE OU SCH ×2 (10:36→17:18)
[2019-01-25] MEDS: NORMAL SALINE 1000 ML 1,000 ML IV PRN ×2 (10:45→17:58)
[2019-01-25] MEDS ORDERED: DIGOXIN INJ 0.5 MG/2 ML AMPULE IV ONE (10:45)
[2019-01-25 11:23] LABS: ARTERIAL BLOOD BASE EXCESS -0.2 mmol/L; ARTERIAL BLOOD H2CO3 0.97 mmol/L (1.05-1.35); ARTERIAL BLOOD HCO3 22.6 mmol/L (20-24); ARTERIAL BLOOD PCO2 32.2 mmHg (35-45); ARTERIAL BLOOD PH 7.46 (7.35-7.45); ARTERIAL BLOOD TOTAL CO2 23.6 mmol/L (21-25)
[2019-01-25 11:25] LABS: ARTERIAL BLOOD FIO2 60%
--- NOTE | 2019-01-25 12:29 | PDOC CONSULTATION ---
Consultation Consult Date: 01/25/19 Attending physician:: SOL DEMARCO Provider Consulted: TASIA NOBLE Consult reason:: sepsis History of Present Illness Admission Date/PCP: 01/24/19 15:16 IVORY TRIVEDI MD History of Present Illness: MAINE OLIVEIRA is a 84 year old female, with multiple comorbidities presented to the emergency room with increasing shortness of breath weakness and abdominal pain which have been going on for a week progressively nausea without vomiting episode of diarrhea about 48 hours prior to admission she suffered some alternating constipation and diarrhea in the past as well as pulmonary emphysema the artery disease and status post myocardial infarction attention. He has approximately a [id number] history but has not smoked in the last 25 years. Permission is sketchy as the patient as well as the spouse recall details consistently or very specifically Past Medical History Cardiac Medical History: Reports: Atrial Fibrillation, Myocardial Infarction, Hyperlipidema, Hypertension - cardiovascular disease/ bp medications, Peripheral Vascular Disease Denies: Pulmonary Embolism, Heart Murmur Pulmonary Medical History: Denies: Asthma, Chronic Obstructive Pulmonary Disease (COPD) Neurological Medical History: Denies: Seizures Endocrine Medical History: Reports: Hypothyroidism GI Medical History: Reports: Other - GI bleed with transfusion 2017 Denies: Hepatitis, Hiatal Hernia Psychiatric Medical History: Reports: Depression Hematology: Denies: Anemia, Sickle Cell Disease Past Surgical History Past Surgical History: Reports: Cholecystectomy, Hysterectomy, Valve Replacement - Mitral valve repair, Vascular Surgery - endarterectomy, left subclavian bypass, right fem bypass Denies: Amputation, Mastectomy, Pacemaker Social History Smoking Status: Former Smoker Cigarettes Packs Per Day: 2 Number of Years Smokin Last Time Smoked: 35yrs Passive smoke exposure as: Both Frequency of Alcohol Use: None Hx Recreational Drug Use: No Drugs: None Hx Prescription Drug Abuse: No Do you have pets?: No Have you had any respiratory illnesses as a child?: No Have you travelled outside of [place] in the past 12 months?: No - Advance Directive Resuscitation Status: Full Code Family History Family History: Hypertension Parental Family History Reviewed: No Children Family History Reviewed: No Sibling(s) Family History Reviewed.: No Medication/Allergy Home Medications: Cholecalciferol (Vitamin D3) [Vitamin D3 1000 Unit Tablet] 2,000 unit PO DAILY 01/24/19 Cyclosporine 0.05% Oph Emulsio [Restasis 0.05% Opthalmic Droperette] 1 drop OU BID 01/24/19 Ferrous Sulfate [Iron] 325 mg PO BID 01/24/19 Nitroglycerin [Nitro-Dur 5 mg (0.2 mg/Hr) Transdermal Patch] 1 each TD DAILY 01/24/19 Rosuvastatin Calcium [Crestor 5 mg Tablet] 5 mg PO QHS 01/24/19 Sertraline HCl [Zoloft] 100 mg PO DAILY 01/24/19 Allergies/Adverse Reactions: acetaminophen [From Percocet] Allergy (Verified 03/18/18 12:58) oxycodone [From Percocet] Allergy (Verified 03/18/18 12:58) Review of Systems ROS unobtainable: Due to mental status Physical Exam Vital Signs: Temp Pulse Resp BP Pulse Ox 98.8 F 112 H 32 H 145/77 H 97 01/25/19 08:00 01/25/19 10:00 01/25/19 10:00 01/25/19 10:00 01/25/19 10:00 Intake & Output 01/24/19 01/25/19 01/26/19 06:59 06:59 06:59 Intake Total 299 300 Output Total 665 550 Balance -366 -250 Weight 57.5 kg General appearance: PRESENT: cooperative, disheveled, mild distress, well- developed, well-nourished Head exam: PRESENT: atraumatic, normocephalic Eye exam: PRESENT: conjunctiva pale, EOMI. ABSENT: nystagmus, periorbital swelling, scleral icterus Mouth exam: PRESENT: dry mucosa, neck supple, tongue midline Neck exam: ABSENT: carotid bruit, full ROM, JVD, lymphadenopathy, meningismus, tenderness, thyromegaly, tracheal deviation, tracheostomy, other Respiratory exam: PRESENT: decreased breath sounds, prolonged expiratory phas, rales, rhonchi, unlabored. ABSENT: retraction, stridor, tachypnea Cardiovascular exam: PRESENT: irregular rhythm Pulses: PRESENT: normal radial pulses GI/Abdominal exam: PRESENT: guarding, hypoactive bowel sounds, tenderness. ABSENT: mass Gentrourinary exam: PRESENT: indwelling catheter Extremities exam: ABSENT: calf tenderness, clubbing, joint swelling Musculoskeletal exam: ABSENT: ambulatory, deformity, dislocation Neurological exam: PRESENT: altered Psychiatric exam: PRESENT: anxious Skin exam: PRESENT: dry, warm Results Laboratory Results: 01/25/19 05:12 01/25/19 05:12 01/24/19 01/24/19 01/24/19 10:09 10:09 10:09 WBC 20.8 H RBC 5.21 Hgb 14.4 Hct 46.7 MCV 90 MCH 27.6 MCHC 30.8 L RDW 17.1 H Plt Count 398 Carbonic Acid HCO3/H2CO3 Ratio ABG pH ABG pCO2 ABG pO2 ABG HCO3 ABG O2 Saturation ABG Base Excess FiO2 Sodium 146.6 H Potassium 4.3 Chloride 113 H Carbon Dioxide 14 L Anion Gap 19 BUN 34 H Creatinine 1.20 Est GFR ( Amer) 52 L Est GFR (Non-Af Amer) 43 L Glucose 186 H Lactic Acid Calcium 8.7 Magnesium Total Bilirubin 1.0 AST 90 H ALT 89 H Alkaline Phosphatase 145 H Ammonia Total Protein 6.5 Albumin 3.7 Triglycerides Cholesterol LDL Cholesterol Direct VLDL Cholesterol HDL Cholesterol Amylase 31 Lipase 55.0 TSH Urine Color Urine Appearance Urine pH Ur Specific [place] Urine Protein Urine Glucose (UA) Urine Ketones Urine Blood Urine Nitrite Ur Leukocyte Esterase Urine WBC (Auto) Urine RBC (Auto) 01/24/19 01/24/19 01/24/19 10:09 10:24 12:10 WBC RBC Hgb Hct MCV MCH MCHC RDW Plt Count Carbonic Acid 1.08 HCO3/H2CO3 Ratio 12:1 ABG pH 7.18 L* ABG pCO2 36.0 ABG pO2 136.7 H ABG HCO3 13.2 L ABG O2 Saturation 98.1 H ABG Base Excess -14.2 FiO2 75% Sodium Potassium Chloride Carbon Dioxide Anion Gap BUN Creatinine Est GFR ( Amer) Est GFR (Non-Af Amer) Glucose Lactic Acid 9.6 H Calcium Magnesium Total Bilirubin AST ALT Alkaline Phosphatase Ammonia Total Protein Albumin Triglycerides Cholesterol LDL Cholesterol Direct VLDL Cholesterol HDL Cholesterol Amylase Lipase TSH 0.98 Urine Color Urine Appearance Urine pH Ur Specific [place] Urine Protein Urine Glucose (UA) Urine Ketones Urine Blood Urine Nitrite Ur Leukocyte Esterase Urine WBC (Auto) Urine RBC (Auto) 01/24/19 01/24/19 01/24/19 12:45 16:32 17:18 WBC RBC Hgb Hct MCV MCH MCHC RDW Plt Count Carbonic Acid HCO3/H2CO3 Ratio ABG pH ABG pCO2 ABG pO2 ABG HCO3 ABG O2 Saturation ABG Base Excess FiO2 Sodium Potassium Chloride Carbon Dioxide Anion Gap BUN Creatinine Est GFR ( Amer) Est GFR (Non-Af Amer) Glucose Lactic Acid 10.6 H 6.2 H Calcium Magnesium Total Bilirubin AST ALT Alkaline Phosphatase Ammonia Total Protein Albumin Triglycerides Cholesterol LDL Cholesterol Direct VLDL Cholesterol HDL Cholesterol Amylase Lipase TSH Urine Color YELLOW Urine Appearance CLOUDY Urine pH 5.0 Ur Specific [place] 1.017 Urine Protein 30 H Urine Glucose (UA) NEGATIVE Urine Ketones NEGATIVE Urine Blood NEGATIVE Urine Nitrite NEGATIVE Ur Leukocyte Esterase MODERATE H Urine WBC (Auto) 40 Urine RBC (Auto) 1 01/25/19 01/25/19 01/25/19 05:12 05:12 05:12 WBC 19.1 H RBC 5.20 Hgb 14.7 Hct 44.5 MCV 86 D MCH 28.2 MCHC 33.0 RDW 16.2 H Plt Count 262 Carbonic Acid HCO3/H2CO3 Ratio ABG pH ABG pCO2 ABG pO2 ABG HCO3 ABG O2 Saturation ABG Base Excess FiO2 Sodium 141.1 Potassium 3.4 L Chloride 102 Carbon Dioxide 25 D Anion Gap 14 BUN 47 H Creatinine 1.49 H Est GFR ( Amer) 40 L Est GFR (Non-Af Amer) 33 L Glucose 161 H Lactic Acid Calcium 8.0 L Magnesium 1.4 L Total Bilirubin 0.8 AST 1369 H ALT 1242 H Alkaline Phosphatase 160 H Ammonia 10.3 Total Protein 5.7 L Albumin 3.2 L Triglycerides 131 Cholesterol 189.17 LDL Cholesterol Direct 90 VLDL Cholesterol 26.0 HDL Cholesterol 61 Amylase Lipase TSH Urine Color Urine Appearance Urine pH Ur Specific [place] Urine Protein Urine Glucose (UA) Urine Ketones Urine Blood Urine Nitrite Ur Leukocyte Esterase Urine WBC (Auto) Urine RBC (Auto) 01/25/19 05:12 WBC RBC Hgb Hct MCV MCH MCHC RDW Plt Count Carbonic Acid HCO3/H2CO3 Ratio ABG pH ABG pCO2 ABG pO2 ABG HCO3 ABG O2 Saturation ABG Base Excess FiO2 Sodium Potassium Chloride Carbon Dioxide Anion Gap BUN Creatinine Est GFR ( Amer) Est GFR (Non-Af Amer) Glucose Lactic Acid Calcium Magnesium Total Bilirubin AST ALT Alkaline Phosphatase Ammonia Total Protein Albumin Triglycerides Cholesterol LDL Cholesterol Direct VLDL Cholesterol HDL Cholesterol Amylase Lipase TSH 2.31 Urine Color Urine Appearance Urine pH Ur Specific [place] Urine Protein Urine Glucose (UA) Urine Ketones Urine Blood Urine Nitrite Ur Leukocyte Esterase Urine WBC (Auto) Urine RBC (Auto) 01/24/19 01/24/19 01/24/19 10:09 10:09 16:32 Creatine Kinase 33 CK-MB (CK-2) 2.16 4.39 Troponin I 0.088 0.246 NT-Pro-B Natriuret Pep 36716 H 01/24/19 01/25/19 22:06 05:12 Creatine Kinase CK-MB (CK-2) 10.10 H 16.60 H Troponin I 0.221 0.239 NT-Pro-B Natriuret Pep Impressions: Chest/Abdomen CTA 01/24/19 14:19 IMPRESSION: No CTA evidence of acute pulmonary emboli. Diffuse bilateral airspace disease with trace bilateral pleural effusions likely fluid overload or congestive failure Chest X-Ray 01/25/19 09:36 IMPRESSION: STABLE APPEARANCE OF THE CHEST. Assessment & Plan - Diagnosis (1) Metabolic acidosis Is this a current diagnosis for this admission?: Yes Plan: Labs- All tests 24 hr 01/24/19 01/24/19 10:09 10:24 ABG pH 7.18 L* ABG pCO2 36.0 Carbon Dioxide 14 L (2) Sepsis Qualifiers: Sepsis type: sepsis due to unspecified organism Qualified Code(s): A41.9 - Sepsis, unspecified organism Is this a current diagnosis for this admission?: Yes Plan: Labs- All tests 24 hr 01/24/19 10:09 WBC 20.8 H No organism identified thus far (3) Atrial fibrillation Qualifiers: Atrial fibrillation type: chronic Qualified Code(s): I48.2 - Chronic atrial fibrillation Is this a current diagnosis for this admission?: Yes Plan: As per cardiology to control ventricular response - Time Total Critical Time (Minutes): 55
--- NOTE | 2019-01-25 13:26 | PDOC PROGRESS REPORT ---
Subjective Progress Note for:: 01/25/19 Subjective:: Surprisingly the patient is speaking but clearly appears ill Reason For Visit: SEPTIC SHOCK Physical Exam Vital Signs: Temp Pulse Resp BP Pulse Ox 95.5 F L 99 32 H 122/77 100 01/25/19 12:00 01/25/19 12:39 01/25/19 12:39 01/25/19 12:00 01/25/19 12:39 Intake & Output 01/24/19 01/25/19 01/26/19 06:59 06:59 06:59 Intake Total 299 350 Output Total 665 750 Balance -366 -400 Weight 57.5 kg General appearance: PRESENT: cooperative, mild distress, well-developed Head exam: PRESENT: atraumatic, normocephalic Eye exam: PRESENT: conjunctiva pink. ABSENT: scleral icterus Ear exam: PRESENT: normal external ear exam Mouth exam: PRESENT: dry mucosa, tongue midline Teeth exam: PRESENT: poor dentation Respiratory exam: PRESENT: clear to auscultation shay, symmetrical, unlabored - At this time. She was just on BiPAP.. ABSENT: accessory muscle use, rales, rh onchi, tachypnea, wheezes Cardiovascular exam: PRESENT: irregular rhythm - With audible heart sounds heard intermittently, +S1, +S2 GI/Abdominal exam: PRESENT: distended, hypoactive bowel sounds, soft, tenderness - Diffuse tenderness but most appreciated in the left lower quadrant Rectal exam: PRESENT: deferred Gentrourinary exam: PRESENT: indwelling catheter Extremities exam: ABSENT: pedal edema Neurological exam: PRESENT: alert, awake, oriented to person, oriented to place, oriented to situation Psychiatric exam: PRESENT: flat affect. ABSENT: agitated, anxious Focused psych exam: ABSENT: delusional, restlessness Results Laboratory Results: 01/25/19 05:12 01/25/19 05:12 01/24/19 01/24/19 01/24/19 10:09 10:09 16:32 WBC RBC Hgb Hct MCV MCH MCHC RDW Plt Count Carbonic Acid HCO3/H2CO3 Ratio ABG pH ABG pCO2 ABG pO2 ABG HCO3 ABG O2 Saturation ABG Base Excess FiO2 Sodium Potassium Chloride Carbon Dioxide Anion Gap BUN Creatinine Est GFR ( Amer) Est GFR (Non-Af Amer) Glucose Lactic Acid 10.6 H Calcium Magnesium Total Bilirubin AST ALT Alkaline Phosphatase Ammonia Total Protein Albumin Triglycerides Cholesterol LDL Cholesterol Direct VLDL Cholesterol HDL Cholesterol Amylase 31 Lipase 55.0 TSH 0.98 01/24/19 01/25/19 01/25/19 17:18 05:12 05:12 WBC 19.1 H RBC 5.20 Hgb 14.7 Hct 44.5 MCV 86 D MCH 28.2 MCHC 33.0 RDW 16.2 H Plt Count 262 Carbonic Acid HCO3/H2CO3 Ratio ABG pH ABG pCO2 ABG pO2 ABG HCO3 ABG O2 Saturation ABG Base Excess FiO2 Sodium Potassium Chloride Carbon Dioxide Anion Gap BUN Creatinine Est GFR ( Amer) Est GFR (Non-Af Amer) Glucose Lactic Acid 6.2 H Calcium Magnesium Total Bilirubin AST ALT Alkaline Phosphatase Ammonia 10.3 Total Protein Albumin Triglycerides Cholesterol LDL Cholesterol Direct VLDL Cholesterol HDL Cholesterol Amylase Lipase TSH 01/25/19 01/25/19 01/25/19 05:12 05:12 10:55 WBC RBC Hgb Hct MCV MCH MCHC RDW Plt Count Carbonic Acid 0.97 L HCO3/H2CO3 Ratio 23:1 ABG pH 7.46 H ABG pCO2 32.2 L ABG pO2 41.0 L ABG HCO3 22.6 ABG O2 Saturation 80.0 L ABG Base Excess -0.2 FiO2 60% Sodium 141.1 Potassium 3.4 L Chloride 102 Carbon Dioxide 25 D Anion Gap 14 BUN 47 H Creatinine 1.49 H Est GFR ( Amer) 40 L Est GFR (Non-Af Amer) 33 L Glucose 161 H Lactic Acid Calcium 8.0 L Magnesium 1.4 L Total Bilirubin 0.8 AST 1369 H ALT 1242 H Alkaline Phosphatase 160 H Ammonia Total Protein 5.7 L Albumin 3.2 L Triglycerides 131 Cholesterol 189.17 LDL Cholesterol Direct 90 VLDL Cholesterol 26.0 HDL Cholesterol 61 Amylase Lipase TSH 2.31 01/24/19 01/24/19 01/24/19 10:09 10:09 16:32 Creatine Kinase 33 CK-MB (CK-2) 2.16 4.39 Troponin I 0.088 0.246 NT-Pro-B Natriuret Pep 58958 H 01/24/19 01/25/19 22:06 05:12 Creatine Kinase CK-MB (CK-2) 10.10 H 16.60 H Troponin I 0.221 0.239 NT-Pro-B Natriuret Pep Impressions: Chest/Abdomen CTA 01/24/19 14:19 IMPRESSION: No CTA evidence of acute pulmonary emboli. Diffuse bilateral airspace disease with trace bilateral pleural effusions likely fluid overload or congestive failure Chest X-Ray 01/25/19 09:36 IMPRESSION: STABLE APPEARANCE OF THE CHEST. Assessment and Plan - Diagnosis (1) Sepsis Qualifiers: Sepsis type: sepsis due to unspecified organism Qualified Code(s): A41.9 - Sepsis, unspecified organism Is this a current diagnosis for this admission?: Yes Plan: 01/24/2019-patient is going to be admitted to ICU most likely she has sepsis. With lactic acid level of 9.6, WBC count of 20,400 and hypotensive with DEON indicating she is in septic shock. Started on vasopressin drip started on amiodarone for supraventricular tachycardia GI prophylaxis initiated started on Lovenox 55 mg subcu every 12 hours and stop Xarelto. Cardiac enzymes x3 requested start IV fluids 75 cc/h to watch for the fluid overload started on BiPAP. Hernandez's catheter was placed. Cardiac enzymes x3 are requested. Overall prognosis poor condition is critical wants her to be full code. cardiology consult was requested. She was started on IV vancomycin and IV Zosyn. Cultures sputum cultures urine cultures are going to be requested. 01/25/2019-the patient is today. Her primary complaint is abdominal pain. Lactic acid is down to 6.2 which is improved. Serial lactic acids have been ordered. Because her abdominal pain we are obtaining a CAT scan of the abdomen to try and isolate a specific source for her sepsis. Blood and urine cultures are negative so far. (2) Metabolic acidosis Is this a current diagnosis for this admission?: Yes Plan: 01/24/2019-patient is in metabolic acidosis pH of 7.18 started on sodium bicarb drip. Bolick acidosis most likely secondary to sepsis. 01/25/2019-the pH has normalized and so the bicarb infusion has been discontinued. We will continue to monitor acid-base status. Metabolic acidosis secondary to sepsis. (3) Leukocytosis Qualifiers: Leukocytosis type: unspecified Qualified Code(s): D72.829 - Elevated white blood cell count, unspecified Is this a current diagnosis for this admission?: Yes Plan: 01/24/2019-patient came in with a leukocytosis of 20,400. Most likely secondary to sepsis. 01/25/2019-still trying to isolate the specific source of infection. White blood cell count is slightly improved from yesterday. Continue to monitor and continue antibiotics. (4) S/P MVR (mitral valve repair) Is this a current diagnosis for this admission?: No Plan: 01/24/2019-patient has history of mitral valve repair. Xarelto at home. Which was on hold I placed on Lovenox 55 mg subcu every 12 hours. 01/25/2019-with the liver enzymes I will check coagulation studies. The patient may need to come off of the heparin if there is auto anticoagulation from liver failure. (5) Hypotension Qualifiers: Hypotension type: hypotension due to drug Qualified Code(s): I95.2 - Hypotension due to drugs Is this a current diagnosis for this admission?: Yes Plan: 01/24/2019-patient was hypotensive most likely secondary to sepsis. Started on a vasopressin drip and started on IV fluids. 01/25/2019-blood pressure improved but the patient is on pressor therapy. We will continue to try and wean pressors. (6) DEON (acute kidney injury) Is this a current diagnosis for this admission?: Yes Plan: 01/24/2019-patient admitted with serum creatinine 1.23 her baseline creatinine is 1.63. AK most likely secondary to sepsis. Start IV fluids at 75 cc/h. 01/25/2019-serum creatinine is higher today. She did receive IV contrast. She does have chronic underlying kidney disease. We will continue to monitor and continue IV fluids. (7) Abdominal pain Qualifiers: Abdominal location: left lower quadrant Qualified Code(s): R10.32 - Left lower quadrant pain Is this a current diagnosis for this admission?: Yes Plan: 01/25/2019-she has generalized tenderness but most localized in left lower quadrant. We are obtaining a CT scan of the abdomen to try and identify the source of her sepsis. She does have constipation as well. (8) Constipation Is this a current diagnosis for this admission?: Yes Plan: 01/25/2019-the patient has a history of constipation. She is tried to move her bowels several times unsuccessfully. We will add stool softeners and laxatives. The CT scan will give us an idea of her fecal load. (9) Atrial fibrillation Qualifiers: Atrial fibrillation type: chronic Qualified Code(s): I48.2 - Chronic atrial fibrillation Is this a current diagnosis for this admission?: Yes Plan: 01/25/2019-please see cardiology note as well. The patient has been restarted on metoprolol with as needed medications available by IV. Continue to monitor rate control versus blood pressure and fluid status. Currently on heparin for anticoagulation. As noted above if auto anticoagulating because of liver injury we will stop the heparin. (10) Acute hepatic failure Qualifiers: Hepatic coma status: without hepatic coma Qualified Code(s): K72.00 - Acute and subacute hepatic failure without coma Is this a current diagnosis for this admission?: Yes Plan: 01/25/2019-the patient's transaminases increased significantly. We are obtaining a CT scan of the abdomen to investigate. It is most likely shock liver due to her sepsis with shock. We will continue to monitor. - Time Time Spent with patient: 35 or more minutes Medications reviewed and adjusted accordingly: Yes
[2019-01-25] MEDS ORDERED: NA PHOS,M-B/NA PHOS,DI-BA (ADULT) 133 ML ENEMA PR PRN (13:43)
[2019-01-25] MEDS ORDERED: BISACODYL 10 MG SUPP.RECT PR ONE (14:00)
[2019-01-25] MEDS ORDERED: ONDANSETRON HCL INJ/PF 4 MG/2 ML SDV IV PRN (14:30)
--- NOTE | 2019-01-25 16:01 | RADIOLOGY REPORT (SQ) ---
EXAM DESCRIPTION: CT ABD/PELVIS ORAL ONLY COMPLETED DATE/TIME: 01/25/2019 3:41 pm REASON FOR STUDY: sepsis with abdo pain, increased LFT's COMPARISON: 02/04/2015 TECHNIQUE: CT scan of the abdomen and pelvis performed with oral contrast only. Images reviewed with lung, soft tissue, and bone windows. Reconstructed coronal and sagittal MPR images reviewed. All poornima ges stored on PACS. All CT scanners at this facility use dose modulation, iterative reconstruction, and/or weight based d osing when appropriate to reduce radiation dose to as low as reasonably achievable (ALARA). [facility]: Dose Right [facility]: CareDose [facility]: Dose Right [facility]: Teradose 4D [facility]: [employer] RADIATION DOSE: CT Rad equipment meets quality standard of care and radiation dose reduction techniq ues were employed. CTDIvol: 6.4 mGy. DLP: 315 mGy-cm.mGy. LIMITATIONS: None. FINDINGS: LOWER CHEST: Small to moderate bilateral pleural effusions with associated atelectasis or consolidation. NON-CONTRASTED LIVER, SPLEEN, ADRENALS: Evaluation limited by lack of IV contrast. No identified sign ificant masses. PANCREAS: No masses. No peripancreatic inflammatory changes. GALLBLADDER: Surgically absent. RIGHT KIDNEY AND URETER: Multiple small cortical defects. No suspicious masses. Assessment limited b y lack of IV contrast. No significant calcifications. No hydronephrosis or hydroureter. LEFT KIDNEY AND URETER: Multiple small cortical defects. No suspicious masses. Assessment limited by lack of IV contrast. No significant calcifications. No hydronephrosis or hydroureter. AORTA AND RETROPERITONEUM: No aneurysm. No retroperitoneal masses or adenopathy. Extensive calcific atherosclerosis. Stent of the left common iliac artery. BOWEL AND PERITONEAL CAVITY: The bowel and colon are generally fluid-filled, with gas and fluid prese nt to the rectum. There is thickening of the terminal ileum, for example series 2, image 64. Sigmoi d diverticulosis without evidence of acute diverticulitis. APPENDIX: Normal. PELVIS, BLADDER, AND ABDOMINAL WALL:No abnormal masses. No free fluid. Bladder normal. Pessary is pr esent in the vagina. BONES: No significant findings. OTHER: No other significant finding. IMPRESSION: 1. The bowel and colon are generally fluid-filled, with gas and fluid present to the rec saad. There is thickening of the terminal ileum, consistent with nonspecific infectious or inflammato ry enteritis and diarrheal illness. 2. Sigmoid diverticulosis without obvious evidence of acute diverticulitis. 3. Pleural effusions and associated consolidation or atelectasis. COMMENT: Quality ID # [id number]: Final reports with documentation of one or more dose reduction techniques (e.g., Automated exposure control, adjustment of the mA and/or kV according to patient size, use of iterative reconstruction technique) TECHNICAL DOCUMENTATION: JOB ID: [id number] [employer]- All Rights Reserved Reading location - IP/workstation name: [email or web address]
--- NOTE | 2019-01-25 16:13 | EKG REPORT ---
SEVERITY:- ABNORMAL ECG - NONSPECIFIC IVCD WITH LAD WIDE COMPLEX TACYCARDIA : Confirmed by: Josefina Jefferson MD 25-Jan-2019 16:12:08
--- NOTE | 2019-01-25 16:16 | EKG REPORT ---
SEVERITY:- ABNORMAL ECG - SINUS TACHYCARDIA MULTIFORM VENTRICULAR PREMATURE COMPLEXES NONSPECIFIC IVCD WITH LAD - ATYPICAL LBBB LVH WITH SECONDARY REPOLARIZATION ABNORMALITY : Confirmed by: Josefina Jefferson MD 25-Jan-2019 16:15:46
--- NOTE | 2019-01-25 20:35 | Progress Note ---
Provider Note Provider Note: CARDIOLOGY PROGRESS NOTE by Dr. Antonio Jefferson on 01/25/2019. SUBJECTIVE: The patient remains in atrial fibrillation. She is on the BiPAP. She still has some shortness of breath. She still has cough but is not able to produce any sputum. The patient denies any anginal symptoms. The patient denies any PND orthopnea. There is no ventricular arrhythmia seen on the monitor. There is no TIA CVA symptoms. There is no bleeding on renal dose adjusted Lovenox. She complains of mild abdominal discomfort especially in the left lower quadrant. There is no hepatosplenomegaly. EXTREMITIES: There is scar of prior vascular surgery in the right groin. Femorals is very much diminished. There is no femoral bruits. Leg pulses are very difficult to palpate. There is no pedal edema. There is no cyanosis or clubbing. There is no DVT or cellulitis. Capillary refill is normal. 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 PSYCHIATRIC the patient does not appear to be agitated or ANXIOUS. PHYSICAL EXAMINATION: The patient is a frail build and appears to be chronically ill. She is in mild respiratory distress. Selected Entries 01/25/19 01/25/19 01/25/19 15:00 15:09 16:00 Temperature 99.7 F Heart Rate ( 100 Monitors) Respiratory 36 H Rate Blood Pressure 124/67 Blood Pressure 86 Mean O2 Sat by Pulse 90 L 97 Oximetry Oxygen Delivery Bi-pap Method ( includes room air) HEAD: IS ATRAUMATIC NORMOCEPHALIC. EYES: PUPILS ARE EQUAL ROUND REGULAR REACTIVE TO LIGHT ACCOMMODATION. There is no conjunctival pallor. There is no scleral icterus. EARS: Tympanic memories are intact. External auditory canals are clear. NOSE: There is no deviated nasal septum. There is no inflammation of the nasal mucous membrane. MOUTH: Mucous membranes are moist. Tongue is moist. There is no ulcers. THROAT: Is negative for any acute inflammation. NECK: There is no JVD. Carotids are equal there is no bruit there is no lymphadenopathy. There is no goiter. There is no lymphadenopathy. Trachea central. LUNGS: Shows bibasilar dry crackles. There is also at the lowermost bases there is absent breath sounds left greater than right with dullness. HEART: S1-S2 is heard. S1 is of variable intensity. There is no S3 gallop. There is no S4 gallop. There is systolic murmur left sternal border and the apex there is no rub. There is no significant mitral regurgitation murmur. ABDOMEN: Is soft she complains of some discomfort on palpating the left lower quadrant. Bowel sounds well heard. There is no tender areas masses. Extremities: Femorals are diminished. There is no femoral bruits there is scar of prior vascular surgery present. Leg pulses difficult to palpate. There is no pedal edema. There is no cyanosis or clubbing. Capillary refill is normal. 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 PSYCHIATRIC: The patient does not appear to be agitated or anxious. Labs- All tests 24 hr 01/25/19 01/25/19 01/25/19 05:12 05:12 05:12 WBC 19.1 H RBC 5.20 Hgb 14.7 Hct 44.5 MCV 86 D MCH 28.2 MCHC 33.0 RDW 16.2 H Plt Count 262 APTT 37.9 H Carbonic Acid HCO3/H2CO3 Ratio ABG pH ABG pCO2 ABG pO2 ABG HCO3 ABG Total CO2 ABG O2 Saturation ABG Base Excess FiO2 Sodium Potassium Chloride Carbon Dioxide Anion Gap BUN Creatinine Est GFR ( Amer) Est GFR (Non-Af Amer) Glucose Hemoglobin A1c % Lactic Acid Calcium Magnesium Total Bilirubin Direct Bilirubin Neonat Total Bilirubin Neonat Direct Bilirubin Neonat Indirect Bili AST ALT Alkaline Phosphatase Ammonia 10.3 CK-MB (CK-2) Troponin I Total Protein Albumin Triglycerides Cholesterol LDL Cholesterol Direct VLDL Cholesterol HDL Cholesterol TSH 01/25/19 01/25/19 01/25/19 05:12 05:12 05:12 WBC RBC Hgb Hct MCV MCH MCHC RDW Plt Count APTT Carbonic Acid HCO3/H2CO3 Ratio ABG pH ABG pCO2 ABG pO2 ABG HCO3 ABG Total CO2 ABG O2 Saturation ABG Base Excess FiO2 Sodium 141.1 Potassium 3.4 L Chloride 102 Carbon Dioxide 25 D Anion Gap 14 BUN 47 H Creatinine 1.49 H Est GFR ( Amer) 40 L Est GFR (Non-Af Amer) 33 L Glucose 161 H Hemoglobin A1c % 5.2 Lactic Acid Calcium 8.0 L Magnesium 1.4 L Total Bilirubin 0.8 Direct Bilirubin 0.5 H Neonat Total Bilirubin Not Reportable Neonat Direct Bilirubin Not Reportable Neonat Indirect Bili Not Reportable AST 1369 H ALT 1242 H Alkaline Phosphatase 160 H Ammonia CK-MB (CK-2) 16.60 H Troponin I 0.239 Total Protein 5.7 L Albumin 3.2 L Triglycerides 131 Cholesterol 189.17 LDL Cholesterol Direct 90 VLDL Cholesterol 26.0 HDL Cholesterol 61 TSH 01/25/19 01/25/19 01/25/19 05:12 10:55 15:52 WBC RBC Hgb Hct MCV MCH MCHC RDW Plt Count APTT Carbonic Acid 0.97 L HCO3/H2CO3 Ratio 23:1 ABG pH 7.46 H ABG pCO2 32.2 L ABG pO2 41.0 L ABG HCO3 22.6 ABG Total CO2 23.6 ABG O2 Saturation 80.0 L ABG Base Excess -0.2 FiO2 60% Sodium Potassium Chloride Carbon Dioxide Anion Gap BUN Creatinine Est GFR ( Amer) Est GFR (Non-Af Amer) Glucose Hemoglobin A1c % Lactic Acid 2.5 H Calcium Magnesium Total Bilirubin Direct Bilirubin Neonat Total Bilirubin Neonat Direct Bilirubin Neonat Indirect Bili AST ALT Alkaline Phosphatase Ammonia CK-MB (CK-2) Troponin I Total Protein Albumin Triglycerides Cholesterol LDL Cholesterol Direct VLDL Cholesterol HDL Cholesterol TSH 2.31 Chest X-Ray 01/24/19 10:05 IMPRESSION: Bilateral peribronchial and interstitial opacities, likely edema. No large effusion. No dense consolidation. Chest/Abdomen CTA 01/24/19 14:19 IMPRESSION: No CTA evidence of acute pulmonary emboli. Diffuse bilateral airspace disease with trace bilateral pleural effusions likely fluid overload or congestive failure Chest X-Ray 01/24/19 18:15 IMPRESSION: Cardiomegaly with pulmonary edema. Cannot exclude left lower lobe pneumonia. Chest X-Ray 01/25/19 09:36 IMPRESSION: STABLE APPEARANCE OF THE CHEST. Abdomen/Pelvis CT 01/25/19 12:15 IMPRESSION: 1. The bowel and colon are generally fluid-filled, with gas and fluid present to the rectum. There is thickening of the terminal ileum, consistent with nonspecific infectious or inflammatory enteritis and diarrheal illness. 2. Sigmoid diverticulosis without obvious evidence of acute diverticulitis. 3. Pleural effusions and associated consolidation or atelectasis. IMPRESSION/RECOMMENDATION: 1. Septic shock most likely secondary to patient's pneumonia: Continue antibiotics. Continue the patient's vasopressin. We will try to taper the patient's vasopressin to off by weaning it down. Note that the patient's lactic acid levels are coming down 2. Lactic acidosis most likely secondary to patient's infection and low perfusion state. Lactic acid levels are improving 3. Bilateral lower lobe pneumonia with effusion: Continue antibiotics. 4.Atrial fibrillation with rapid ventricular response: We will continue the patient on Cardizem infusion. The patient's amiodarone has been discontinued due to the patient's abnormal there are function tests. 5. Abnormal liver function tests: Most likely secondary to 'shock liver.' 6. Coronary artery disease: No anginal symptoms. The patient has a prior his tory of ME. She has a history of stent to the right coronary artery. Note the patient's troponin I which is elevated is trending down this is secondary to a supply demand mismatch type II myocardial infarction. No definite evidence of non-ST elevation ME. The patient has no anginal symptoms. 7. History of mitral valve repair: No significant mitral regurgitation by examination. Later we will get an echocardiogram, when the heart rate is controlled, to assess the status of the mitral valve repair, and the LV ejection fraction 8. Cardiomyopathy with moderately reduced LV ejection fraction by prior echo. Later we will repeat an echo. 9. Severe peripheral vascular disease: Patient is a vasculopath. In view of this I have avoided starting the patient on inotropes to prevent vasocons triction. 10. Acute renal failure: Due to sepsis and hypotension. Avoid nephrotoxic drugs. Medications reviewed medication adjustment discussed with attending physician on the case. Discussed with attending physician in the upholstery technician to formulate a management plan. Medical decision making is of high complexity. 50 minutes spent on this patient with more than 50% of the time spent in direct patient care
[2019-01-25] MEDS: VANCOMYCIN HCL 500 MG in DEXTROSE 5%-WATER 100 ML IV SCH (21:07)
[2019-01-26] MEDS: DILTIAZEM HCL/D5W 125 MG/125 ML RTUINJ IV PRN ×2 (02:03→08:12)
[2019-01-26] MEDS: NORMAL SALINE 1000 ML 1,000 ML IV PRN ×3 (03:53→18:49)
[2019-01-26 04:52] LABS: ARTERIAL BLOOD BASE EXCESS -4.6 mmol/L; ARTERIAL BLOOD H2CO3 0.87 mmol/L (1.05-1.35); ARTERIAL BLOOD HCO3 18.5 mmol/L (20-24); ARTERIAL BLOOD PH 7.42 (7.35-7.45); ARTERIAL BLOOD PO2 53.5 mmHg (80-100); ARTERIAL BLOOD TOTAL CO2 19.4 mmol/L (21-25)
[2019-01-26 04:54] LABS: ARTERIAL BLOOD FIO2 50%
[2019-01-26 04:55] LABS: ABSOLUTE LYMPHOCYTES (AUTO) 1.1 10^3/uL (0.5-4.7); ABSOLUTE NEUT (AUTO) 15.1 10^3/uL (1.7-8.2); BASOPHILS % (AUTO) 0.1 % (0-2); HEMATOCRIT 39.4 % (36.0-47.0); HEMOGLOBIN 12.9 g/dL (12.0-15.5); LYMPHOCYTES % (AUTO) 6.3 % (13-45); MEAN CORPUSCULAR HEMOGLOBIN 27.8 pg (27.0-33.4); MEAN CORPUSCULAR HGB CONC 32.7 g/dL (32.0-36.0); MEAN CORPUSCULAR VOLUME 85 fl (80-97); MONOCYTES % (AUTO) 5.7 % (3-13); PLATELET COUNT 230 10^3/uL (150-450); RED BLOOD COUNT 4.62 10^6/uL (3.72-5.28); RED CELL DISTRIBUTION WIDTH 16.2 % (11.5-14.0); SEGMENTED NEUTROPHILS % (AUTO) 87.9 % (42-78); TOTAL CELLS COUNTED % (AUTO) 100 %; WHITE BLOOD COUNT 17.2 10^3/uL (4.0-10.5)
[2019-01-26 04:59] LABS: APPEARANCE,URINE SLIGHTLY-CLOUDY; BILIRUBIN,URINE NEGATIVE (NEGATIVE); COLOR,URINE YELLOW; GLUCOSE, URINE NEGATIVE (NEGATIVE); KETONES,URINE NEGATIVE (NEGATIVE); LEUKOCYTE ESTERASE,URINE MODERATE (NEGATIVE); NITRITE,URINE NEGATIVE (NEGATIVE); PROTEIN,URINE NEGATIVE (NEGATIVE); URINE SPECIFIC GRAVITY 1.015; UROBILINOGEN,URINE NEGATIVE mg/dL (<2.0)
[2019-01-26 05:24] LABS: ALANINE AMINOTRANSFERASE 751 U/L (9-52); ALBUMIN 2.7 g/dL (3.5-5.0); ALKALINE PHOSPHATASE 153 U/L (38-126); ANION GAP 15 (5-19); ASPARTATE AMINO TRANSFERASE 545 U/L (14-36); BILIRUBIN,DIRECT 0.7 mg/dL (0.0-0.4); BILIRUBIN,TOTAL 1.2 mg/dL (0.2-1.3); BLOOD UREA NITROGEN 31 mg/dL (7-20); CARBON DIOXIDE 22 mmol/L (22-30); CHLORIDE 99 mmol/L (98-107); GLUCOSE 115 mg/dL (75-110); PHOSPHORUS 3.5 mg/dL (2.5-4.5); POTASSIUM 3.3 mmol/L (3.6-5.0); SODIUM 135.7 mmol/L (137-145); TOTAL PROTEIN 4.9 g/dL (6.3-8.2)
[2019-01-26 05:32] LABS: CALCIUM 6.8 mg/dL (8.4-10.2)
[2019-01-26] MEDS: PIPERACILLIN SODIUM/TAZOBACTAM 2.25 GM in NORMAL SALINE 50 ML IV SCH ×3 (05:59→17:35)
[2019-01-26] MEDS: DEXTROSE 5%-WATER 250 ML with VASOPRESSIN 100 UNIT IV PRN ×2 (08:12)
--- NOTE | 2019-01-26 08:46 | RADIOLOGY REPORT (SQ) ---
EXAM DESCRIPTION: CHEST SINGLE VIEW COMPLETED DATE/TIME: 01/26/2019 6:03 am REASON FOR STUDY: sepsis COMPARISON: 01/25/2019 NUMBER OF VIEWS: One view. TECHNIQUE: Single frontal radiographic view of the chest acquired. LIMITATIONS: None. FINDINGS: LUNGS AND PLEURA: Diffuse bilateral airspace disease not significantly changed. MEDIASTINUM AND HILAR STRUCTURES: Stable. HEART AND VASCULATURE: Cardiac enlargement. Vascular congestion. BONES: No acute findings. HARDWARE: Prosthetic heart valve. OTHER: Unchanged position of left IJ central line. IMPRESSION: Asymmetric edema or pneumonia. No significant change. TECHNICAL DOCUMENTATION: JOB ID: [id number] [employer]- All Rights Reserved Reading location - IP/workstation name: [email or web address]
[2019-01-26] MEDS ORDERED: PROPOFOL 1,000 MG/100 ML INFUS..BTL IV ONE (08:57)
[2019-01-26] MEDS ORDERED: PHARMACY COMMUNICATION ORDER MC NR (09:00)
[2019-01-26] MEDS ORDERED: PROPOFOL 1,000 MG/100 ML INFUS..BTL IV PRN (09:04)
[2019-01-26] MEDS ORDERED: MIDAZOLAM HCL 50 MG/100 ML RTUINJ IV PRN (09:05)
[2019-01-26] MEDS ORDERED: SUCCINYLCHOLINE CHLORIDE INJ 200 MG/10 ML VIAL ONE (09:47)
[2019-01-26] MEDS ORDERED: CHOLECALCIFEROL (D3) 1,000 UNIT TABLET NG SCH (10:00)
[2019-01-26] MEDS ORDERED: ENOXAPARIN SODIUM INJ 60 MG/0.6 ML DISP.SYRIN SUBCUT SCH (10:00)
[2019-01-26] MEDS ORDERED: SERTRALINE HCL 50 MG TABLET NG SCH (10:00)
--- NOTE | 2019-01-26 10:09 | RADIOLOGY REPORT (SQ) ---
EXAM DESCRIPTION: CHEST SINGLE VIEW COMPLETED DATE/TIME: 01/26/2019 9:49 am REASON FOR STUDY: line placement ET TUBE AND NG TUBE PLCMT PER PT RN COMPARISON: Earlier same day NUMBER OF VIEWS: One view. TECHNIQUE: Single frontal radiographic image of the chest acquired. LIMITATIONS: None. FINDINGS: LUNGS AND PLEURA: No significant change. No pneumothorax. MEDIASTINUM AND HEART: Stable heart size and mediastinal structures. SUPPORT DEVICES: Interval placement of endotracheal tube with tip between thoracic inlet and baron. Interval placement of nasogastric tube with tip overlying the stomach. BONY STRUCTURES: No acute findings. HARDWARE: Prosthetic heart valve. OTHER: Dilated loops of small bowel. IMPRESSION: Satisfactory position of support apparatus. Reading location - IP/workstation name: [email or web address]
[2019-01-26] MEDS: MAGNESIUM SULFATE/D5W 1 GM/100 ML RTUPB IV SCH ×3 (10:34→17:29)
[2019-01-26] MEDS: FERROUS SULFATE LIQUID 300 MG/5 ML UDC NG SCH ×2 (11:10→17:40)
[2019-01-26] MEDS: CYCLOSPORINE 0.05% OPH EMULSIO 0.4 ML DROPERETTE OU SCH ×2 (11:10→17:38)
[2019-01-26 11:12] LABS: ARTERIAL BLOOD BASE EXCESS -4.7 mmol/L; ARTERIAL BLOOD H2CO3 0.88 mmol/L (1.05-1.35); ARTERIAL BLOOD HCO3 18.6 mmol/L (20-24); ARTERIAL BLOOD O2 SATURATION 95.4 % (94-98); ARTERIAL BLOOD PCO2 29.4 mmHg (35-45); ARTERIAL BLOOD PH 7.42 (7.35-7.45); ARTERIAL BLOOD PO2 74.4 mmHg (80-100); ARTERIAL BLOOD TOTAL CO2 19.5 mmol/L (21-25)
[2019-01-26 11:13] LABS: ARTERIAL BLOOD FIO2 70%
[2019-01-26] MEDS ORDERED: EPINEPHRINE INJ 1 MG/10 ML DISP.SYRIN ONE (11:24)
[2019-01-26] MEDS ORDERED: SODIUM BICARBONATE 8.4% INJ 50 MEQ/50 ML DISP.SYRIN ONE (11:24)
[2019-01-26 11:34] LABS: FIBRINOGEN 567 mg/dL (209-497); INTERNATIONAL RATION (INR) 1.48; PROTHROMBIN TIME 18.7 SEC (11.4-15.4)
[2019-01-26] MEDS: PANTOPRAZOLE SODIUM 40 MG VIAL IV SCH ×2 (11:42→21:43)
--- NOTE | 2019-01-26 12:38 | PDOC PROGRESS REPORT ---
Subjective Progress Note for:: 01/26/19 Subjective:: Patient to be intubated Reason For Visit: SEPTIC SHOCK Physical Exam Vital Signs: Temp Pulse Resp BP Pulse Ox 98.6 F 92 21 H 139/69 H 97 01/26/19 08:00 01/26/19 10:00 01/26/19 10:00 01/26/19 10:00 01/26/19 11:53 Intake & Output 01/25/19 01/26/19 01/27/19 06:59 06:59 06:59 Intake Total 299 2658 1478 Output Total 665 2475 185 Balance -953 066 1328 Weight 57.5 kg 56.8 kg 56.8 kg General appearance: PRESENT: mild distress, well-developed, well-nourished Head exam: PRESENT: atraumatic, normocephalic Eye exam: PRESENT: conjunctiva pink, EOMI, PERRLA. ABSENT: scleral icterus Ear exam: PRESENT: normal external ear exam Mouth exam: PRESENT: moist, tongue midline Neck exam: ABSENT: carotid bruit, JVD, lymphadenopathy, thyromegaly Respiratory exam: PRESENT: decreased breath sounds, prolonged expiratory phas, rales, rhonchi, unlabored. ABSENT: wheezes Cardiovascular exam: PRESENT: irregular rhythm. ABSENT: diastolic murmur, rubs, systolic murmur Pulses: PRESENT: normal dorsalis pedis pul Vascular exam: PRESENT: normal capillary refill GI/Abdominal exam: PRESENT: normal bowel sounds, soft. ABSENT: distended, guarding, mass, organolmegaly, rebound, tenderness Rectal exam: PRESENT: deferred Gentrourinary exam: PRESENT: indwelling catheter Extremities exam: PRESENT: full ROM. ABSENT: calf tenderness, clubbing, pedal edema Neurological exam: PRESENT: awake. ABSENT: motor sensory deficit Psychiatric exam: PRESENT: appropriate affect, normal mood. ABSENT: homicidal ideation, suicidal ideation Skin exam: PRESENT: dry, intact, warm. ABSENT: cyanosis, rash Results Laboratory Results: 01/26/19 04:40 01/26/19 04:40 01/25/19 01/26/19 01/26/19 15:52 00:18 04:40 WBC 17.2 H RBC 4.62 Hgb 12.9 Hct 39.4 MCV 85 MCH 27.8 MCHC 32.7 RDW 16.2 H Plt Count 230 Seg Neutrophils % 87.9 H Lymphocytes % 6.3 L Monocytes % 5.7 Eosinophils % 0.0 Basophils % 0.1 Absolute Neutrophils 15.1 H Absolute Lymphocytes 1.1 Absolute Monocytes 1.0 Absolute Eosinophils 0.0 Absolute Basophils 0.0 Carbonic Acid HCO3/H2CO3 Ratio ABG pH ABG pCO2 ABG pO2 ABG HCO3 ABG O2 Saturation ABG Base Excess FiO2 Sodium Potassium Chloride Carbon Dioxide Anion Gap BUN Creatinine Est GFR ( Amer) Est GFR (Non-Af Amer) Glucose Lactic Acid 2.5 H 3.4 H Calcium Phosphorus Magnesium Total Bilirubin AST ALT Alkaline Phosphatase Total Protein Albumin Urine Color Urine Appearance Urine pH Ur Specific [place] Urine Protein Urine Glucose (UA) Urine Ketones Urine Blood Urine Nitrite Ur Leukocyte Esterase Urine WBC (Auto) Urine RBC (Auto) 01/26/19 01/26/19 01/26/19 04:40 04:40 04:40 WBC RBC Hgb Hct MCV MCH MCHC RDW Plt Count Seg Neutrophils % Lymphocytes % Monocytes % Eosinophils % Basophils % Absolute Neutrophils Absolute Lymphocytes Absolute Monocytes Absolute Eosinophils Absolute Basophils Carbonic Acid HCO3/H2CO3 Ratio ABG pH ABG pCO2 ABG pO2 ABG HCO3 ABG O2 Saturation ABG Base Excess FiO2 Sodium 135.7 L Potassium 3.3 L Chloride 99 Carbon Dioxide 22 Anion Gap 15 BUN 31 H Creatinine 1.19 Est GFR ( Amer) 52 L Est GFR (Non-Af Amer) 43 L Glucose 115 H Lactic Acid 4.6 H Calcium 6.8 L* Phosphorus 3.5 Magnesium 1.3 L Total Bilirubin 1.2 AST 545 H ALT 751 H Alkaline Phosphatase 153 H Total Protein 4.9 L Albumin 2.7 L Urine Color YELLOW Urine Appearance SLIGHTLY-CLOUDY Urine pH 5.0 Ur Specific [place] 1.015 Urine Protein NEGATIVE Urine Glucose (UA) NEGATIVE Urine Ketones NEGATIVE Urine Blood LARGE H Urine Nitrite NEGATIVE Ur Leukocyte Esterase MODERATE H Urine WBC (Auto) 7 Urine RBC (Auto) 23 01/26/19 01/26/19 01/26/19 04:42 09:40 10:20 WBC RBC Hgb Hct MCV MCH MCHC RDW Plt Count Seg Neutrophils % Lymphocytes % Monocytes % Eosinophils % Basophils % Absolute Neutrophils Absolute Lymphocytes Absolute Monocytes Absolute Eosinophils Absolute Basophils Carbonic Acid 0.87 L Cancelled HCO3/H2CO3 Ratio 21:1 Cancelled ABG pH 7.42 Cancelled ABG pCO2 29.0 L Cancelled ABG pO2 53.5 L Cancelled ABG HCO3 18.5 L Cancelled ABG O2 Saturation 89.0 L Cancelled ABG Base Excess -4.6 Cancelled FiO2 50% Cancelled Sodium Potassium Chloride Carbon Dioxide Anion Gap BUN Creatinine Est GFR ( Amer) Est GFR (Non-Af Amer) Glucose Lactic Acid 4.5 H Calcium Phosphorus Magnesium Total Bilirubin AST ALT Alkaline Phosphatase Total Protein Albumin Urine Color Urine Appearance Urine pH Ur Specific [place] Urine Protein Urine Glucose (UA) Urine Ketones Urine Blood Urine Nitrite Ur Leukocyte Esterase Urine WBC (Auto) Urine RBC (Auto) 01/26/19 01/26/19 10:20 11:00 WBC RBC Hgb Hct MCV MCH MCHC RDW Plt Count Seg Neutrophils % Lymphocytes % Monocytes % Eosinophils % Basophils % Absolute Neutrophils Absolute Lymphocytes Absolute Monocytes Absolute Eosinophils Absolute Basophils Carbonic Acid Cancelled 0.88 L HCO3/H2CO3 Ratio Cancelled 21:1 ABG pH Cancelled 7.42 ABG pCO2 Cancelled 29.4 L ABG pO2 Cancelled 74.4 L ABG HCO3 Cancelled 18.6 L ABG O2 Saturation Cancelled 95.4 ABG Base Excess Cancelled -4.7 FiO2 Cancelled 70% Sodium Potassium Chloride Carbon Dioxide Anion Gap BUN Creatinine Est GFR ( Amer) Est GFR (Non-Af Amer) Glucose Lactic Acid Calcium Phosphorus Magnesium Total Bilirubin AST ALT Alkaline Phosphatase Total Protein Albumin Urine Color Urine Appearance Urine pH Ur Specific [place] Urine Protein Urine Glucose (UA) Urine Ketones Urine Blood Urine Nitrite Ur Leukocyte Esterase Urine WBC (Auto) Urine RBC (Auto) 01/24/19 01/24/19 01/24/19 10:09 10:09 16:32 Creatine Kinase 33 CK-MB (CK-2) 2.16 4.39 Troponin I 0.088 0.246 NT-Pro-B Natriuret Pep 87542 H 01/24/19 01/25/19 01/26/19 22:06 05:12 04:40 Creatine Kinase CK-MB (CK-2) 10.10 H 16.60 H Troponin I 0.221 0.239 NT-Pro-B Natriuret Pep 54055 H Impressions: Chest/Abdomen CTA 01/24/19 14:19 IMPRESSION: No CTA evidence of acute pulmonary emboli. Diffuse bilateral airspace disease with trace bilateral pleural effusions likely fluid overload or congestive failure Abdomen/Pelvis CT 01/25/19 12:15 IMPRESSION: 1. The bowel and colon are generally fluid-filled, with gas and fluid present to the rectum. There is thickening of the terminal ileum, consistent with nonspecific infectious or inflammatory enteritis and diarrheal illness. 2. Sigmoid diverticulosis without obvious evidence of acute diverticulitis. 3. Pleural effusions and associated consolidation or atelectasis. Chest X-Ray 01/26/19 06:00 IMPRESSION: Asymmetric edema or pneumonia. No significant change. Assessment & Plan - Diagnosis (1) Metabolic acidosis Is this a current diagnosis for this admission?: Yes Plan: Will proceed with intubation today (2) Sepsis Qualifiers: Sepsis type: sepsis due to unspecified organism Qualified Code(s): A41.9 - Sepsis, unspecified organism Is this a current diagnosis for this admission?: Yes Plan: No organism identified thus far (3) Atrial fibrillation Qualifiers: Atrial fibrillation type: chronic Qualified Code(s): I48.2 - Chronic atrial fibrillation Is this a current diagnosis for this admission?: Yes Plan: as per cardio - Time Total Critical Time (Minutes): 60 Inpatient Scribe Statement - . Entered by Carito Harmon, acting as scribe for .
[2019-01-26] MEDS: FUROSEMIDE INJ/PF 20 MG/2 ML SDV IV SCH ×2 (14:18→21:43)
[2019-01-26] MEDS ORDERED: ALTEPLASE INJ 100 MG VIAL ONE (15:02)
[2019-01-26] MEDS ORDERED: ALTEPLASE INJ 2 MG VIAL (CATH CLEARANCE) INJ ONE (15:30)
[2019-01-26] MEDS ORDERED: MAGNESIUM SULFATE/D5W 1 GM/100 ML RTUPB IV ONE (16:45)
[2019-01-26] MEDS: ALBUMIN HUMAN 12.5 GM/50 ML RTUINJ IV SCH ×2 (17:44→19:41)
--- NOTE | 2019-01-26 17:54 | PDOC CONSULTATION ---
Consultation Consult Date: 01/26/19 Provider Consulted: DONNA CHANEY Consult reason:: Sepsis with tickened ileum History of Present Illness Admission Date/PCP: 01/24/19 15:16 IVORY TRIVEDI MD Patient complains of: abdominal pains History of Present Illness: MAINE OLIVEIRA is a 84 year old female with history of OH,AFib on Xarelto, chronic IBS,Mitral valve repair, Fem-fem Bypass for iliac disease c/o severe abdominal pains since a week [employer] associated with nausea. Had CT scan abdomen showed thickened wall of terminal ileum compatible with infectious vs inflammatory ileitis. WBC 20k. Patient is intubated with WBC 16K today. Past Medical History Cardiac Medical History: Reports: Atrial Fibrillation, Myocardial Infarction, Hyperlipidema, Hypertension - cardiovascular disease/ bp medications, Peripheral Vascular Disease Denies: Pulmonary Embolism, Heart Murmur Pulmonary Medical History: Denies: Asthma, Chronic Obstructive Pulmonary Disease (COPD) Neurological Medical History: Denies: Seizures Endocrine Medical History: Reports: Hypothyroidism GI Medical History: Reports: Other - GI bleed with transfusion 2017 Denies: Hepatitis, Hiatal Hernia Psychiatric Medical History: Reports: Depression Hematology: Denies: Anemia, Sickle Cell Disease Past Surgical History Past Surgical History: Reports: Cholecystectomy, Hysterectomy, Valve Replacement - Mitral valve repair, Vascular Surgery - endarterectomy, left subclavian bypass , right fem bypass Denies: Amputation, Mastectomy, Pacemaker Social History Smoking Status: Former Smoker Cigarettes Packs Per Day: 2 Number of Years Smokin Last Time Smoked: 35yrs Frequency of Alcohol Use: None Hx Recreational Drug Use: No Drugs: None Hx Prescription Drug Abuse: No - Advance Directive Resuscitation Status: Full Code Family History Family History: Hypertension Parental Family History Reviewed: Yes - both parents had CAD Children Family History Reviewed: Yes - daughter with ulcerative colitis Sibling(s) Family History Reviewed.: No Medication/Allergy Home Medications: Cholecalciferol (Vitamin D3) [Vitamin D3 1000 Unit Tablet] 2,000 unit PO DAILY 01/24/19 Cyclosporine 0.05% Oph Emulsio [Restasis 0.05% Opthalmic Droperette] 1 drop OU BID 01/24/19 Ferrous Sulfate [Iron] 325 mg PO BID 01/24/19 Nitroglycerin [Nitro-Dur 5 mg (0.2 mg/Hr) Transdermal Patch] 1 each TD DAILY 01/24/19 Rosuvastatin Calcium [Crestor 5 mg Tablet] 5 mg PO QHS 01/24/19 Sertraline HCl [Zoloft] 100 mg PO DAILY 01/24/19 Allergies/Adverse Reactions: acetaminophen [From Percocet] Allergy (Verified 03/18/18 12:58) oxycodone [From Percocet] Allergy (Verified 03/18/18 12:58) Review of Systems Constitutional: PRESENT: other - no fever/chills Eyes: PRESENT: other - no visual/hearing changes Cardiovascular: PRESENT: other - no chest pains/cough Gastrointestinal: PRESENT: abdominal pain, nausea, other - chronic IBS Physical Exam Vital Signs: Temp Pulse Resp BP Pulse Ox 100.0 F 81 20 120/67 97 01/26/19 16:51 01/26/19 16:00 01/26/19 16:51 01/26/19 16:51 01/26/19 16:51 Intake & Output 01/25/19 01/26/19 01/27/19 06:59 06:59 06:59 Intake Total 299 2658 1642 Output Total 665 2475 585 Balance -295 192 9622 Weight 57.5 kg 56.8 kg 56.8 kg Exam: intubated and sedated Vascular exam: PRESENT: pallor - of both feet and cool with poor cap refill GI/Abdominal exam: PRESENT: soft - difficult to tell if with tenderness because of intubation and sedation Rectal exam: PRESENT: deferred Skin exam: PRESENT: mottled - diffuse, pallor, petechiae - diffuse areas of ecchymosis primarily along both breast , flanks Results Laboratory Results: 01/26/19 04:40 01/26/19 04:40 01/25/19 01/26/19 01/26/19 05:12 00:18 04:40 WBC 19.1 H 17.2 H RBC 5.20 4.62 Hgb 14.7 12.9 Hct 44.5 39.4 MCV 86 D 85 MCH 28.2 27.8 MCHC 33.0 32.7 RDW 16.2 H 16.2 H Plt Count 262 230 Seg Neutrophils % 87.9 H Lymphocytes % 6.3 L Monocytes % 5.7 Eosinophils % 0.0 Basophils % 0.1 Absolute Neutrophils 15.1 H Absolute Lymphocytes 1.1 Absolute Monocytes 1.0 Absolute Eosinophils 0.0 Absolute Basophils 0.0 Carbonic Acid HCO3/H2CO3 Ratio ABG pH ABG pCO2 ABG pO2 ABG HCO3 ABG O2 Saturation ABG Base Excess FiO2 Sodium Potassium Chloride Carbon Dioxide Anion Gap BUN Creatinine Est GFR ( Amer) Est GFR (Non-Af Amer) Glucose Lactic Acid 3.4 H Calcium Phosphorus Magnesium Total Bilirubin AST ALT Alkaline Phosphatase Total Protein Albumin Urine Color Urine Appearance Urine pH Ur Specific [place] Urine Protein Urine Glucose (UA) Urine Ketones Urine Blood Urine Nitrite Ur Leukocyte Esterase Urine WBC (Auto) Urine RBC (Auto) 01/26/19 01/26/19 01/26/19 04:40 04:40 04:40 WBC RBC Hgb Hct MCV MCH MCHC RDW Plt Count Seg Neutrophils % Lymphocytes % Monocytes % Eosinophils % Basophils % Absolute Neutrophils Absolute Lymphocytes Absolute Monocytes Absolute Eosinophils Absolute Basophils Carbonic Acid HCO3/H2CO3 Ratio ABG pH ABG pCO2 ABG pO2 ABG HCO3 ABG O2 Saturation ABG Base Excess FiO2 Sodium 135.7 L Potassium 3.3 L Chloride 99 Carbon Dioxide 22 Anion Gap 15 BUN 31 H Creatinine 1.19 Est GFR ( Amer) 52 L Est GFR (Non-Af Amer) 43 L Glucose 115 H Lactic Acid 4.6 H Calcium 6.8 L* Phosphorus 3.5 Magnesium 1.3 L Total Bilirubin 1.2 AST 545 H ALT 751 H Alkaline Phosphatase 153 H Total Protein 4.9 L Albumin 2.7 L Urine Color YELLOW Urine Appearance SLIGHTLY-CLOUDY Urine pH 5.0 Ur Specific [place] 1.015 Urine Protein NEGATIVE Urine Glucose (UA) NEGATIVE Urine Ketones NEGATIVE Urine Blood LARGE H Urine Nitrite NEGATIVE Ur Leukocyte Esterase MODERATE H Urine WBC (Auto) 7 Urine RBC (Auto) 23 01/26/19 01/26/19 01/26/19 04:42 09:40 10:20 WBC RBC Hgb Hct MCV MCH MCHC RDW Plt Count Seg Neutrophils % Lymphocytes % Monocytes % Eosinophils % Basophils % Absolute Neutrophils Absolute Lymphocytes Absolute Monocytes Absolute Eosinophils Absolute Basophils Carbonic Acid 0.87 L Cancelled HCO3/H2CO3 Ratio 21:1 Cancelled ABG pH 7.42 Cancelled ABG pCO2 29.0 L Cancelled ABG pO2 53.5 L Cancelled ABG HCO3 18.5 L Cancelled ABG O2 Saturation 89.0 L Cancelled ABG Base Excess -4.6 Cancelled FiO2 50% Cancelled Sodium Potassium Chloride Carbon Dioxide Anion Gap BUN Creatinine Est GFR ( Amer) Est GFR (Non-Af Amer) Glucose Lactic Acid 4.5 H Calcium Phosphorus Magnesium Total Bilirubin AST ALT Alkaline Phosphatase Total Protein Albumin Urine Color Urine Appearance Urine pH Ur Specific [place] Urine Protein Urine Glucose (UA) Urine Ketones Urine Blood Urine Nitrite Ur Leukocyte Esterase Urine WBC (Auto) Urine RBC (Auto) 01/26/19 01/26/19 01/26/19 10:20 11:00 16:00 WBC RBC Hgb Hct MCV MCH MCHC RDW Plt Count Seg Neutrophils % Lymphocytes % Monocytes % Eosinophils % Basophils % Absolute Neutrophils Absolute Lymphocytes Absolute Monocytes Absolute Eosinophils Absolute Basophils Carbonic Acid Cancelled 0.88 L HCO3/H2CO3 Ratio Cancelled 21:1 ABG pH Cancelled 7.42 ABG pCO2 Cancelled 29.4 L ABG pO2 Cancelled 74.4 L ABG HCO3 Cancelled 18.6 L ABG O2 Saturation Cancelled 95.4 ABG Base Excess Cancelled -4.7 FiO2 Cancelled 70% Sodium Potassium Chloride Carbon Dioxide Anion Gap BUN Creatinine Est GFR ( Amer) Est GFR (Non-Af Amer) Glucose Lactic Acid 4.6 H Calcium Phosphorus Magnesium Total Bilirubin AST ALT Alkaline Phosphatase Total Protein Albumin Urine Color Urine Appearance Urine pH Ur Specific [place] Urine Protein Urine Glucose (UA) Urine Ketones Urine Blood Urine Nitrite Ur Leukocyte Esterase Urine WBC (Auto) Urine RBC (Auto) 01/24/19 01/24/19 01/24/19 10:09 10:09 16:32 Creatine Kinase 33 CK-MB (CK-2) 2.16 4.39 Troponin I 0.088 0.246 NT-Pro-B Natriuret Pep [id number] H 01/24/19 01/25/19 01/26/19 22:06 05:12 04:40 Creatine Kinase CK-MB (CK-2) 10.10 H 16.60 H Troponin I 0.221 0.239 NT-Pro-B Natriuret Pep 87875 H Impressions: Chest/Abdomen CTA 01/24/19 14:19 IMPRESSION: No CTA evidence of acute pulmonary emboli. Diffuse bilateral airspace disease with trace bilateral pleural effusions likely fluid overload or congestive failure Abdomen/Pelvis CT 01/25/19 12:15 IMPRESSION: 1. The bowel and colon are generally fluid-filled, with gas and fluid present to the rectum. There is thickening of the terminal ileum, consistent with nonspecific infectious or inflammatory enteritis and diarrheal illness. 2. Sigmoid diverticulosis without obvious evidence of acute diverticulitis. 3. Pleural effusions and associated consolidation or atelectasis. Chest X-Ray 01/26/19 06:00 IMPRESSION: Asymmetric edema or pneumonia. No significant change. Assessment & Plan - Diagnosis (1) Terminal ileitis of small intestine Is this a current diagnosis for this admission?: Yes (2) Abdominal pain Qualifiers: Abdominal location: left lower quadrant Qualified Code(s): R10.32 - Left lower quadrant pain Is this a current diagnosis for this admission?: Yes (3) Constipation Is this a current diagnosis for this admission?: Yes (4) Leukocytosis Qualifiers: Leukocytosis type: unspecified Qualified Code(s): D72.829 - Elevated white blood cell count, unspecified Is this a current diagnosis for this admission?: Yes (5) Metabolic acidosis Is this a current diagnosis for this admission?: Yes (7) Sepsis Qualifiers: Sepsis type: sepsis due to unspecified organism Qualified Code(s): A41.9 - Sepsis, unspecified organism Is this a current diagnosis for this admission?: Yes (8) Atrial fibrillation Qualifiers: Atrial fibrillation type: chronic Qualified Code(s): I48.2 - Chronic atrial fibrillation Is this a current diagnosis for this admission?: Yes (9) Hypotension Qualifiers: Hypotension type: hypotension due to drug Qualified Code(s): I95.2 - Hypotension due to drugs Is this a current diagnosis for this admission?: Yes (10) S/P MVR (mitral valve repair) Is this a current diagnosis for this admission?: Yes - Time Time Spent: 30 to 50 Minutes - Inpatient Certification Medical Necessity: Need Close Monitoring Due to Risk of Patient Decompensation, Need For Continuous Telemetry Monitoring, Need for IV Antibiotics, Risk of Complication if Not Cared For in Hospital, Risk of Diagnosis Which Will Require Inpatient Eval/Care/Monitoring - Plan Summary Plan Summary: A/ Has sepsis etiology could be pulmonary,GI Intubated at this time. History of possible ischemia with severe abdominal pains and thickened wall of ileum but no definite colon ischemic findings. CTA of abdomen vessels not well visualized since this was primarily to R/O PE ; which was ruled put Had a long talk with and daughter. At this point i could not R/O i schemia. This may well be academic since patient on pressors and other underlying conditions eg pneumonia,UTI and definitely high risk for any surgical intervention. Actually, she may be improving since pressors are being weaned. Will follow up patient closely.
[2019-01-26] MEDS: VANCOMYCIN HCL 500 MG in DEXTROSE 5%-WATER 100 ML IV SCH (21:40)
[2019-01-26] MEDS ORDERED: DEXTROSE 50%-WATER 25 GM/50 ML DISP.SYRIN IV ONE (23:18)
--- NOTE | 2019-01-26 23:43 | Progress Note ---
Provider Note Provider Note: Critical Care: CODE BLUE 01/26/2019 Code Blue Start: 23:08 I arrived in the ICU to provide care at 23:13 Patient pulseless and breathless. Asystole on monitor at pulse checks. Glucose 32 treated with 50mL D50%W Routine ACLS Epinephrine IV pushes X 6 and Bicarbonate 50meq IV X 2 The patient continued to be poorly responsive with no resumption of cardiac activity despite all resuscitative efforts. The family arrived and her condition was explained and they were allowed to be with her as resuscitative intervention was withdrawn. Resuscitation ceased and the patient was declared at 23:36 Total Critical Care Face to patient time: 23 minutes
--- NOTE | 2019-01-26 23:49 | Death Summary ---
Summary Date : 01/26/19 Time of :: 23:36 Autopsy: No Resuscitation Status: Full Code Primary Care Provider: Mono Donis - Final Diagnosis (1) Atrial fibrillation Is this a current diagnosis for this admission?: Yes (2) Chest pain Is this a current diagnosis for this admission?: Yes (3) Hypotension Is this a current diagnosis for this admission?: Yes (4) S/P MVR (mitral valve repair) Is this a current diagnosis for this admission?: Yes (5) Sepsis Is this a current diagnosis for this admission?: Yes (6) Acute respiratory failure with hypoxia and hypercapnia Is this a current diagnosis for this admission?: Yes Hospital Course:: 01/24/2019-patient is going to be admitted to ICU most likely she has sepsis. With lactic acid level of 9.6, WBC count of 20,400 and hypotensive with DEON indicating she is in septic shock. Started on vasopressin drip started on amiodarone for supraventricular tachycardia GI prophylaxis initiated started on Lovenox 55 mg subcu every 12 hours and stop Xarelto. Cardiac enzymes x3 requested start IV fluids 75 cc/h to watch for the fluid overload started on BiPAP. Hernandez's catheter was placed. Cardiac enzymes x3 are requested. Overall prognosis poor condition is critical wants her to be full code. cardiology consult was requested. She was started on IV vancomycin and IV Zosyn. Cultures sputum cultures urine cultures are going to be requested. 01/25/2019-the patient is today. Her primary complaint is abdominal pain. Lactic acid is down to 6.2 which is improved. Serial lactic acids have been ordered. Because her abdominal pain we are obtaining a CAT scan of the abdomen to try and isolate a specific source for her sepsis. Blood and urine cultures are negative so far. 01/26/2019-the patient was intubated due to respiratory failure earlier in the day and seemed to be reasonably stable when she developed a sudden asystole at 11:08 PM on 01/27/2016. TALA CAMILO was called and all ACLS resuscitative efforts were applied without response. Patient was declared to be and her family was allowed to be with her at the time of cessation of resuscitation efforts.
[2019-01-27 02:12] VITALS: BP 126/72
--- NOTE | 2019-01-27 06:41 | ADVANCED CARE ---
- Diagnosis (1) Sepsis Diagnosis Current: Yes (2) Metabolic acidosis Diagnosis Current: Yes (3) Leukocytosis Diagnosis Current: Yes (4) S/P MVR (mitral valve repair) Diagnosis Current: Yes (5) Hypotension Diagnosis Current: Yes (6) DEON (acute kidney injury) Diagnosis Current: Yes (7) Abdominal pain Diagnosis Current: Yes (8) Constipation Diagnosis Current: Yes (9) Atrial fibrillation Diagnosis Current: Yes (10) Acute hepatic failure Diagnosis Current: Yes Attendance: 2 discussions were had today. One with the porcelain technician and outside of the patient's room. A second was at the bedside with the patient and his daughter. Resuscitation Status: Full Code Discussion: Both discussions revolved around the severity of the patient's illness from infection and possible ischemia. The family is aware that the patient's prognosis is marginal. They wish to continue aggressive care at this time. Care Planning Goals: We will continue to have discussions as the patient's condition either improves or deteriorates. At this time she does remain a full code. Document(s) Completed: No documentation was completed Time Spent: 35 minutes was dedicated to the 2 discussions.
--- NOTE | 2019-01-27 06:51 | PDOC PROGRESS REPORT ---
Subjective Progress Note for:: 01/26/19 Subjective:: The patient is doing poorly. She is exhibiting mottling in the extremities. She is still on vasopressin and fully supported with mechanical ventilation. Reason For Visit: SEPTIC SHOCK Physical Exam Vital Signs: Temp Pulse Resp BP Pulse Ox 100.0 F 81 20 120/67 97 01/26/19 16:51 01/26/19 16:00 01/26/19 16:51 01/26/19 16:51 01/26/19 16:51 Intake & Output 01/25/19 01/26/19 01/27/19 06:59 06:59 06:59 Intake Total 299 2658 1642 Output Total 665 2475 585 Balance -449 965 5736 Weight 57.5 kg 56.8 kg 56.8 kg General appearance: PRESENT: no acute distress, well-developed, other - Extremely ill appearing 84-year-old female intubated and sedated in bed Head exam: PRESENT: atraumatic, normocephalic Ear exam: PRESENT: normal external ear exam Mouth exam: PRESENT: other - Endotracheal tube and nasogastric tube in place Respiratory exam: PRESENT: rhonchi - Rhonchi at the lung bases., symmetrical. ABSENT: rales, tachypnea, wheezes Cardiovascular exam: PRESENT: irregular rhythm GI/Abdominal exam: PRESENT: distended, hypoactive bowel sounds, soft. ABSENT: tenderness - The patient did not experience any wincing with palpation however she is sedated. The abdomen is still distended. Rectal exam: PRESENT: deferred Gentrourinary exam: PRESENT: indwelling catheter Extremities exam: ABSENT: joint swelling, pedal edema Musculoskeletal exam: PRESENT: other - Decreased muscle mass Neurological exam: ABSENT: awake Focused psych exam: ABSENT: restlessness Skin exam: PRESENT: mottled - Mottling of skin noted especially lower extremities. Results Laboratory Results: 01/26/19 04:40 01/26/19 04:40 01/25/19 01/26/19 01/26/19 05:12 00:18 04:40 WBC 19.1 H 17.2 H RBC 5.20 4.62 Hgb 14.7 12.9 Hct 44.5 39.4 MCV 86 D 85 MCH 28.2 27.8 MCHC 33.0 32.7 RDW 16.2 H 16.2 H Plt Count 262 230 Seg Neutrophils % 87.9 H Lymphocytes % 6.3 L Monocytes % 5.7 Eosinophils % 0.0 Basophils % 0.1 Absolute Neutrophils 15.1 H Absolute Lymphocytes 1.1 Absolute Monocytes 1.0 Absolute Eosinophils 0.0 Absolute Basophils 0.0 Carbonic Acid HCO3/H2CO3 Ratio ABG pH ABG pCO2 ABG pO2 ABG HCO3 ABG O2 Saturation ABG Base Excess FiO2 Sodium Potassium Chloride Carbon Dioxide Anion Gap BUN Creatinine Est GFR ( Amer) Est GFR (Non-Af Amer) Glucose Lactic Acid 3.4 H Calcium Phosphorus Magnesium Total Bilirubin AST ALT Alkaline Phosphatase Total Protein Albumin Urine Color Urine Appearance Urine pH Ur Specific [place] Urine Protein Urine Glucose (UA) Urine Ketones Urine Blood Urine Nitrite Ur Leukocyte Esterase Urine WBC (Auto) Urine RBC (Auto) 01/26/19 01/26/19 01/26/19 04:40 04:40 04:40 WBC RBC Hgb Hct MCV MCH MCHC RDW Plt Count Seg Neutrophils % Lymphocytes % Monocytes % Eosinophils % Basophils % Absolute Neutrophils Absolute Lymphocytes Absolute Monocytes Absolute Eosinophils Absolute Basophils Carbonic Acid HCO3/H2CO3 Ratio ABG pH ABG pCO2 ABG pO2 ABG HCO3 ABG O2 Saturation ABG Base Excess FiO2 Sodium 135.7 L Potassium 3.3 L Chloride 99 Carbon Dioxide 22 Anion Gap 15 BUN 31 H Creatinine 1.19 Est GFR ( Amer) 52 L Est GFR (Non-Af Amer) 43 L Glucose 115 H Lactic Acid 4.6 H Calcium 6.8 L* Phosphorus 3.5 Magnesium 1.3 L Total Bilirubin 1.2 AST 545 H ALT 751 H Alkaline Phosphatase 153 H Total Protein 4.9 L Albumin 2.7 L Urine Color YELLOW Urine Appearance SLIGHTLY-CLOUDY Urine pH 5.0 Ur Specific [place] 1.015 Urine Protein NEGATIVE Urine Glucose (UA) NEGATIVE Urine Ketones NEGATIVE Urine Blood LARGE H Urine Nitrite NEGATIVE Ur Leukocyte Esterase MODERATE H Urine WBC (Auto) 7 Urine RBC (Auto) 23 01/26/19 01/26/19 01/26/19 04:42 09:40 10:20 WBC RBC Hgb Hct MCV MCH MCHC RDW Plt Count Seg Neutrophils % Lymphocytes % Monocytes % Eosinophils % Basophils % Absolute Neutrophils Absolute Lymphocytes Absolute Monocytes Absolute Eosinophils Absolute Basophils Carbonic Acid 0.87 L Cancelled HCO3/H2CO3 Ratio 21:1 Cancelled ABG pH 7.42 Cancelled ABG pCO2 29.0 L Cancelled ABG pO2 53.5 L Cancelled ABG HCO3 18.5 L Cancelled ABG O2 Saturation 89.0 L Cancelled ABG Base Excess -4.6 Cancelled FiO2 50% Cancelled Sodium Potassium Chloride Carbon Dioxide Anion Gap BUN Creatinine Est GFR ( Amer) Est GFR (Non-Af Amer) Glucose Lactic Acid 4.5 H Calcium Phosphorus Magnesium Total Bilirubin AST ALT Alkaline Phosphatase Total Protein Albumin Urine Color Urine Appearance Urine pH Ur Specific [place] Urine Protein Urine Glucose (UA) Urine Ketones Urine Blood Urine Nitrite Ur Leukocyte Esterase Urine WBC (Auto) Urine RBC (Auto) 01/26/19 01/26/19 01/26/19 10:20 11:00 16:00 WBC RBC Hgb Hct MCV MCH MCHC RDW Plt Count Seg Neutrophils % Lymphocytes % Monocytes % Eosinophils % Basophils % Absolute Neutrophils Absolute Lymphocytes Absolute Monocytes Absolute Eosinophils Absolute Basophils Carbonic Acid Cancelled 0.88 L HCO3/H2CO3 Ratio Cancelled 21:1 ABG pH Cancelled 7.42 ABG pCO2 Cancelled 29.4 L ABG pO2 Cancelled 74.4 L ABG HCO3 Cancelled 18.6 L ABG O2 Saturation Cancelled 95.4 ABG Base Excess Cancelled -4.7 FiO2 Cancelled 70% Sodium Potassium Chloride Carbon Dioxide Anion Gap BUN Creatinine Est GFR ( Amer) Est GFR (Non-Af Amer) Glucose Lactic Acid 4.6 H Calcium Phosphorus Magnesium Total Bilirubin AST ALT Alkaline Phosphatase Total Protein Albumin Urine Color Urine Appearance Urine pH Ur Specific [place] Urine Protein Urine Glucose (UA) Urine Ketones Urine Blood Urine Nitrite Ur Leukocyte Esterase Urine WBC (Auto) Urine RBC (Auto) 01/24/19 01/24/19 01/24/19 10:09 10:09 16:32 Creatine Kinase 33 CK-MB (CK-2) 2.16 4.39 Troponin I 0.088 0.246 NT-Pro-B Natriuret Pep 58388 H 01/24/19 01/25/19 01/26/19 22:06 05:12 04:40 Creatine Kinase CK-MB (CK-2) 10.10 H 16.60 H Troponin I 0.221 0.239 NT-Pro-B Natriuret Pep [id number] H Impressions: Chest/Abdomen CTA 01/24/19 14:19 IMPRESSION: No CTA evidence of acute pulmonary emboli. Diffuse bilateral airspace disease with trace bilateral pleural effusions likely fluid overload or congestive failure Abdomen/Pelvis CT 01/25/19 12:15 IMPRESSION: 1. The bowel and colon are generally fluid-filled, with gas and fluid present to the rectum. There is thickening of the terminal ileum, consistent with nonspecific infectious or inflammatory enteritis and diarrheal illness. 2. Sigmoid diverticulosis without obvious evidence of acute diverticulitis. 3. Pleural effusions and associated consolidation or atelectasis. Chest X-Ray 01/26/19 06:00 IMPRESSION: Asymmetric edema or pneumonia. No significant change. Assessment and Plan - Diagnosis (1) Sepsis Qualifiers: Sepsis type: sepsis due to unspecified organism Qualified Code(s): A41.9 - Sepsis, unspecified organism Is this a current diagnosis for this admission?: Yes Plan: 01/24/2019-patient is going to be admitted to ICU most likely she has sepsis. With lactic acid level of 9.6, WBC count of 20,400 and hypotensive with DEON indicating she is in septic shock. Started on vasopressin drip started on amiodarone for supraventricular tachycardia GI prophylaxis initiated started on Lovenox 55 mg subcu every 12 hours and stop Xarelto. Cardiac enzymes x3 re quested start IV fluids 75 cc/h to watch for the fluid overload started on BiPAP. Hernandez's catheter was placed. Cardiac enzymes x3 are requested. Overall prognosis poor condition is critical wants her to be full code. cardiology consult was requested. She was started on IV vancomycin and IV Zosyn. Cultures sputum cultures urine cultures are going to be requested. 01/25/2019-the patient is awake and alert today. Her primary complaint is abdominal pain. Lactic acid is down to 6.2 which is improved. Serial lactic acids have been ordered. Because her abdominal pain we are obtaining a CAT scan of the abdomen to try and isolate a specific source for her sepsis. Blood and urine cultures are negative so far. 01/26/2019-due to a decline in the patient's condition she was intubated today. The cause of the sepsis is likely pneumonia however she does have a swollen terminal ileum with a history of systemic atherosclerosis. Ischemia cannot be ruled out. A surgical consult has been ordered. We will continue aggressive therapy including fluids (her lactic acid is still positive) as well as antibiotics and pressor therapy. (2) Metabolic acidosis Is this a current diagnosis for this admission?: Yes Plan: 01/24/2019-patient is in metabolic acidosis pH of 7.18 started on sodium bicarb drip. [place] acidosis most likely secondary to sepsis. 01/25/2019-the pH has normalized and so the bicarb infusion has been d iscontinued. We will continue to monitor acid-base status. Metabolic acidosis secondary to sepsis. 01/26/2019-the patient's lactic acid is still positive but is somewhat improved since admission. I will increase the IV fluids at this time. (3) Leukocytosis Qualifiers: Leukocytosis type: unspecified Qualified Code(s): D72.829 - Elevated white blood cell count, unspecified Is this a current diagnosis for this admission?: Yes Plan: 01/24/2019-patient came in with a leukocytosis of 20,400. Most likely secondary to sepsis. 01/25/2019-still trying to isolate the specific source of infection. White blood cell count is slightly improved from yesterday. Continue to monitor and continue antibiotics. 01/26/2019-with antibiotic therapy the patient's white blood cell count has improved slightly. Continue to monitor with aggressive treatment plan. (4) S/P MVR (mitral valve repair) Is this a current diagnosis for this admission?: No Plan: 01/24/2019-patient has history of mitral valve repair. Xarelto at home. Which was on hold I placed on Lovenox 55 mg subcu every 12 hours. 01/25/2019-with the liver enzymes I will check coagulation studies. The patient may need to come off of the heparin if there is auto anticoagulation from liver failure. 01/26/2019-continue to monitor. Ongoing anticoagulation. If there is any indication we will discontinue her anticoagulation. (5) Hypotension Qualifiers: Hypotension type: hypotension due to drug Qualified Code(s): I95.2 - Hypotension due to drugs Is this a current diagnosis for this admission?: Yes Plan: 01/24/2019-patient was hypotensive most likely secondary to sepsis. Started on a vasopressin drip and started on IV fluids. 01/25/2019-blood pressure improved but the patient is on pressor therapy. We will continue to try and wean pressors. 01/26/2019-still on vasopressin. Will check response to increased IV fluids. (6) DEON (acute kidney injury) Is this a current diagnosis for this admission?: Yes Plan: 01/24/2019-patient admitted with serum creatinine 1.23 her baseline creatinine is 1.63. [place] most likely secondary to sepsis. Start IV fluids at 75 cc/h. 01/25/2019-serum creatinine is higher today. She did receive IV contrast. She does have chronic underlying kidney disease. We will continue to monitor and continue IV fluids. 01/26/2019-serum creatinine is actually normal today but GFR still decreased at 43. (7) Abdominal pain Qualifiers: Abdominal location: left lower quadrant Qualified Code(s): R10.32 - Left lower quadrant pain Is this a current diagnosis for this admission?: Yes Plan: 01/25/2019-she has generalized tenderness but most localized in left lower quadrant. We are obtaining a CT scan of the abdomen to try and identify the source of her sepsis. She does have constipation as well. 01/26/2019-the CT scan revealed swelling of the terminal ileum. I have ordered a surgical consult. This could be infectious versus ischemic. (8) Constipation Is this a current diagnosis for this admission?: Yes Plan: 01/25/2019-the patient has a history of constipation. She is tried to move her bowels several times unsuccessfully. We will add stool softeners and laxatives. The CT scan will give us an idea of her fecal load. 01/26/2019-the CT scan did exhibit air and fluid in the bowel. We will discontinue tube feedings and try and stimulate the gut and resolved the ileus. She does have a nasogastric tube in place connected to suction. (9) Atrial fibrillation Qualifiers: Atrial fibrillation type: chronic Qualified Code(s): I48.2 - Chronic atrial fibrillation Is this a current diagnosis for this admission?: Yes Plan: 01/25/2019-please see cardiology note as well. The patient has been restarted on metoprolol with as needed medications available by IV. Continue to monitor rate control versus blood pressure and fluid status. Currently on heparin for anticoagulation. As noted above if auto anticoagulating because of liver injury we will stop the heparin. 01/26/2019-the patient exhibits good rate control at this time. Continue to monitor. (10) Acute hepatic failure Qualifiers: Hepatic coma status: without hepatic coma Qualified Code(s): K72.00 - Acute and subacute hepatic failure without coma Is this a current diagnosis for this admission?: Yes Plan: 01/25/2019-the patient's transaminases increased significantly. We are obtaining a CT scan of the abdomen to investigate. It is most likely shock liver due to her sepsis with shock. We will continue to monitor. 01/26/2019-hepatic injury is most likely due to shock liver. The transaminases are improved today. We will continue to monitor and hopefully they will continue in to improve with better perfusion. - Time Time Spent with patient: 35 or more minutes Medications reviewed and adjusted accordingly: Yes
== END 2019-01-26 23:36 | DRG 871 ==
LOC: ER 09:53 → EH 14:29 → UNDOADMIN 14:29 → EH 15:16 → ICU 20:47
PROVIDERS: ADMIT Internal Medicine; ATTEND Internal Medicine
PROC: 05HN33Z Insertion of Infusion Device into Left Internal Jugular Vein, Percutaneous Approach (ICD-10-PCS; principal; 2019-01-24)
PROC: B544ZZA Ultrasonography of Left Jugular Veins, Guidance (ICD-10-PCS; 2019-01-24)
PROC: 0BH17EZ Insertion of Endotracheal Airway into Trachea, Via Natural or Artificial Opening (ICD-10-PCS; 2019-01-26)
PROC: 5A1935Z Respiratory Ventilation, Less than 24 Consecutive Hours (ICD-10-PCS; 2019-01-26)
DX: A41.9 Sepsis, unspecified organism (principal); R65.21 Severe sepsis with septic shock; K72.00 Acute and subacute hepatic failure without coma; J18.9 Pneumonia, unspecified organism; N17.9 Acute kidney failure, unspecified; E87.2 Acidosis; F32.9 Major depressive disorder, single episode, unspecified; I10 Essential (primary) hypertension; I48.2 Chronic atrial fibrillation; E03.9 Hypothyroidism, unspecified; I73.9 Peripheral vascular disease, unspecified; Z79.01 Long term (current) use of anticoagulants; R10.32 Left lower quadrant pain; K59.00 Constipation, unspecified; I25.2 Old myocardial infarction; I25.10 Atherosclerotic heart disease of native coronary artery without angina pectoris; Z95.2 Presence of prosthetic heart valve; K58.9 Irritable bowel syndrome, unspecified; Z87.891 Personal history of nicotine dependence; Z82.49 Family history of ischemic heart disease and other diseases of the circulatory system; Z88.6 Allergy status to analgesic agent
CPT/HCPCS: 31500; 36415; 36600; 71045; 71275; 74176; 80053; 80061; 81001; 82140; 82150; 82550; 82553; 82803; 82962; 83036; 83605; 83690; 83735; 83880; 84100; 84443; 84484; 85025; 85027; 85379; 85384; 85610; 85730; 87040; 87070; 87086; 87205; 93005; 93010; 94002; 94660; 96365; 96366; 96375; 99291; C1751; C1887; C1894; J0153; J0171; J0282; J0330; J1160; J1650; J1940; J1956; J2405; J2543; J2704; J3370; J3475; J3490; J7030; J7060; J7614; P9047; S0164